=== PATIENT | female | born 1975 | race Caucasian/White ===

== ENCOUNTER → 2016-11-30 | Outpatient (CLI) | payer MEDICARE, MEDICAID ==
--- NOTE | 2016-11-30 10:58 | REP ---
Clinical: Pain. Strain. Technique: Internal rotation, external rotation, and Y view of the left shoulder. Findings: Small inferior spur at the acromion and subtle cortical irregularity at the acromioclavicular joint suggests mild degenerative change. No acute fracture or dislocation. No periarticular calcifications. Subacromial space is normal. Impression: Mild degenerative changes at the acromioclavicular joint. Signed by Tigre Bethea MD 11/30/2016 10:50 A
== END ==
LOC: M WUC 10:41
PROVIDERS: ATTEND Physician Assistant
DX: S46.812A Strain of other muscles, fascia and tendons at shoulder and upper arm level, left arm, initial encounter (principal); X58.XXXA Exposure to other specified factors, initial encounter; Y92.89 Other specified places as the place of occurrence of the external cause

== ENCOUNTER → 2017-01-19 | Outpatient (CLI) | payer MEDICARE, MEDICAID ==
[2017-01-19 13:46] LABS: BASO % 0.3 % (0.0-1.0); EOS # 0.2 K/mm3 (0.0-0.50); EOS % 2.3 % (0.0-3.0); LYMPH # 2.3 K/mm3 (1.5-4.5); LYMPH % 32.5 % (24.0-44.0); MEAN CORPUSCULAR HEMOGLOBIN 26.3 pg (27.0-33.0); MEAN CORPUSCULAR HGB CONC 31.6 g/dl (32.0-36.5); MEAN CORPUSCULAR VOLUME 83.2 fl (80.0-96.0); MONO # 0.3 K/mm3 (0.0-0.8); MONO % 4.3 % (0.0-5.0); NEUTROPHILS # 4.1 K/mm3 (1.8-7.7); NEUTROPHILS % 59.3 % (36.0-66.0); RED CELL DISTRIBUTION WIDTH 14.9 % (11.5-14.5); WHITE BLOOD COUNT 6.9 K/mm3 (4.0-10.0)
[2017-01-19 14:04] LABS: VITAMIN B12 LEVEL 297 PG/ML (247-911)
[2017-01-19 14:06] LABS: ALBUMIN 3.3 GM/DL (3.2-5.2); ALBUMIN/GLOBULIN RATIO 0.89 (1.00-1.93); ALKALINE PHOSPHATASE 96 U/L (45-117); ALT/SGPT 20 U/L (12-78); ANION GAP 7 MEQ/L (8-16); AST/SGOT 11 U/L (15-37); BILIRUBIN,TOTAL 0.4 MG/DL (0.2-1.0); BLOOD UREA NITROGEN 13 MG/DL (7-18); CALCIUM LEVEL 8.5 MG/DL (8.5-10.1); CARBON DIOXIDE LEVEL 27 MEQ/L (21-32); CHLORIDE LEVEL 104 MEQ/L (98-107); CHOLESTEROL LEVEL 190 MG/DL (<200); CREATININE FOR GFR 0.58 MG/DL (0.55-1.02); FREE T4 1.03 NG/DL (0.76-1.46); GLOMERULAR FILTRATION RATE > 60.0 (>58); GLUCOSE, FASTING 79 MG/DL (70-105); POTASSIUM SERUM 4.2 MEQ/L (3.5-5.1); SODIUM LEVEL 138 MEQ/L (136-145); TRIGLYCERIDES LEVEL 95 MG/DL (<150)
== END ==
LOC: M WUC 09:58
PROVIDERS: ATTEND Family Medicine
DX: Z00.00 Encounter for general adult medical examination without abnormal findings (principal); E78.5 Hyperlipidemia, unspecified; R73.01 Impaired fasting glucose

== ENCOUNTER 2017-05-02 16:15 | Emergency (ER) | payer MEDICARE, MEDICAID ==
[~2017-05-02] VITALS: Ht 157.5 cm; Wt 114.1 kg
[2017-05-02] MEDS ORDERED: PHEN-239 PO (16:27)
[2017-05-02] MEDS ORDERED: POLY1POW4 (16:27)
[2017-05-02] MEDS ORDERED: NS 1,000 ML IV SCH (16:55)
[2017-05-02] MEDS ORDERED: NS 1,000 ML IV ONE (17:00)
[2017-05-02] MEDS ORDERED: LORazepam 2 MG/ML VIAL (J2060) IV STA (17:00)
[2017-05-02 17:46] LABS: ANION GAP 9 MEQ/L (8-16); BASO % 0.4 % (0.0-1.0); BLOOD UREA NITROGEN 13 MG/DL (7-18); CALCIUM LEVEL 9.4 MG/DL (8.5-10.1); CARBON DIOXIDE LEVEL 26 MEQ/L (21-32); CHLORIDE LEVEL 102 MEQ/L (98-107); CREATININE FOR GFR 0.72 MG/DL (0.55-1.02); EOS # 0.2 K/mm3 (0.0-0.50); EOS % 1.8 % (0.0-3.0); FREE T4 1.13 NG/DL (0.76-1.46); GLOMERULAR FILTRATION RATE > 60.0 (>58); GLUCOSE, FASTING 93 MG/DL (70-105); LARGE UNSTAINED CELL # 0.2 K/mm3 (0.0-0.4); LARGE UNSTAINED CELL % 1.9 % (0.0-4.0); LYMPH # 3.1 K/mm3 (1.5-4.5); LYMPH % 32.9 % (24.0-44.0); MEAN CORPUSCULAR HEMOGLOBIN 27.3 pg (27.0-33.0); MEAN CORPUSCULAR HGB CONC 32.9 g/dl (32.0-36.5); MEAN CORPUSCULAR VOLUME 83.1 fl (80.0-96.0); MONO # 0.3 K/mm3 (0.0-0.8); MONO % 3.5 % (0.0-5.0); NEUTROPHILS # 5.3 K/mm3 (1.8-7.7); NEUTROPHILS % 59.5 % (36.0-66.0); PLATELET COUNT, AUTOMATED 247 k/mm3 (150-450); SODIUM LEVEL 137 MEQ/L (136-145); WHITE BLOOD COUNT 8.9 K/mm3 (4.0-10.0)
--- NOTE | 2017-05-02 19:07 | ECGEPIP ---
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
[2017-05-02 19:51] VITALS: BP 129/82
== END 2017-05-02 20:05 | disposition home or self-care (01) ==
LOC: M ED 16:15
DX: R00.2 Palpitations (principal)
CPT/HCPCS: 80048; 82550; 82553; 83735; 84439; 84443; 84484; 85025; 93005; 93041; 96374; 99285; J2060

== ENCOUNTER → 2017-06-16 | Outpatient (REF) | payer MEDICARE, MEDICAID ==
[~2017-06-16] MED LIST: NORCOTAB PO; PHEN-239 PO; POLY1POW4
[2017-06-16 13:31] LABS: MICROSCOPIC INDICATED? MAN YES (NO)
[2017-06-16 13:32] LABS: BACTERIA, URINE LARGE AMOUNT; HYALINE CAST, URINE NONE SEEN /lpf (0-1); MICROSCOPIC EXAM PERFORMED; SQUAMOUS EPITHELIAL CELL URINE SMALL AMOUNT /hpf (SMALL AMT)
== END ==
LOC: M LAB REF 12:57
PROVIDERS: ATTEND Physician Assistant
DX: M54.5 Low back pain (principal)

== ENCOUNTER → 2017-06-16 | Outpatient (CLI) | payer MEDICARE, MEDICAID ==
--- NOTE | 2017-06-16 15:08 | REP ---
CT PELVIS WITHOUT CONTRAST: 06/16/2017 CLINICAL HISTORY: Right flank pain, hematuria. COMPARISON: CT with contrast 10/28/2015. TECHNIQUE: Noncontrast protocol with coronal and sagittal reconstructions provided. FINDINGS: CT ABDOMEN: Lung bases are clear. Heart not enlarged. There is no pericardial thickening or effusion. I see no hiatal hernia. The liver, spleen, gallbladder and pancreas are grossly unremarkable. Vertical diameter of the right lobe liver is about 17 cm in the midclavicular line. Not enlarged. No intrahepatic biliary dilatation nor adjacent ascites. The gallbladder shows no calcified stone or mass but is partially contracted. No fatty liver change. No focal splenic lesion. Adrenal glands are normal. Kidneys show no stone, mass, cyst, hydronephrosis or hydroureter. Ureters are showing normal course to the bladder without filling defect or dilatation. The aorta is without aneurysm or calcifications. No periaortic or retroperitoneal pathologic sized lymphadenopathy. Small bowel loops are grossly intact. There is a tiny umbilical hernia of omental fat, unchanged. No bowel herniation. Stool and gas scattered in the colon without signs of colitis or diverticulitis. Appendix is seen and normal. Bone windows show lumbar spine without compression deformity and there is mild disc space narrowing at L4-5. Marginal osteophytes throughout the mid lower thoracic spine included. Visualized ribs are intact. Posterior elements in the lower lumbar spine show minor hypertrophic facet change at L5-S1. CT PELVIS: The SI joints show sclerosis iliac and sacral margins for mild sacroiliitis but no erosive changes. Sacrum and iliac bones, acetabuli and hips and proximal femoral shafts show only minimal degenerative change and no fractures or destructive lesions. Bladder only minimally filled without stone or wall thickening. Uterus is anteverted tilted towards the right and has an IUD in place as before. There is no adnexal mass, pelvic lymphadenopathy or free fluid. No ventral or inguinal hernia in the pelvis. Small bowel loops and colon in the pelvis are unremarkable. No colitis or, diverticulitis. IMPRESSION: 1. There is no renal, ureteral or bladder stone, hydronephrosis, hydroureter, or mass. No renal cyst. No perinephric edema. 2. Liver, spleen, gallbladder, pancreas, adrenal glands and stomach grossly intact. Small bowel loops and colon intact. No colitis, diverticulitis, appendicitis, mass or stricture. Nothing acute. Signed by Pierce Marshall MD 06/17/2017 11:38 A
== END ==
LOC: M RAD 12:58
PROVIDERS: ATTEND Physician Assistant
DX: M54.5 Low back pain (principal); Z79.899 Other long term (current) drug therapy

== ENCOUNTER 2017-06-28 19:28 | Emergency (ER) | payer OTHER, MEDICARE, MEDICAID ==
[~2017-06-28] VITALS: Ht 157.5 cm; Wt 115.9 kg
[~2017-06-28 19:28] MED LIST changes: -NORCOTAB PO
[2017-06-28] MEDS ORDERED: PERCOCET 5MG/325MG TAB PO ONE (23:00)
[2017-06-28] MEDS ORDERED: NORCOTAB PO (23:05)
[2017-06-28 23:32] VITALS: BP 136/49
--- NOTE | 2017-06-29 07:46 | REP ---
Clinical: Trauma. Injury. Comparison: 11/30/2016 . Technique: Internal rotation, external rotation, and Y view left shoulder . Findings: No acute fracture or dislocation the acromioclavicular and glenohumeral joints are intact. A small inferior spur along the acromion is again identified. No periarticular calcifications or degenerative changes are appreciated. Sub acromial space is normal. Surrounding soft tissues are unremarkable. Impression: Minimal age-related changes. No acute fracture or dislocation. Signed by Tigre Bethea MD 06/29/2017 07:37 A
== END 2017-06-28 23:34 | disposition home or self-care (01) ==
LOC: M ED 19:28
DX: S43.402A Unspecified sprain of left shoulder joint, initial encounter (principal); X50.0XXA Overexertion from strenuous movement or load, initial encounter; Y92.89 Other specified places as the place of occurrence of the external cause; Y93.89 Activity, other specified; Y99.0 Civilian activity done for income or pay

== ENCOUNTER 2017-09-22 13:04 | Emergency (ER) | payer MEDICARE, MEDICAID ==
[~2017-09-22] VITALS: Ht 157.5 cm; Wt 109.1 kg
[~2017-09-22 13:04] MED LIST changes: +NORCOTAB PO
[2017-09-22] MEDS ORDERED: MELO15TA4 (13:15)
[2017-09-22] MEDS ORDERED: KETOROLAC 30 MG/ML VIAL (J1885) IV ONE (14:00)
[2017-09-22] MEDS ORDERED: ONDANSETRON 4MG/2ML VIAL (J2405) IV ONE (14:00)
[2017-09-22] MEDS ORDERED: NS 1,000 ML IV ONE (14:00)
[2017-09-22 14:23] LABS: BASO % 0.3 % (0.0-1.0); EOS # 0.2 10^3/uL (0.0-0.50); EOS % 2.3 % (0.0-3.0); IMMATURE GRANULOCYTE % 0.2 % (0-0); LYMPH % 32.3 % (24.0-44.0); MEAN CORPUSCULAR HEMOGLOBIN 26.9 pg (27.0-33.0); MEAN CORPUSCULAR HGB CONC 31.6 g/dl (32.0-36.5); MONO # 0.5 10^3/uL (0.0-0.8); NEUTROPHILS # 5.6 10^3/uL (1.8-7.7); NEUTROPHILS % 59.9 % (36.0-66.0); PLATELET COUNT, AUTOMATED 284 10^3/uL (150-450); RED CELL DISTRIBUTION WIDTH 13.7 % (11.5-14.5); WHITE BLOOD COUNT 9.4 10^3/uL (4.0-10.0)
[2017-09-22 14:42] LABS: ALBUMIN 3.1 GM/DL (3.2-5.2); ALBUMIN/GLOBULIN RATIO 0.66 (1.00-1.93); ALKALINE PHOSPHATASE 94 U/L (45-117); ALT/SGPT 18 U/L (12-78); ANION GAP 3 MEQ/L (8-16); AST/SGOT 9 U/L (7-37); BILIRUBIN,DIRECT < 0.1 MG/DL (0.0-0.2); BILIRUBIN,TOTAL 0.2 MG/DL (0.2-1.0); BLOOD UREA NITROGEN 20 MG/DL (7-18); CALCIUM LEVEL 8.8 MG/DL (8.5-10.1); CARBON DIOXIDE LEVEL 30 MEQ/L (21-32); CHLORIDE LEVEL 105 MEQ/L (98-107); CREATININE FOR GFR 0.61 MG/DL (0.55-1.02); GLOMERULAR FILTRATION RATE > 60.0 (>58); GLUCOSE, FASTING 86 MG/DL (70-105); POTASSIUM SERUM 4.1 MEQ/L (3.5-5.1); SODIUM LEVEL 138 MEQ/L (136-145); TOTAL PROTEIN 7.8 GM/DL (6.4-8.2)
[2017-09-22 15:01] VITALS: BP 135/76
[2017-09-22] MEDS ORDERED: CIPR-249 PO (15:04)
--- NOTE | 2017-09-22 15:10 | REP ---
CT of the abdomen pelvis without IV or bowel contrast: Comparison is a 2016. There are no renal, ureteral or bladder calculi on the right on the left. There is an IUD in the midline of the uterus, unchanged. The visualized lung servin are unremarkable. The unenhanced hepatic parenchyma, gallbladder, pancreas, spleen and adrenals are unremarkable. The unenhanced abdominal aorta, bowel and mesentery are unremarkable. A tiny fat containing umbilical hernia is again identified. Pelvis: The appendix is unremarkable. The uterus, adnexa and bladder are unremarkable. There is no ascites or adenopathy. Lumbar vertebral body heights, interspacing alignment are normal. Impression: Essentially negative CT of the abdomen pelvis without IV or bowel contrast except for an IUD. There is no change from the prior study. There is no hydronephrosis. There are no renal, ureteral or bladder calculi. Signed by Jordin Gilliam MD 09/22/2017 03:02 P
== END 2017-09-22 15:23 | disposition home or self-care (01) ==
LOC: M ED 13:04
DX: N39.0 Urinary tract infection, site not specified (principal); F41.9 Anxiety disorder, unspecified; M25.512 Pain in left shoulder; Z97.5 Presence of (intrauterine) contraceptive device
CPT/HCPCS: 74176; 80048; 80076; 81001; 83690; 85025; 96374; 96375; 99284; J1885; J2405

== ENCOUNTER → 2017-12-02 | Outpatient (REF) | payer MEDICARE, MEDICAID | LOC: M LAB REF 12:54 | DX: J11.1 Influenza due to unidentified influenza virus with other respiratory manifestations (principal) | CPT/HCPCS: 87633 ==

== ENCOUNTER 2018-03-05 09:57 | Emergency (ER) | payer MEDICARE, MEDICAID | END 2018-03-05 11:00 | disposition home or self-care (01) | LOC: M ED 09:57 | DX: H00.011 Hordeolum externum right upper eyelid (principal); Z79.899 Other long term (current) drug therapy | CPT/HCPCS: 99283 ==

== ENCOUNTER 2018-03-23 13:57 | Emergency (ER) | payer MEDICARE, MEDICAID | END 2018-03-23 17:28 | disposition home or self-care (01) | LOC: M ED 17:28 | DX: F41.9 Anxiety disorder, unspecified (principal); F32.9 Major depressive disorder, single episode, unspecified; M77.9 Enthesopathy, unspecified; M25.569 Pain in unspecified knee; Z79.899 Other long term (current) drug therapy | CPT/HCPCS: 99284 ==

== ENCOUNTER → 2018-03-28 | Outpatient (CLI) | payer MEDICARE, MEDICAID | LOC: M RAD 14:51 | DX: M54.2 Cervicalgia (principal) | CPT/HCPCS: 72052 ==

== ENCOUNTER 2018-04-17 10:56 | Emergency (ER) | payer MEDICARE, MEDICAID | END 2018-04-17 13:31 | disposition home or self-care (01) | LOC: M ED 10:56 | DX: M77.9 Enthesopathy, unspecified (principal); F41.9 Anxiety disorder, unspecified; Z79.899 Other long term (current) drug therapy; Z97.5 Presence of (intrauterine) contraceptive device; Z86.2 Personal history of diseases of the blood and blood-forming organs and certain disorders involving the immune mechanism | CPT/HCPCS: 73610 ==

== ENCOUNTER 2018-04-27 11:31 | Emergency (ER) | payer MEDICARE, MEDICAID ==
[2018-04-27] MEDS: NS 1,000 ML IV (14:32)
[2018-04-27] MEDS: METOCLOPRAMIDE INJ 10MG/2ML VIAL (J2765) IV (14:32)
[2018-04-27 14:44] LABS: BASO % 0.2 % (0.0-1.0); EOS # 0.3 10^3/uL (0.0-0.50); EOS % 2.9 % (0.0-3.0); HEMATOCRIT 37.4 % (36.0-47.0); HEMOGLOBIN 11.8 g/dl (12.0-15.5); IMMATURE GRANULOCYTE % 0.3 % (0-3.0); LYMPH % 31.2 % (24.0-44.0); MEAN CORPUSCULAR HEMOGLOBIN 26.3 pg (27.0-33.0); MEAN CORPUSCULAR HGB CONC 31.6 g/dl (32.0-36.5); MEAN CORPUSCULAR VOLUME 83.3 fl (80.0-96.0); MONO # 0.5 10^3/uL (0.0-0.8); NEUTROPHILS # 5.9 10^3/uL (1.8-7.7); NEUTROPHILS % 60.4 % (36.0-66.0); PLATELET COUNT, AUTOMATED 249 10^3/uL (150-450); RED BLOOD COUNT 4.49 10^6/uL (4.00-5.40); RED CELL DISTRIBUTION WIDTH 14.1 % (11.5-14.5); WHITE BLOOD COUNT 9.7 10^3/uL (4.0-10.0)
[2018-04-27 14:48] LABS: KETONE, URINE AUTO RFX NEGATIVE (NEGATIVE); NITRITE, URINE AUTO RFX NEGATIVE (NEGATIVE); RBC, URINE AUTO RFX 5 /HPF (0-3); SQUAM EPITHELIAL CELL UR AURFX 4 /HPF (0-6); WBC, URINE AUTO RFX 2 /HPF (0-3)
[2018-04-27 15:03] LABS: ALBUMIN 3.1 GM/DL (3.2-5.2); ALBUMIN/GLOBULIN RATIO 0.66 (1.00-1.93); ALKALINE PHOSPHATASE 102 U/L (45-117); ALT/SGPT 25 U/L (12-78); AMYLASE 28 U/L (25-115); ANION GAP 7 MEQ/L (8-16); AST/SGOT 13 U/L (7-37); BILIRUBIN,DIRECT < 0.1 MG/DL (0.0-0.2); BILIRUBIN,TOTAL 0.3 MG/DL (0.2-1.0); BLOOD UREA NITROGEN 14 MG/DL (7-18); CALCIUM LEVEL 8.7 MG/DL (8.5-10.1); CARBON DIOXIDE LEVEL 27 MEQ/L (21-32); CHLORIDE LEVEL 105 MEQ/L (98-107); CREATININE FOR GFR 0.62 MG/DL (0.55-1.30); GLOMERULAR FILTRATION RATE > 60.0 (>58); GLUCOSE, FASTING 85 MG/DL (70-100); LIPASE 98 U/L (73-393); SODIUM LEVEL 139 MEQ/L (136-145); TOTAL PROTEIN 7.8 GM/DL (6.4-8.2)
[2018-04-27 15:06] LABS: LEUKOCYTE ESTERASE UR AUTO RFX 2+ (NEGATIVE)
== END 2018-04-27 15:53 | disposition home or self-care (01) ==
LOC: M ED 11:31
DX: K29.70 Gastritis, unspecified, without bleeding (principal); D64.9 Anemia, unspecified; F41.9 Anxiety disorder, unspecified; Z97.5 Presence of (intrauterine) contraceptive device; Z79.899 Other long term (current) drug therapy; Z87.891 Personal history of nicotine dependence
CPT/HCPCS: J2765

== ENCOUNTER → 2018-07-14 | Outpatient (REF) | payer MEDICARE, MEDICAID ==
[2018-07-14 19:14] LABS: INFLUENZA A AMPLIFICATION NEGATIVE (NEGATIVE); INFLUENZA B AMPLIFICATION NEGATIVE (NEGATIVE)
== END ==
LOC: M LAB REF 16:14
DX: M79.7 Fibromyalgia (principal); J02.9 Acute pharyngitis, unspecified
CPT/HCPCS: 87502

== ENCOUNTER 2018-10-31 18:01 | Emergency (ER) | payer MEDICARE, MEDICAID ==
[~2018-10-31] VITALS: Ht 157.5 cm; Wt 120.5 kg
[~2018-10-31 18:01] MED LIST changes: +CIPR-249 PO; +FLON1SPR; +INDO50CA PO; +IPRA0.00 IN; +MELO15TA28; +MIRE1IUD IU; +OMEP20TA PO; -POLY1POW4; +POLY33503; +TIZA4CAP; +ZOFR4TAB14 PO; +ZYRT10CA5 PO
[2018-10-31 19:41] LABS: BASO % 0.3 % (0.0-1.0); EOS # 0.2 10^3/uL (0.0-0.50); EOS % 2.3 % (0.0-3.0); HEMATOCRIT 38.5 % (36.0-47.0); HEMOGLOBIN 12.3 g/dl (12.0-15.5); LYMPH # 3.1 10^3/uL (1.5-4.5); LYMPH % 31.8 % (24.0-44.0); MEAN CORPUSCULAR HEMOGLOBIN 26.4 pg (27.0-33.0); MEAN CORPUSCULAR HGB CONC 31.9 g/dl (32.0-36.5); MEAN CORPUSCULAR VOLUME 82.6 fl (80.0-96.0); MONO # 0.5 10^3/uL (0.0-0.8); NEUTROPHILS % 60.4 % (36.0-66.0); PLATELET COUNT, AUTOMATED 262 10^3/uL (150-450); RED BLOOD COUNT 4.66 10^6/uL (4.00-5.40); WHITE BLOOD COUNT 9.9 10^3/uL (4.0-10.0)
[2018-10-31 19:45] LABS: INR 1.05; PROTHROMBIN TIME 13.8 SECONDS (12.1-14.4)
[2018-10-31] MEDS ORDERED: ONDANSETRON 4 MG ORAL DISINTEGRATING TAB (Q0162 PER 1MG) PO ONE (19:45)
[2018-10-31 19:46] LABS: PARTIAL THROMBOPLASTIN TIME 29.3 SECONDS (25.4-37.6)
[2018-10-31 19:52] LABS: BLOOD UREA NITROGEN 17 MG/DL (7-18); CALCIUM LEVEL 8.8 MG/DL (8.5-10.1); CARBON DIOXIDE LEVEL 27 MEQ/L (21-32); CHLORIDE LEVEL 102 MEQ/L (98-107); CK-MB VALUE MASS < 1.0 NG/ML (<3.6); CPK CREATINE PHOSPHOKINASE 61 U/L (26-192); CREATININE FOR GFR 0.78 MG/DL (0.55-1.30); GLOMERULAR FILTRATION RATE > 60.0 (>58); GLUCOSE, FASTING 87 MG/DL (70-100); MB/CK RELATIVE INDEX 1.64 (< OR =4); POTASSIUM SERUM 3.8 MEQ/L (3.5-5.1); SODIUM LEVEL 137 MEQ/L (136-145); TROPONIN I < 0.02 NG/ML (< 0.10)
[2018-10-31 20:14] LABS: ABG BASE EXCESS -1.1 (-2.0-2.0); ABG HCO3 21.2 MEQ/L (22.0-26.0); ABG O2 SATURATION 98.8 % (95.0-99.0); ABG PARTIAL PRESSURE CO2 28.5 mmHg (35.0-45.0); ABG PARTIAL PRESSURE O2 133.5 mmHg (75.0-100.0); ABG STANDARD HCO3 23.6 MEQ/L (22.0-26.0); ABG TOTAL CO2 22.1 MEQ/L (22.0-29.0); ABG pH (ARTERIAL) 7.489 UNITS (7.350-7.450)
--- NOTE | 2018-10-31 20:26 | ECGEPIP ---
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
[2018-10-31 20:30] VITALS: BP 113/70
--- NOTE | 2018-10-31 21:15 | REP ---
CHEST PA AND LATERAL: 10/31/2018. Clinical history: Cough. Findings: No prior study. Two-view show the lung servin well inflated. The CP angles are sharply defined. No dense consolidation, pleural effusion, atelectasis or mass. Heart, mediastinal and hilar contours are normal. Minor degenerative changes at multiple endplates in the spine. Aorta and airway intact. No free air under the diaphragm. Impression: 1. No definite infiltrate, effusion or other acute finding. Electronically Signed by Pierce Marshall MD 11/01/2018 08:51 A
== END 2018-10-31 20:46 | disposition home or self-care (01) ==
LOC: M ED 18:01
DX: R07.89 Other chest pain (principal); J45.909 Unspecified asthma, uncomplicated; K21.9 Gastro-esophageal reflux disease without esophagitis; M54.9 Dorsalgia, unspecified; Z97.5 Presence of (intrauterine) contraceptive device; Z79.899 Other long term (current) drug therapy
CPT/HCPCS: 36415; 36600; 71046; 80048; 82550; 82553; 82803; 84484; 85025; 85610; 85730; 93005; 99284; Q0162

== ENCOUNTER → 2018-11-03 | Outpatient (REF) | payer MEDICARE, MEDICAID ==
[2018-11-03 12:42] LABS: ALBUMIN 3.2 GM/DL (3.2-5.2); ALT/SGPT 31 U/L (12-78); BILIRUBIN,TOTAL 0.3 MG/DL (0.2-1.0); BLOOD UREA NITROGEN 13 MG/DL (7-18); CALCIUM LEVEL 8.5 MG/DL (8.5-10.1); CARBON DIOXIDE LEVEL 28 MEQ/L (21-32); CHLORIDE LEVEL 106 MEQ/L (98-107); CHOLESTEROL LEVEL 164 MG/DL (<200); CHOLESTEROL RISK RATIO 4.555 (<5); CREATININE FOR GFR 0.73 MG/DL (0.55-1.30); FREE T4 0.97 NG/DL (0.76-1.46); GLOMERULAR FILTRATION RATE > 60.0 (>58); GLUCOSE, FASTING 79 MG/DL (70-100); HDL CHOLESTEROL 36 MG/DL (>40); LDL CHOLESTEROL 104 MG/DL (<100); NON-HDL-C 128 MG/DL; SODIUM LEVEL 139 MEQ/L (136-145); TOTAL PROTEIN 7.2 GM/DL (6.4-8.2); TRIGLYCERIDES LEVEL 119 MG/DL (<150)
[2018-11-03 13:42] LABS: HEMOGLOBIN A1c 5.3 %
== END ==
LOC: M SFHCPLAZ 10:11
PROVIDERS: ATTEND Family Medicine
DX: Z13.1 Encounter for screening for diabetes mellitus (principal); E66.01 Morbid (severe) obesity due to excess calories; E07.9 Disorder of thyroid, unspecified

== ENCOUNTER 2018-11-11 17:13 | Emergency (ER) | payer MEDICARE, MEDICAID ==
[~2018-11-11] VITALS: Ht 157.5 cm; Wt 120.5 kg
[2018-11-11] MEDS ORDERED: PERCOCET 5MG/325MG TAB PO ONE (18:30)
[2018-11-11 18:45] VITALS: BP 124/77
--- NOTE | 2018-11-11 19:14 | REP ---
Clinical: Trauma/fall with pain . Comparison: None . Findings: The ventricles, sulci, and cisterns are normal in position and appearance. Roa-white differentiation is maintained. No acute intracranial hemorrhage, mass/mass effect, pathology or trauma/injury. No evidence for acute infarction. No extra-axial fluid collection. Calvarium is intact. Paranasal sinuses and mastoid air cells are relatively clear. Incidental 1 cm mucocele in the right maxillary sinus. Impression: Normal noncontrast head CT. No evidence for acute intracranial pathology or trauma/injury. Electronically Signed by Tigre Bethea MD 11/11/2018 07:06 P
--- NOTE | 2018-11-11 19:18 | REP ---
Clinical: Trauma/fall with neck pain . Technique: Axial noncontrast images from the skull base to the thoracic inlet with coronal and sagittal re-formations Findings: Normal alignment and lordosis is maintained. Mild degenerative disc osteophyte complex suggested at the C5-6 and C6-7. Cervical vertebral bodies including transverse processes and spinous processes are intact and there is no evidence for acute fracture / compression injury or subluxation. Spinal canal is patent. Posterior elements are intact. Paravertebral soft tissues are normal. Impression: Very minimal degenerative changes at C5-6 and C6-7. No evidence for acute pathology or trauma/injury. Electronically Signed by Tigre Bethea MD 11/11/2018 07:10 P
--- NOTE | 2018-11-11 19:21 | REP ---
Clinical: Trauma/fall with pain. Technique: Axial noncontrast images from T12 through mid sacrum with coronal and sagittal re-formations. Findings: Alignment and lordosis maintained. Vertebral bodies are intact and there is no evidence for acute fracture / compression injury or subluxation. Hypertrophic facet changes at L4-5 and L5-S1 along with very subtle posterior central disc bulges are appreciated causing minimal canal stenosis at L4-5. Neural foramen appear patent bilaterally. Paraspinous soft tissues appear normal. Impression: Mild degenerative disc osteophyte complexes at L4-5 and L5-L1. No acute fracture / compression injury or subluxation. Electronically Signed by Tigre Bethea MD 11/11/2018 07:13 P
[2018-11-11] MEDS ORDERED: NORCO 5/325MG TABLET (BULK FOR ED) PO ONE (20:00)
== END 2018-11-11 20:20 | disposition home or self-care (01) ==
LOC: M ED 17:13 → EDBD 17:13 → M ED 20:20
DX: S13.4XXA Sprain of ligaments of cervical spine, initial encounter (principal); S09.90XA Unspecified injury of head, initial encounter; W01.198A Fall on same level from slipping, tripping and stumbling with subsequent striking against other object, initial encounter; Y92.59 Other trade areas as the place of occurrence of the external cause; M54.9 Dorsalgia, unspecified; K21.9 Gastro-esophageal reflux disease without esophagitis; J45.909 Unspecified asthma, uncomplicated; Z79.899 Other long term (current) drug therapy

== ENCOUNTER → 2018-11-30 | Outpatient (CLI) | payer MEDICARE, MEDICAID ==
[~2018-11-30] MED LIST changes: +E-Z-GAS II EFFERVESCENT PACKET (SODIUM BICARB./CITRIC ACID/SIMETHICONE) As Ordered ONE; +E-Z-HD 98% w/w 340GM SUSP BTL As Ordered ONE; +E-Z-PAQUE 96% w/w SUSP 176GM BTL As Ordered ONE
--- NOTE | 2018-12-01 15:23 | REP ---
Esophagram The procedure was performed under the direct supervision of Dr. Roa. The images were reviewed with Dr. Roa. A single view PA chest x-ray is submitted as a primary school teacher film. The superior mediastinal structures are midline. The heart size is within normal limits. The lungs are clear. Liquid barium and gas producing granules were given in the erect position as well as liquid barium in the prone oblique positions in order to perform a double contrast esophagram examination. The oral and pharyngeal stages of deglutition are unremarkable. Esophageal transport is prompt and efficient and there is no esophagitis, stricture, mucosal ring or hiatal hernia. Gastroesophageal reflux is not demonstrated on this examination. Impression: Essentially unremarkable double contrast esophagram examination. 0.5 minutes of fluoro time was utilized for this procedure. Reviewed by KRISTI Vogel 11/30/2018 05:38 P Electronically Signed by Jordin Roa MD 12/01/2018 03:14 P
== END ==
LOC: M RAD 08:37
PROVIDERS: ATTEND Family Medicine
DX: R07.2 Precordial pain (principal)

== ENCOUNTER → 2018-12-29 | Outpatient (CLI) | payer MEDICARE, MEDICAID ==
[~2018-12-29] MED LIST changes: -E-Z-GAS II EFFERVESCENT PACKET (SODIUM BICARB./CITRIC ACID/SIMETHICONE) As Ordered ONE; -E-Z-HD 98% w/w 340GM SUSP BTL As Ordered ONE; -E-Z-PAQUE 96% w/w SUSP 176GM BTL As Ordered ONE
--- NOTE | 2018-12-30 07:20 | REP ---
RIGHT ANKLE, FOUR VIEWS: HISTORY: Pain. There is no acute fracture or dislocation. The joint space is normal in appearance. A calcified density is present inferior to the medial malleolus. This represents ligamentous or tendon calcification. An osteophyte is present on the inferior calcaneus. IMPRESSION: There is no acute fracture or dislocation. Electronically Signed by Didier House MD 12/30/2018 08:09 A
== END ==
LOC: M WUC 15:41
PROVIDERS: ATTEND Physician Assistant
DX: M25.571 Pain in right ankle and joints of right foot (principal)

== ENCOUNTER → 2019-02-28 | Outpatient (CLI) | payer MEDICARE, MEDICAID ==
[~2019-02-28] MED LIST changes: +HYDR-3715 PO; -INDO50CA PO; +INDO50CA11 PO; -NORCOTAB PO
--- NOTE | 2019-02-28 13:33 | REP ---
Right os calcis: Two views. History: Right heel pain. Findings: There is a large plantar and a small Achilles calcaneal spur visible on the lateral film. There is mild tibiotalar spurring as well. Bones, joints and soft tissues are otherwise unremarkable. Impression: Heel spurs. No acute bony abnormality. Electronically Signed by Milo Cabrera MD 02/28/2019 01:25 P
== END ==
LOC: M RAD 12:44
PROVIDERS: ATTEND Physician Assistant
DX: M77.31 Calcaneal spur, right foot (principal)

== ENCOUNTER 2019-07-11 23:56 | Emergency (ER) | payer MEDICARE, MEDICAID ==
[~2019-07-11 23:56] MED LIST changes: -INDO50CA11 PO; +INDO50CA91 PO
[2019-07-12] MEDS ORDERED: BENZ200C70 PO (00:02)
[2019-07-12] MEDS ORDERED: OSEL75CA2 PO (00:02)
[2019-07-12] MEDS ORDERED: PRED10PA2 PO (00:02)
[2019-07-12] MEDS ORDERED: IPRATROPIUM 0.5MG/ALBUTEROL 2.5MG INH SOL UD 3ML (DUONEB)(J7620) NEB PRN (01:30)
[2019-07-12] MEDS ORDERED: AZITHROMYCIN 250 MG TAB PO ONE (02:00)
[2019-07-12] MEDS ORDERED: PROAAER10 INH (02:12)
[2019-07-12] MEDS ORDERED: AZIT-12 PO (02:12)
[2019-07-12] MEDS ORDERED: ALBUTEROL 90 MCG/ACT 8GM HFA INHALER INH ONE (02:15)
[2019-07-12 02:32] VITALS: BP 171/81
--- NOTE | 2019-07-12 07:40 | REP ---
PA and lateral chest: Comparison is 10/31/2018. There is a left lower lobe infiltrate as an interval change. There is no pleural effusion. Right lung is clear. Cardiac size is normal. The albaro, mediastinum, skeletal structures are unremarkable. Impression: Left lower lobe infiltrate. Electronically Signed by Jordin Gilliam MD 07/12/2019 07:31 A
== END 2019-07-12 05:45 | disposition home or self-care (01) ==
LOC: M ED 23:56
DX: J18.9 Pneumonia, unspecified organism (principal); M10.9 Gout, unspecified; Z79.899 Other long term (current) drug therapy; Z87.891 Personal history of nicotine dependence

== ENCOUNTER 2019-08-15 20:37 | Emergency (ER) | payer MEDICARE, MEDICAID ==
[~2019-08-15] VITALS: Ht 157.5 cm; Wt 122.7 kg
[~2019-08-15 20:37] MED LIST changes: +AZIT-12 PO; +BENZ200C70 PO; +OMEP-358 PO; -OMEP20TA PO; +OSEL75CA2 PO; +PRED10PA2 PO; +PROAAER10 INH
[2019-08-15 20:38] VITALS: BP 146/82
[2019-08-15] MEDS ORDERED: BUPR75TA5 (20:47)
[2019-08-15] MEDS ORDERED: ZOLP10TA2 (20:47)
[2019-08-15] MEDS ORDERED: MELO15TA28 (20:47)
[2019-08-15] MEDS ORDERED: ACET1TAB16 (20:47)
[2019-08-15] MEDS ORDERED: RANI150T14 (20:47)
[2019-08-15] MEDS ORDERED: ALL10TAB29 (20:47)
[2019-08-15] MEDS ORDERED: TRAM50TA2 (20:47)
[2019-08-15] MEDS ORDERED: NALT50TA4 (20:47)
[2019-08-15] MEDS ORDERED: FLUTISP (20:47)
[2019-08-15] MEDS ORDERED: METOCLOPRAMIDE 10 MG TAB PO ONE (22:15)
[2019-08-15] MEDS ORDERED: METHOCARBAMOL 750 MG TAB PO ONE (22:15)
[2019-08-15] MEDS ORDERED: KETOROLAC 60 MG/2 ML VIAL (J1885) IM ONE (22:15)
== END 2019-08-15 23:07 | disposition home or self-care (01) ==
LOC: M ED 20:37
DX: M62.838 Other muscle spasm (principal); R51 Headache; Z79.51 Long term (current) use of inhaled steroids; Z79.899 Other long term (current) drug therapy
CPT/HCPCS: 96372; 99283; J1885

== ENCOUNTER → 2019-11-29 | Outpatient (CLI) | payer MEDICARE, MEDICAID ==
[~2019-11-29] MED LIST changes: +ACET1TAB16; +ALL10TAB29; +BUPR75TA5; +FLUTISP; +NALT50TA4; +RANI150T14; +TRAM50TA2; +ZOLP10TA2
[2019-11-29 13:42] LABS: BASO % 0.4 % (0.0-1.0); EOS # 0.2 10^3/uL (0.0-0.5); EOS % 2.4 % (0.0-3.0); HEMOGLOBIN 12.1 g/dl (12.0-15.5); LYMPH % 35.6 % (24.0-44.0); MEAN CORPUSCULAR HEMOGLOBIN 25.9 pg (27.0-33.0); MEAN CORPUSCULAR HGB CONC 30.3 g/dl (32.0-36.5); MEAN CORPUSCULAR VOLUME 85.7 fl (80.0-96.0); MONO # 0.4 10^3/uL (0.0-0.8); MONO % 5.1 % (0.0-5.0); NEUTROPHILS # 4.8 10^3/uL (1.5-8.5); NEUTROPHILS % 56.3 % (36.0-66.0); PLATELET COUNT, AUTOMATED 265 10^3/uL (150-450); RED BLOOD COUNT 4.67 10^6/uL (4.00-5.40); WHITE BLOOD COUNT 8.5 10^3/uL (4.0-10.0)
[2019-11-29 13:54] LABS: ALBUMIN 3.5 GM/DL (3.2-5.2); ALT/SGPT 27 U/L (12-78); BILIRUBIN,TOTAL 0.3 MG/DL (0.2-1.0); BLOOD UREA NITROGEN 13 MG/DL (7-18); CARBON DIOXIDE LEVEL 27 MEQ/L (21-32); CHLORIDE LEVEL 106 MEQ/L (98-107); CHOLESTEROL LEVEL 192 MG/DL (<200); CHOLESTEROL RISK RATIO 4.363 (<5); CREATININE FOR GFR 0.76 MG/DL (0.55-1.30); GLOMERULAR FILTRATION RATE > 60.0 (>58); GLUCOSE, FASTING 106 MG/DL (70-100); HDL CHOLESTEROL 44 MG/DL (>40); LDL CHOLESTEROL 123 MG/DL (<100); NON-HDL-C 148 MG/DL; POTASSIUM SERUM 4.6 MEQ/L (3.5-5.1); SODIUM LEVEL 138 MEQ/L (136-145); TOTAL PROTEIN 7.7 GM/DL (6.4-8.2); TRIGLYCERIDES LEVEL 125 MG/DL (<150)
[2019-11-29 14:13] LABS: HEMOGLOBIN A1c 5.8 %
[2019-11-29 16:14] LABS: HEPATITIS B SURFACE ANTIGEN NEGATIVE (NEGATIVE)
[2019-11-30 10:53] LABS: HEPATITIS C VIRUS ABY INDEX < 0.0 INDEX (<0.8)
== END ==
LOC: M PLALAB 10:13
PROVIDERS: ATTEND Nurse Practitioner Family
DX: E78.2 Mixed hyperlipidemia (principal); Z13.228 Encounter for screening for other metabolic disorders

== ENCOUNTER → 2020-02-14 | Outpatient (REF) | payer MEDICARE, MEDICAID ==
[2020-02-14 18:09] LABS: APPEARANCE, URINE CLEAR (CLEAR); BACTERIA, URINE AUTO 1+ (NEGATIVE); BILIRUBIN, URINE AUTO NEGATIVE (NEGATIVE); BLOOD, URINE BLOOD 1+ (NEGATIVE); COLOR, URINE YELLOW (YELLOW); GLUCOSE, URINE (UA) AUTO NEGATIVE (NEGATIVE); KETONE, URINE AUTO NEGATIVE (NEGATIVE); LEUKOCYTE ESTERASE, URINE AUTO NEGATIVE (NEGATIVE); NITRITE, URINE AUTO NEGATIVE (NEGATIVE); PROTEIN, URINE AUTO NEGATIVE (NEGATIVE); RBC, URINE AUTO 3 /HPF (0-3); SPECIFIC GRAVITY URINE AUTO 1.016 (1.002-1.035); SQUAMOUS EPITHELIAL CELL UR AU 2 /HPF (0-6); UROBILINOGEN, URINE AUTO 0.2 mg/dL (0.0-2.0); WBC, URINE AUTO 1 /HPF (0-3)
[2020-02-14 18:13] LABS: BASO % 0.5 % (0.0-1.0); EOS # 0.1 10^3/uL (0.0-0.5); EOS % 1.6 % (0.0-3.0); HEMATOCRIT 40.2 % (36.0-47.0); HEMOGLOBIN 12.2 g/dl (12.0-15.5); LYMPH # 2.2 10^3/uL (1.5-5.0); LYMPH % 25.5 % (24.0-44.0); MEAN CORPUSCULAR HEMOGLOBIN 25.8 pg (27.0-33.0); MEAN CORPUSCULAR HGB CONC 30.3 g/dl (32.0-36.5); MONO # 0.3 10^3/uL (0.0-0.8); NEUTROPHILS # 5.8 10^3/uL (1.5-8.5); PLATELET COUNT, AUTOMATED 279 10^3/uL (150-450); RED BLOOD COUNT 4.73 10^6/uL (4.00-5.40); WHITE BLOOD COUNT 8.6 10^3/uL (4.0-10.0)
[2020-02-14 18:23] LABS: ALBUMIN 3.3 GM/DL (3.2-5.2); ALT/SGPT 23 U/L (12-78); BILIRUBIN,TOTAL 0.3 MG/DL (0.2-1.0); BLOOD UREA NITROGEN 15 MG/DL (7-18); CALCIUM LEVEL 8.7 MG/DL (8.5-10.1); CARBON DIOXIDE LEVEL 28 MEQ/L (21-32); CHLORIDE LEVEL 107 MEQ/L (98-107); CHOLESTEROL LEVEL 223 MG/DL (<200); CHOLESTEROL RISK RATIO 5.068 (<5); CREATININE FOR GFR 0.61 MG/DL (0.55-1.30); FREE T4 0.97 NG/DL (0.76-1.46); GLOMERULAR FILTRATION RATE > 60.0 (>58); GLUCOSE, FASTING 90 MG/DL (70-100); HDL CHOLESTEROL 44 MG/DL (>40); LDL CHOLESTEROL 146 MG/DL (<100); NON-HDL-C 179 MG/DL; POTASSIUM SERUM 4.2 MEQ/L (3.5-5.1); SODIUM LEVEL 139 MEQ/L (136-145); TOTAL PROTEIN 7.5 GM/DL (6.4-8.2); TRIGLYCERIDES LEVEL 166 MG/DL (<150)
[2020-02-14 18:25] LABS: TOTAL 25(OH) VITAMIN D 16.8 NG/ML (30.0-100.0)
[2020-02-14 18:29] LABS: HEMOGLOBIN A1c 5.4 %
== END ==
LOC: M LAB REF 16:33
PROVIDERS: ATTEND Nurse Practitioner Family
DX: Z13.9 Encounter for screening, unspecified (principal); F41.1 Generalized anxiety disorder; J30.2 Other seasonal allergic rhinitis; E66.01 Morbid (severe) obesity due to excess calories

== ENCOUNTER → 2020-04-27 | Outpatient (CLI) | payer MEDICARE, MEDICAID ==
[~2020-04-27] MED LIST changes: -ALL10TAB29; +CETI-24
--- NOTE | 2020-05-07 11:51 | SLEEPCENT ---
DATE OF PROCEDURE: 04/27/2020 ORDERED BY: VIVIANE Jean Nocturnal polysomnography was performed for evaluation of sleep physiology in this patient with a history of excessive somnolence, morning headaches, and nonrestorative sleep. 8 hours and 6 minutes of data were reviewed. There were 399.5 minutes of sleep identified. Sleep latency was prolonged at 35 minutes. Rapid eye movement (REM) latency was prolonged at 126 minutes. Sleep architecture showed fragmentation. There were 3 REM cycles noted. Overall sleep efficiency 83.2%. The electrocardiogram showed a sinus rhythm with an average heart rate of 70 beats per minute. Electroencephalogram (EEG) showed normal waveforms for awake and sleep. There were 68 respiratory events identified of 10 seconds in duration or greater for an apnea-hypopnea index of 10.2. The events were obstructive not exclusive to sleep stage nor body posture. Arousals from respiratory events occurred 2.9 times per hour and oxygen desaturations were seen into the 80s. There was some activity noted in the limb electromyogram (EMG) leads from time to time. Limb movement arousal index was only 2.6. IMPRESSION: Obstructive sleep apnea syndrome (G47.33). Apnea-hypopnea index 10.2. RECOMMENDATIONS: The patient should be encouraged to return to the sleep disorder center for pressure therapy. In the interim, alcohol and sedative avoidance should be practiced and caution exercised during the operation of motor vehicles.
== END ==
LOC: M SLEEP 20:00
PROVIDERS: ATTEND Physician Assistant
DX: R06.83 Snoring (principal)

== ENCOUNTER → 2020-05-12 | Outpatient (REF) | payer MEDICARE, MEDICAID ==
[2020-06-06 21:13] LABS: BASO % 0.4 % (0.0-1.0); EOS # 0.2 10^3/uL (0.0-0.5); HEMATOCRIT 40.1 % (36.0-47.0); HEMOGLOBIN 12.3 g/dl (12.0-15.5); LYMPH # 2.4 10^3/uL (1.5-5.0); LYMPH % 25.1 % (24.0-44.0); MEAN CORPUSCULAR HEMOGLOBIN 26.2 pg (27.0-33.0); MEAN CORPUSCULAR HGB CONC 30.7 g/dl (32.0-36.5); MEAN CORPUSCULAR VOLUME 85.5 fl (80.0-96.0); MONO # 0.5 10^3/uL (0.0-0.8); MONO % 4.9 % (0.0-5.0); NEUTROPHILS # 6.3 10^3/uL (1.5-8.5); NEUTROPHILS % 67.4 % (36.0-66.0); PLATELET COUNT, AUTOMATED 274 10^3/uL (150-450); RED BLOOD COUNT 4.69 10^6/uL (4.00-5.40); WHITE BLOOD COUNT 9.4 10^3/uL (4.0-10.0)
[2020-06-13 13:25] LABS: ALBUMIN 3.3 GM/DL (3.2-5.2); ALT/SGPT 20 U/L (12-78); BILIRUBIN,TOTAL 0.3 MG/DL (0.2-1.0); BLOOD UREA NITROGEN 17 MG/DL (7-18); CALCIUM LEVEL 8.9 MG/DL (8.5-10.1); CARBON DIOXIDE LEVEL 26 MEQ/L (21-32); CHLORIDE LEVEL 108 MEQ/L (98-107); CHOLESTEROL LEVEL 188 MG/DL (<200); GLOMERULAR FILTRATION RATE > 60.0 (>58); GLUCOSE, FASTING 92 MG/DL (70-100); HDL CHOLESTEROL 39 MG/DL (>40); LDL CHOLESTEROL 114 MG/DL (<100); NON-HDL-C 149 MG/DL; POTASSIUM SERUM 4.7 MEQ/L (3.5-5.1); SODIUM LEVEL 141 MEQ/L (136-145); TOTAL 25(OH) VITAMIN D 28.3 NG/ML (30.0-100.0); TOTAL PROTEIN 7.3 GM/DL (6.4-8.2); TRIGLYCERIDES LEVEL 174 MG/DL (<150)
== END ==
LOC: M LAB REF 11:33
PROVIDERS: ATTEND Nurse Practitioner Family
DX: E55.9 Vitamin D deficiency, unspecified (principal); E78.5 Hyperlipidemia, unspecified; K21.9 Gastro-esophageal reflux disease without esophagitis; Z13.9 Encounter for screening, unspecified; E66.01 Morbid (severe) obesity due to excess calories

== ENCOUNTER → 2020-10-12 | Outpatient (CLI) | payer MEDICARE, MEDICAID ==
--- NOTE | 2020-10-13 15:17 | SLEEPCENT ---
NOCTURNAL POLYSOMNOGRAPHY DATE: 10/12/2020 ORDERED BY: SHANNON Jean Nocturnal polysomnography was performed for the titration of pressure therapy in this patient with obstructive sleep apnea syndrome with apnea-hypopnea index of 10.2. For testing a Respironics ComfortGel nasal petite mask was used, 4 cm of water pressure were applied to the circuit, and the lights were extinguished. 7 hours and 32 minutes of data were reviewed. There were 392 minutes of sleep identified. Sleep latency was normal at 9 minutes. REM latency was normal at 70 minutes. Sleep architecture good with five REM cycles noted. Overall sleep efficiency was 87.4%. The electrocardiogram showed a sinus rhythm with an average heart rate of 65 beats per minute. Occasional unifocal ventricular ectopic beats were seen. EEG showed normal waveforms for wake and sleep. Respiratory events were fully palliated with CPAP at a pressure of +5 and remaining measures of sleep physiology were normal. IMPRESSION: Obstructive sleep apnea syndrome (G47.33). RECOMMENDATION: Nightly use of pressure therapy [address] Gregory
== END ==
LOC: M SLEEP 20:00
PROVIDERS: ATTEND Physician Assistant
DX: G47.33 Obstructive sleep apnea (adult) (pediatric) (principal)

== ENCOUNTER 2020-12-04 12:57 | Emergency (ER) | payer MEDICARE, MEDICAID ==
[~2020-12-04] VITALS: Ht 157.5 cm; Wt 123.2 kg
--- OUTSIDE RECORDS SUMMARY | 2020-12-04 13:29 | CCD ---
Author Author [facility] Organization [facility] Address Unknown Phone Unavailable Care Team Providers Care Electromedical Service Engineer Name Role Phone Geoff Katz MD Unavailable Unavailable Geoff Katz MD Unavailable Unavailable Geoff Katz MD Unavailable Unavailable Geoff Katz MD Unavailable Unavailable Geoff Katz MD Unavailable Unavailable Geoff Katz MD Unavailable Unavailable Geoff Katz MD Unavailable Unavailable Geoff Katz MD Unavailable Unavailable Geoff Katz MD Unavailable Unavailable Geoff Katz MD Unavailable Unavailable Geoff Katz MD Unavailable Unavailable Geoff Katz MD Unavailable Unavailable Geoff Katz MD Unavailable Unavailable Geoff Katz MD Unavailable Unavailable Geoff Katz MD Unavailable Unavailable Geoff Katz MD Unavailable Unavailable Geoff Katz MD Unavailable Unavailable Geoff Katz MD Unavailable Unavailable Geoff Katz MD Unavailable Unavailable Geoff Katz MD Unavailable Unavailable Geoff Katz MD Unavailable Unavailable Geoff Katz MD Unavailable Unavailable Geoff Katz MD Unavailable Unavailable Geoff Katz MD Unavailable Unavailable Geoff Katz MD Unavailable Unavailable Syeda Matthews DIRECTOR OF OCCUPATIONAL HEALTH DIRECTOR OF OCCUPATIONAL HEALTH Unavailable Unavailable JULIAN, M NBA PA Unavailable Unavailable JULIAN, M NBA PA Unavailable Unavailable JULIAN, M NBA PA Unavailable Unavailable JULIAN, M NBA PA Unavailable Unavailable JULIAN, M NBA PA Unavailable Unavailable JULIAN, M NBA PA Unavailable Unavailable JULIAN, M NBA PA Unavailable Unavailable JULIAN, M NBA PA Unavailable Unavailable JULIAN, M NBA PA Unavailable Unavailable JULIAN, M NBA PA Unavailable Unavailable JULIAN, M NBA PA Unavailable Unavailable JULIAN, M NBA PA Unavailable Unavailable JULIAN, M NBA PA Unavailable Unavailable JULIAN, M NBA PA Unavailable Unavailable JULIAN, M NBA PA Unavailable Unavailable JULIAN, M NBA PA Unavailable Unavailable JULIAN, M NBA PA Unavailable Unavailable JULIAN, M NBA PA Unavailable Unavailable JULIAN, M NBA PA Unavailable Unavailable JULIAN, M NBA PA Unavailable Unavailable JULIAN, M NBA PA Unavailable Unavailable JULIAN, M NBA PA Unavailable Unavailable JULIAN, M NBA PA Unavailable Unavailable JULIAN, M NBA PA Unavailable Unavailable JULIAN, M NBA PA Unavailable Unavailable JULIAN, M NBA PA Unavailable Unavailable JULIAN, M NBA PA Unavailable Unavailable JULIAN, M NBA PA Unavailable Unavailable JULIAN, M NBA PA Unavailable Unavailable JULIAN, M NBA PA Unavailable Unavailable JULIAN, M NBA PA Unavailable Unavailable JULIAN, M NBA PA Unavailable Unavailable JULIAN, M NBA PA Unavailable Unavailable Byron, A Syeda DIRECTOR OF OCCUPATIONAL HEALTH Unavailable Unavailable Byron, A Syeda DIRECTOR OF OCCUPATIONAL HEALTH Unavailable Unavailable Byron, A Syeda DIRECTOR OF OCCUPATIONAL HEALTH Unavailable Unavailable Byron, A Syeda DIRECTOR OF OCCUPATIONAL HEALTH Unavailable Unavailable Byron, A Syeda DIRECTOR OF OCCUPATIONAL HEALTH Unavailable Unavailable Byron, A Syeda DIRECTOR OF OCCUPATIONAL HEALTH Unavailable Unavailable Byron, A Syeda DIRECTOR OF OCCUPATIONAL HEALTH Unavailable Unavailable Byron, A Syeda DIRECTOR OF OCCUPATIONAL HEALTH Unavailable Unavailable Byron, A Syeda DIRECTOR OF OCCUPATIONAL HEALTH Unavailable Unavailable Byron, A Syeda DIRECTOR OF OCCUPATIONAL HEALTH Unavailable Unavailable Byron, A Syeda DIRECTOR OF OCCUPATIONAL HEALTH Unavailable Unavailable Byron, A Syeda DIRECTOR OF OCCUPATIONAL HEALTH Unavailable Unavailable Byron, A Syeda DIRECTOR OF OCCUPATIONAL HEALTH Unavailable Unavailable Byron, A Syeda DIRECTOR OF OCCUPATIONAL HEALTH Unavailable Unavailable Byron, A Syeda DIRECTOR OF OCCUPATIONAL HEALTH Unavailable Unavailable Byron, A Syeda DIRECTOR OF OCCUPATIONAL HEALTH Unavailable Unavailable Byron, A Syeda DIRECTOR OF OCCUPATIONAL HEALTH Unavailable Unavailable Byron, A Syeda DIRECTOR OF OCCUPATIONAL HEALTH Unavailable Unavailable Byron, A Syeda DIRECTOR OF OCCUPATIONAL HEALTH Unavailable Unavailable Byron, A Syeda DIRECTOR OF OCCUPATIONAL HEALTH Unavailable Unavailable Byron, A Syeda DIRECTOR OF OCCUPATIONAL HEALTH Unavailable Unavailable Byron, A Syeda DIRECTOR OF OCCUPATIONAL HEALTH Unavailable Unavailable Byron, A Syeda DIRECTOR OF OCCUPATIONAL HEALTH Unavailable Unavailable Byron, A Syeda DIRECTOR OF OCCUPATIONAL HEALTH Unavailable Unavailable Byron, A Syeda DIRECTOR OF OCCUPATIONAL HEALTH Unavailable Unavailable Byron, A Syeda DIRECTOR OF OCCUPATIONAL HEALTH Unavailable Unavailable Byron, A Syeda DIRECTOR OF OCCUPATIONAL HEALTH Unavailable Unavailable Byron, A Syeda DIRECTOR OF OCCUPATIONAL HEALTH Unavailable Unavailable Re-disclosure Warning The records that you are about to access may contain information from federally-assisted alcohol or drug abuse programs. If such information is present, then the following federally mandated warning applies: This information has been disclosed to you from records protected by federal confidentiality rules (42 CFR part 2). The federal rules prohibit you from making any further disclosure of this information unless further disclosure is expressly permitted by the written consent of the person to whom it pertains or as otherwise permitted by 42 CFR part 2. A general authorization for the release of medical or other information is NOT sufficient for this purpose. The Federal rules restrict any use of the information to criminally investigate or prosecute any alcohol or drug abuse patient.The records that you are about to access may contain highly sensitive health information, the redisclosure of which is protected by Article 27-F of the [facility] Public Health law. If you continue you may have access to information: Regarding HIV / AIDS; Provided by facilities licensed or operated by the [facility] Office of Mental Health; or Provided by the [facility] Office for People With Developmental Disabilities. If such information is present, then the following [facility] mandated warning applies: This information has been disclosed to you from confidential records which are protected by state law. State law prohibits you from making any further disclosure of this information without the specific written consent of the person to whom it pertains, or as otherwise permitted by law. Any unauthorized further disclosure in violation of state law may result in a fine or fpc sentence or both. A general authorization for the release of medical or other information is NOT sufficient authorization for further disc losure. Allergies and Adverse Reactions Type Description Substance Reaction Status Data Source(s ) Miscellaneous allergy SEASONAL SEASONAL [facility] Family History Family Member Name Family Member Gender Family Member Status Date o f Status Description Data Source(s) Unknown Male Problem [facility] ([facility]) Encounters Encounter Providers Location Date Indications Data Source(s ) Outpatient Attender: NBA Swartz/River/Nirmal/Rein dl 09/19/2020 09:00:00 AM EST [facility] ([facility]) Outpatient Attender: Gelacio Swartz/Dina/Re indl 08/19/2020 12:10:00 PM EST [facility] ([facility]) Outpatient Attender: HERLINDA FERREIRA 08/06/2020 10:31:01 A M EDT [facility] Outpatient Attender: Syeda FERREIRA 08/04/2020 03:5 0:01 PM EDT [facility] Outpatient Attender: HERLINDA FERREIRA 07/23/2020 09:37:01 A M EDT [facility] Unknown [address] [address] 07/18/2020 12:00:00 AM EDT eCW1 ([facility]) Outpatient Attender: Syeda FERREIRA 07/02/2020 10:1 1:01 AM EDT [facility] Outpatient Attender: Syeda FERREIRA 06/27/2020 05:2 4:00 PM EDT [facility] Outpatient Attender: Syeda FERREIRA 06/26/2020 03:0 0:09 PM EDT [facility] Outpatient Attender: HERLINDA PATE FP 06/20/2020 12:19:02 P M EDT [facility] Outpatient Attender: Syeda PATE FP 06/20/2020 12:1 9:01 PM EDT [facility] Outpatient Attender: Syeda Byron PATE FP 06/17/2020 02:3 5:01 PM EDT [facility] Outpatient Attender: HERLINDA PATE FP 06/12/2020 07:04:01 A M EDT [facility] Outpatient Attender: Syeda Byron PATE FP 06/12/2020 03:4 1:01 AM EDT [facility] Outpatient Attender: HERLINDA PATE FP 06/11/2020 12:56:03 P M EDT [facility] Outpatient Attender: HERLINDA PATE FP 06/09/2020 12:37:00 P M EDT [facility] Outpatient Attender: Syeda PATE FP 05/26/2020 01:5 6:00 AM EDT [facility] Outpatient Attender: Syeda PATE FP 05/26/2020 01:5 5:01 AM EDT [facility] Outpatient Attender: HERLINDA SIMMSP FP 05/19/2020 10:24:00 A M EDT [facility] Outpatient Attender: HERLINDA PATE FP 05/12/2020 09:15:01 A M EDT [facility] Outpatient Attender: HERLINDA PATE FP 03/25/2020 08:03:02 P M EDT [facility] Outpatient Attender: HERLINDA PATE FP 03/14/2020 11:10:00 A M EDT [facility] Health [facility] [address] [facility] [address] 03/14/2020 12:00:00 AM EDT eC ([facility]) Outpatient Attender: HERLINDA PATE FP 02/25/2020 09:01:05 P M EDT [facility] Outpatient Attender: HERLINDA PATE FP 02/25/2020 01:15:01 P M EDT [facility] Outpatient Attender: HERLINDA PATE FP 02/20/2020 09:01:11 P M EDT [facility] Outpatient Attender: HERLINDA Matthews DIRECTOR OF OCCUPATIONAL HEALTH FP 02/20/2020 01:56:01 P M EDT [facility] Outpatient Attender: HERLINDA SIMMSP FP 02/20/2020 01:56:01 P M EDT [facility] Outpatient Attender: Syeda SIMMSP FP 02/20/2020 01:5 6:01 PM EDT [facility] Outpatient Attender: HERLINDA SIMMSP FP 02/20/2020 01:00:02 P M EDT [facility] Outpatient Attender: HERLINDA Matthews DIRECTOR OF OCCUPATIONAL HEALTH FP 02/18/2020 09:01:13 P M EDT [facility] Outpatient Attender: HERLINDA SIMMSP FP 02/18/2020 02:16:01 P M EDT [facility] Outpatient Attender: Syeda SIMMSP FP 02/14/2020 11:0 9:01 PM EDT [facility] Outpatient Attender: HERLINDA SIMMSP FP 02/14/2020 11:09:01 P M EDT [facility] Outpatient Attender: Syeda Matthews DIRECTOR OF OCCUPATIONAL HEALTH FP 02/14/2020 11:0 8:00 PM EDT [facility] Outpatient Attender: HERLINDA Matthews DIRECTOR OF OCCUPATIONAL HEALTH FP 02/14/2020 11:08:00 P M EDT [facility] Outpatient Attender: HERLINDA SIMMSP FP 02/14/2020 09:01:09 P M EDT [facility] Outpatient Attender: Syeda SIMMSP FP 02/14/2020 03:3 0:03 PM EDT [facility] Outpatient Attender: HERLINDA SIMMSP FP 02/14/2020 10:38:01 A M EDT [facility] Outpatient Attender: HERLINDA SIMMSP FP 02/11/2020 09:01:05 P M EDT [facility] Outpatient Attender: HERLINDA SIMMSP FP 02/11/2020 03:12:00 P M EDT [facility] Outpatient Attender: Syeda SIMMSP FP 01/26/2020 10:4 6:02 PM EDT [facility] Outpatient Attender: HERLINDA SIMMSP FP 01/26/2020 10:40:01 P M EDT [facility] Outpatient Attender: HERLINDA SIMMSP FP 01/22/2020 04:02:01 P M EDT [facility] Outpatient Attender: HERLINDA Matthews DIRECTOR OF OCCUPATIONAL HEALTH FP 01/22/2020 12:00:27 A M EDT [facility] Outpatient Attender: HERLINDA Matthews DIRECTOR OF OCCUPATIONAL HEALTH FP 01/21/2020 09:01:05 P M EDT [facility] Outpatient Attender: HERLINDA Matthews DIRECTOR OF OCCUPATIONAL HEALTH FP 01/21/2020 04:48:02 P M EDT [facility] Outpatient Attender: HERLINDA Matthews DIRECTOR OF OCCUPATIONAL HEALTH FP 01/21/2020 03:57:00 P M EDT [facility] Outpatient Attender: HERLINDA Matthews DIRECTOR OF OCCUPATIONAL HEALTH FP 01/21/2020 03:55:00 P M EDT [facility] Outpatient FP 01/21/2020 10:31:01 AM EDT [facility] Outpatient FP 01/15/2020 11:36:01 AM EDT [facility] Outpatient FP 01/15/2020 11:35:00 AM EDT [facility] [address] [place] [address], [place] [address] 01/07/2020 12:00:00 AM EDT eCW1 ([facility]) Outpatient FP 12/22/2019 09:01:03 PM EST [facility] Outpatient FP 12/22/2019 08:10:01 AM EST [facility] Outpatient FP 12/22/2019 08:09:01 AM EST [facility] Outpatient FP 12/22/2019 08:03:00 AM EST [facility] Health [facility] [address] [place] [address] 12/21/2019 12:00:00 AM EST eCW1 ([facility]) [facility] [address] [facility] [address] 12/18/2019 12:00:00 AM EST eCW1 ([facility]) Outpatient FP 12/14/2019 10:23:00 AM EST [facility] Outpatient FP 12/12/2019 10:36:00 AM EST [facility] [place] [address] [facility] [address] 12/04/2019 12:00:00 AM EST eCW1 ([facility]) Outpatient FP 11/30/2019 09:19:11 AM EST [facility] [address] [facility] [address] 11/30/2019 12:00:00 AM EST eCW1 ([facility]) [facility] [address] [facility] [address] 11/30/2019 12:00:00 AM EST eCW1 ([facility]) [facility] [address] [place] [address], [place] [address] 11/29/2019 12:00:00 AM EST eCW1 ([facility]) [facility] [address] [place] [address], [place] [address] 11/19/2019 12:00:00 AM EST eCW1 ([facility]) [facility] [address] [place] [address], [place] [address] 11/12/2019 12:00:00 AM EST eCW1 ([facility]) [facility] [address] [place] [address], [place] [address] 10/30/2019 12:00:00 AM EST eCW1 ([facility]) Medications Medication Brand Name Start Date Product Form Dose Route Admi nistrative Instructions Pharmacy Instructions Status Indications Reaction Description Data Source(s) [facility] 10/16/2020 12:00:00 AM EST active [facility] ([facility] ) 24 HR Bupropion Hydrochloride 150 MG Ext ended Release Oral Tablet [Wellbutrin] Wellbutrin XL 150 MG Wellbutrin XL 150 MG 11/12/2019 12:00:00 AM EST 1.0 {tablet_in_the_morning} active Wellbutr in XL 150 MG eCW1 ([facility]) 24 HR Bupropion Hydrochloride 150 MG Ext ended Release Oral Tablet [Wellbutrin] Wellbutrin XL 150 MG Wellbutrin XL 150 MG 11/12/2019 12:00:00 AM EST active 1 tablet in the morning eCW1 ([facility]) Insurance Providers Payer name Policy type / Coverage type Policy ID Covered republican ID Covered republican's relationship to smith Policy Smith Plan Information EMEDNY [id number] SP [id number] MEDICARE [id number] SP [id number] MEDICARE C [id number] S [id number] MEDICAID M [id number] S [id number] Medicaid S [id number] S [id number] Medicare P [id number] S [id number] H57 MEDICAID [id number] SP [id number] Medicaid S [id number] S [id number] Self Pay P UNAVAILABLE S UNAVAILA BLE MEDICARE [id number] SP [id number] ANSI-Medicare Part B [id number] [facility] [id number] Medicaid [place] [id number] Self [id number] [place] Primary [id number] Self [id number] [facility]-Medicaid [id number] ANSI-Medicare Part B [id number] ANSI-Medicare Part B [id number] [facility] [id number] Medicaid [place] [id number] Self [id number] [place] Primary [id number] Self [id number] Medicaid [facility] S D [id number] SELF [id number] Medicare C [id number] SELF [id number] DME Jurisdiction A [facility] C [id number] SELF [id number] Medicare C [id number] SELF [id number] ANSI-Medicaid [id number] ANSI-Medicare Part B [id number] Medicare [facility] Medicare Primary [id number] Self [id number] ANSI-Medicare Part B [id number] ANSI-Medicaid [id number] ANSI-Medicaid [id number] ANSI-Medicare Part B [id number] ANSI-Medicare Part B [id number] ANSI-Medicaid [id number] ANSI-Medicare Part B [id number] [facility]-Medicaid [id number] [facility]-Medicare Part B [id number] [facility]-Medicaid [id number] ANSI-Medicare Part B [id number] [facility]-Medicaid [id number] Medicare Natl Gov't Servi Medicare Primary [id number] Self [id number] MEDICAID [id number] SP [id number] MEDICARE [id number] SP [id number] MEDICARE [id number] SP [id number] Medicare [facility] Part B [id number] Self [id number] [place] Med[place] Part B [id number] Self [id number] Medicaid [facility] [id number] Self [id number] Medicare [facility] Medicare Primary [id number] Self [id number] Travelers Ins () Workers Compensation [id number] Self [id number] Medicare [facility] Part B [id number] Self [id number] [place] Med[place]ap Part B [id number] Self [id number] Medicaid [place] Medig[place] Part B [id number] Self [id number] ANSI-Medicare Part B [id number] ANSI-Medicaid [id number] ANSI-Medicaid [id number] ANSI-Medicare Part B [id number] ANSI-Medicaid [id number] ANSI-Medicare Part B [id number] ANSI-Medicaid [id number] ANSI-Medicare Part B [id number] ANSI-Medicare Part B [id number] ANSI-Medicaid [id number] ANSI-Medicaid [id number] ANSI-Medicare Part B [id number] ANSI-Medicaid [id number] ANS-Medicare Part B [id number] ANSI-Medicaid [id number] ANSI-Medicare Part B [id number] MEDICARE [id number] SP [id number] MEDICAID [id number] SP [id number] Medicaid [facility] [id number] Self [id number] Medicare [facility] Part B [id number] Self [id number] Medicare [facility] Medicare Primary [id number] Self [id number] MEDICARE [id number] S [id number] MEDICAID [place] [id number] MEDICARE PART A [facility] [id number] 18 [id number] [place] [id number] Self [id number] Medicare Part A [place] Medicare Primary [id number] Self [id number] [place] Medig[place] Part B [id number] Self [id number] [place] Medigap Part B [id number] Self [id number] TRAVELERS NO FAULT O [id number] S [id number] Medicaid [place] Medicaid [id number] Self [id number] Medicare Part A [place] Medicare Primary [id number] Self [id number] MEDICAID -O/P [id number] MEDICARE PART A -O/P [id number] 18 [id number] [place] [id number] Self [id number] Medicare Part A [place] Medicare Primary [id number] Self [id number] [place] [id number] Self [id number] Medicare Part A [place] Primary [id number] Self [id number] [place] [id number] Self [id number] [place] Part B [id number] Self [id number] TRAVELERS WORKER COMP [id number] SP [id number] [place] Part [place] [id number] Self [id number] [place] Med[place] Part B [id number] Self [id number] ONE CALL CARE MANAGEMENT O [id number] S [id number] [place] Med[place] Part B [id number] Self [id number] [place] Med[place] Part B [id number] Self [id number] [employer] [place]) Workers Compensation [id number] Self [id number] Medicaid [place] Medig[place] Part [place] [id number] Self [id number] [place] Med[place] Part B [id number] Self [id number] [employer] [place]) Workers Compensation [id number] Self [id number] SP [id number] Medicare [place] Gov't Servi Medicare Primary [id number] Self [id number] Medicare [place] Gov't Servi Medicare Primary [id number] Self [id number] MEDICARE [id number] SP [id number] [place] [id number] Self [id number] Medicare Part A [place] Primary [id number] Self [id number] MEDICAID -PHYSICIAN [id number] [place] [id number] Self [id number] Medicare Part A [place] Primary [id number] Self [id number] Medicare [place] Gov't Serv[place] Medicare Primary [id number] Self [id number] [place] [id number] Self [id number] Medicare Part A [place] Primary [id number] Self [id number] [place] [id number] Self [id number] Medicare Part A [place] Medicare Primary [id number] Self [id number] [place] [id number] Self [id number] Medicare Part A [place] Primary [id number] Self [id number] [place] [id number] Self [id number] Medicare [facility] Medicare Primary [id number] Self [id number] [place] [id number] Self [id number] Medicare Part A [place] Primary [id number] Self [id number] MEDICAID -CLINIC [id number] [place] [id number] S elf [id number] Medicare Part A [place] Medicare Primary [id number] Self [id number] MEDICAID [facility] UNAVAILABLE 18 UNAVAI LABLE [place] Medig[place] Part B [id number] Self [id number] Medicare [facility] Medicare Primary [id number] Self [id number] Medicare Part A [place] Medicare Primary [id number] Self [id number] [place] [id number] Self [id number] Medicare [place] Primary [id number] Self [id number] Medicare [place] Gov't Servi Medicare Primary Self MEDICAID [id number] SP [id number] MEDICARE PART A -CLINIC [id number] 18 [id number] MEDICARE -O/P [id number] 18 [id number] MEDICAID -O/P EMERGENCY ROOM [id number] 18 [id number] Problems, Conditions, and Diagnoses Code Display Name Description Problem Type Effective Dates Data Source(s) 50084407 Obstructive sleep apnea syndrome Obstructive sle ep apnea syndrome Problem 09/19/2020 12:00:00 AM [facility] MARGARET ([facility] AURA [place]) [id number] Allergic rhinitis, unspecified Allergic rhinitis, unsp ecified 06/11/2020 12:54:32 PM EDT [facility] 268.9 vitamin D deficiency vitamin D deficiency 02/19 01:55:43 PM EDT [facility] [id number] Hyperlipidemia, unspecified Hyperlipidemia, unspecifie d 02/20/2020 01:55:43 PM EDT [facility] V65.8 Person consulting for explanation of exa mination or test findings Person consulting for explanation of examination or test findings 02/20/2020 01:55:43 PM EDT [facility] [id number] Gastro-esophageal reflux disease without esophagitis Gastro-esophageal reflux disease without esophagitis 02/20/2020 01:55:43 PM E DT [facility] R03.0 Elevated blood-pressure reading, without diagnosis of hypertension Elevated blood-pressure reading, without diagnosis of hypertension 01/26/2020 10:39:07 PM EDT [facility] V76.51 Encounter for screening for malignant ne oplasm of colon Encounter for screening for malignant neoplasm of colon 01/21/2020 04:47:0 5 PM EDT [facility] V70.0 Health Screening Health Screening 01/21/2020 04 :47:05 PM EDT [facility] 300.02 Generalized anxiety disorder Generalized anxiety disor salazar 01/21/2020 04:47:05 PM EDT [facility] J30.2 Other seasonal allergic rhinitis Other seasonal allerg ic rhinitis 01/21/2020 04:47:05 PM EDT [facility] 278.01 Morbid obesity Morbid obesity 01/21/2020 04:47: 05 PM EDT [facility] E78.2 [id number] Mixed hyperlipidemia Problem 11/12/2019 12:0 0:00 AM EST eCW1 ([facility]) F33.8 Seasonal affective disorder Seasonal affective disorde r Problem 11/12/2019 12:00:00 AM EST eCW1 ([facility]) E78.2 [id number] Mixed hyperlipidemia Problem 11/12/2019 12:0 0:00 AM EST eCW1 ([facility]) F33.8 Seasonal affective disorder Seasonal affective disorde r Problem 11/12/2019 12:00:00 AM EST eCW1 ([facility]) E66.01 [id number] Morbid obesity Problem 10/30/2019 12:00:00 A M EST eCW1 ([facility]) E66.01 [id number] Morbid obesity Problem 10/30/2019 12:00:00 A M EST eCW1 ([facility]) Surgeries/Procedures Procedure Description Date Indications Data Source(s) Physical Therapy Eval - Low Complexity 11/17/2020 12:0 0:00 AM EST [facility] ([facility] ) THERAPEUTIC PX 1/> AREAS EACH 15 MIN EXERCISES 020 12:00:00 AM EST [facility] ([facility]) Physical Therapy Eval - Low Complexity 09/22/2020 12:0 0:00 AM EST [facility] ([facility]) MED NUTRITION INDIV SUBSEQ 12/18/2019 12:00:00 AM EST eCW1 ([facility]) Office Visit, Est Pt., Level 4 PC 11/12/2019 12:00:00 AM EST eCW1 ([facility]) Office Visit, Est Pt., Level 3 PC 10/30/2019 12:00:00 AM EST eCW1 ([facility]) Results ID Date Data Source [id number] 09/04/2020 12:00:00 AM EST [facility] Gelacio Katz MD Patient Name: BEAU [id number] [facility] Date of : 1975[address] Date of Exam: 09/04/2020JESUS Hensley [id number]#: Fax: [phone] EXAM: MRI KNEE LEFT WITHOUT CONTRASTCLINICAL INFORMATION: Pain.3T multiplanar MRI imaging of the left knee was obtained using varioussequences. Secondary to the patient's body habitus, the dedicated kneecoil could not be utilized to obtain the exam. This causes imagedegradation.There are no prior left knee MRI's for comparison.The anterior and posterior horns of the lateral meniscus are within normallimits. The anterior and posterior horns of the medial meniscus are withinnormal limits. Mild Grade I signal change is seen in the posterior horn.The anterior and posterior cruciate ligaments are intact. Th e quadricepsand patellar tendons are intact. The medial and lateral collateralligaments are intact. The medial and lateral patellar retinacula areintact. There is advanced thinning and irregularity of all articularcartilages, particularly the cartilaginous surfaces of the patellofemoralgroove. There is evidence of asymmetric patellofemoral joint narrowingwith slight lateral patellar subluxation. There is tricompartmentalmarginal osteophytosis. There is a minimal joint effusion. There is noBaker's cyst. There is a tiny incidental cyst seen in the midline proximaltibial metaphysis at the level of the tibial eminences.IMPRESSION:1. 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 No evidence of acute internal derangement. There are some degenerativemeniscal changes as described above.3. Other findings as described above.Accredited by the [employer] in MR.HERBERT Pérez/Jose Alfredo you for referring ELIZABETH SANTOS to our office. Electronically Signed - ELY BLACK DO 09/05/20 16:48 Name Value Range Interpretation Code Description Data Cindy rce(s) Supporting Document(s) ID Date Data Source [id number] 06/11/2020 11:46:25 AM EDT [facility] Measurements & CalculationsHeight: 62 inches (5 ft. 2 in.) 157.48 cm Weight: 282 pounds 6 oz. 128.35 kg Body Mass Index (BMI): 51.83BMI Interpretation: Morbidly ObeseBody Surface Area (BSA): 2.22Weight Management Education Done (Nutrition/Physical Activity)Vital SignsTemperature: 98.1F oral Pulse Rate: 80 beats/minuteRespiratory Rate: 16 respirations/minuteBlood Pressure: 132/82 left arm sitting automaticO2 Saturation: 99% Vital Signs performed by: Swati Araiza MA, June 11, 2020 12:03 PMInitial Intake Information From: patientRoom #: 14Infectious Disease / Travel ScreeningRecent travel for you or any close contacts? NoHave you had any close contact with anyone diagnosed with or under investigation for COVID-19 (coronavirus)? NoFever? NoRespiratory symptoms: cough, cold, congestion, shortness of breath, difficulty breathing? NoLoss of smell? NoLoss of taste? NoSmoking, Tobacco, Vaping or Smoke Exposure StatusSmoke Status: former smokerTobacco Use: NoDo you vape? NoPassive Smoke Exposure: NoMenstrual HistoryAny possibility of ? NoComments: IUD unkown LMPHealthcare HistorySince your last office visit...Have you been admitted to the hospital? NoHave you been to an emergency room (ER) or urgent care clinic? NoHave you seen another healthcare provider? NoHave you seen a dentist? NoIntake performed by: Swati Araiza MA, June 11, 2020 11:51 AMRate Your HealthIn general, would you say your health is? GoodPain AssessmentAre you currently having any pain whi ch... You would like your provider to address? No Affects your activity level? NoDepression Screening - PHQ-2Over the last two weeks, have you... Had little interest or pleasure in doing things? Not at all Been feeling down, depressed, or hopeless? Several days PHQ-2 Score: 1Anxiety Screening - KEVIN-2Over the last two weeks, have you been... Feeling nervous, anxious, or on edge? More than half the days Unable to stop or control worrying? Several days KEVIN- 2 Score: 3Food InsecurityWithin the past year...Did you worry whether your food would run out before you got money to buy more? Never trueWas there a time when the food you bought didn't last and you didn't have money to get more? Never truePatient Learning & Communication Needs Preferred learning style: by experiencePossible barriers: nonePatient's Language used in visit: YesLanguage: englishAssessment of health literacy: AdequatePHQ-9 1. Over the last 2 weeks, patient reports the following frequency of symptoms: a. Little interest or pleasure in doing things -Not at all b. Feeling down, depressed, or hopeless -Several days c. Trouble falling asleep, staying asleep, or sleeping too much -Not at all d. Feeling tired or having little energy -Several days e. Poor appetite or overeating -Not at all f. Feeling bad about yourself, feeling that you are a failure, or feeling that you have let yourself or your family down -Not at all g. Trouble concentrating on things such as reading the newspaper or watching television -Not at all h. Moving or speaking so slowly that other people could have noticed. Or being so fidgety or restless that you have been moving around a lot more than usual -Not at all i. Thinking that you would be better off or that you want to hurt yourself in some way -Not at all2. If you checked off any problems, how difficult have these problems made it for you to do your work, take care of things at home, or get along with other people? - Not Difficult at AllToday's PHQ-9 Results Score: 2 Severity: Minimal Diagnosis Recommendation: No recommendation Functional Impairment: Not Difficult at AllToday's Follow-Up Action Depression follow-up done. Follow-Up Action: Continue To Take Medications as PrescribedGeneralized Anxiety Disorder 7-Item Screening (KEVIN-7)Answer Guide:0 = Not at all1 = Several days2 = Over half the days3 = Nearly every dayOver the last 2 weeks, how often have you been bothered by the following problems?Feeling nervous, anxious, or on edge: 2Not being able to stop or control worryinWorrying too much about different things: 2Trouble relaxinBeing so restless that it's hard to sit still: 0Becoming easily annoyed or irritable: 1Feeling afraid as if something awful might happen: 0Answer Guide:0 = Not difficult at all1 = Somewhat difficult2 = Very difficult3 = Extremely difficultHow difficult have these made it for you to do your work, take care of things at home, or get along with other people? 0GAD-7 Screening Results KEVIN-2 Score: 3GAD-7 Score: 7Functional Impairment: Not difficult at allRecommendation: Mild anxietyScreening, Brief Intervention, & Referral to Treatment (SBIRT)Pre-Screening Questions How many times have you have 4 or more drinks in a day? 0How many times have you used an illegal drug or used a prescription medication for a non-medical reason? 0Performed by: Swati Araiza MA, June 11, 2020 11:56 AMPatient History Medical History:Surgical History:Family History:Cancer - Colorectal (Father)Hypothyroidism (Mother)Social/Personal History:lives with her cat Chief Complaintlab results- hemmoroids-RM 14History of Present Illness (HPI)45 yo female here for follow up visit and review of lab results. Pt states increase allergic rhinitis. Pt states zertec have not been working and she is unable to tolerate claritin. Pt states also allergic to bee sting. Pt requesting epipen. Pt states increased anxiety. 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 HPI performed by: Syeda PATE, June 11, 2020 12:28 PMProblem ReviewProblem List was reviewed and/or updated during this visit.Medication Reconciliation & ReviewMedication List was reviewed and/or updated during this visit, including review of any loab-zwc-krcayrx medications, herbal therapies, and/or supplements.Allergy ReviewAllergy List was reviewed and/or updated during this visit.Adult Preventive CareProvider Calculated and Reviewed all Clinical Protocols for patient today. Labs/Meds/Other Counseling-Nutrition and Physical Activity:BMI Interpretation: Morbidly Obese (06/11/2020) Counseling: Done (06/11/2020) Physical Activity: Done (06/11/2020)Review of Systems General: Denies loss of appetite, chills, dizziness, fatigue, fever, continued fever, headache, feeling ill, sweats, night sweats, sleep disturbances, weight loss. Eyes: Denies blurring of vision, double vision, irritation, discharge, vision loss, eye pain, eye swelling, droopy eyelid, sensitivity to light, redness, itching. Ears/Nose/Throat: Complains of runny nose. Denies earache, ear discharge, ringing in ears, decreased hearing, nosebleeds, sore throat, hoarseness, difficulty swallowing, dry mouth, tooth pain, bleeding gums, swollen glands. Cardiovascular: Denies chest pain, palpitations, feeling faint, trouble breathing w/exertion, SOB upon lying down, SOB at night, peripheral edema, elevated blood pressure, decreased heart rate. Respiratory: Denies c ough, difficulty breathing, shortness of breath, excessive sputum, coughing up blood, wheezing, chest pain. Breast: Denies discoloration, tenderness, breast changes, breast lump, nipple discharge. Gastrointestinal: Denies nausea, vomiting. Genitourinary: Denies urinary incontinence, pain with urination, burning with urination, urinary frequency, urinary hesitancy, urinary urgency, urinary urgency at night, incomplete emptying, blood in urine. Musculoskeletal: Denies back pain, joint pain, leg pain, other pain-see comments, joint swelling, body aches, muscle aches, muscle cramps, muscle weakness, stiffness, recent injury. Skin: Denies rash, hives, redness, itching, dryness, nail changes, suspicious lesions, athlete's foot, rash on palms, rash on bottom of feet. Neurologic: Denies muscle impairment, weakness, numbness/tingling, seizures, slurred speech, feeling faint, tremors, vertigo, paralysis on one side, paralysis on both sides. Psychiatric: Complains of anxiety. Denies depression, memory loss, mental disturbance, suicidal ideation, homicidal ideation, hallucinations, paranoia, feeling stressed, hearing voices. Endocrine: Denies cold intolerance, heat intolerance, excessive thirst, excessive hunger, excessive urination, weight loss, weight gain. Heme/Lymphatic: Denies abnormal bruising, bleeding, enlarged lymph nodes. Physical ExamGeneral Appearance: well nourished, well hydrated, no acute distressEyes, External: conjunctivae and lids normal, EOMIRespiratory, Auscultation: clear to auscultation bilaterally; no rales, rhonchi, or wheezesRespiratory, Effort: no intercostal retractions or use of accessory musclesCardiovascular, Auscultation: S1, S2 audible; no murmur, rub, or gallop; RRRPeripheral Circulation: no clubbing, cyanosis, edema, or varicositiesAbdomen: obese, soft, non-tender, no masses, bowel sounds normalGait & Station: normalSkin, Inspection: no rashes, lesions, or ulcerationsOrientation: oriented to time, place, and personMood & Affect: no depression, anxiety, or agitationJudgment & Insight: seems intactRate Your HealthIn general, would you say your health is? GoodAssessment & Plan Problems:Added: Allergic rhinitis, unspecified (AGK64-I00.9) Assessment: Instructions: We have changed your zertec to Singulair. Please take as prescribed. Please report any major side effects. epi sent for you to use as needed.Assessed:Person consulting for explanation of examination or test findings (ICD-V65.8) (QYU45-Y41.2) Assessment: Instructions: We have reviewed your lab results with you today.Morbid obesity (ICD-278.01) (PKE01-N58.01) Assessment: Instructions: Referral made for you today. We will contact you to set this up. Please continue healthy diet and physical activities.Generalized anxiety disorder (ICD-300.02) (IPR60-U35.1) Assessment: Instructions: Referral made for you today. We will contact you to set this up.Hyperlipidemia, unspecified (SDQ43-Z21.5) Assessment: Instructions: Please continue lifestyle changes to include healthy diet and physical activities. Please try to avoid processed foods.Patient Instructions/Care Plan: Allergic rhinitis- unspecified: We have changed your zertec to Singulair. Please take as prescribed. Please report any major side effects. epi sent for you to use as needed.Person consulting for explanation of examination or test findings: We have reviewed your lab results with you today.Morbid obesity: Referral made for you today. We will contact you to set this up. Please continue healthy diet and physical activities.Generalized anxiety disorder: Referral made for you today. We will contact you to set this up.Hyperlipidemia- unspecified: Please continue lifestyle changes to include healthy diet and physical activities. Please try to avoid processed foods. Plan developed in collaboration with patient and/or familyMedications:HYDROCORTISONE (PERIANAL) 2.5 % EXTERNAL CREAMEPIPEN 2-MAICO 0.3 MG/0.3ML INJECTION SOLUTION AUTO-INJECTORVITAMIN D3 14206 UNIT ORAL TABLETPEPCID 20 MG ORAL TABLETFLONASESINGULAIR 10 MG ORAL TABLETBUPROPION XL 150MGMedication Changes:Refilled:SINGULAIR 10 MG ORAL TABLET-take one tablet by mouth daily in the evenings. Qty: 30[Tablet] Refills: 2 Method: ElectronicNew Prescription:EPIPEN 2-MAICO 0.3 MG/0.3ML INJECTION SOLUTION [id number] as needed as directed. Qty: 2[Prefilled Pen Syrnge] Refills: 2 Method: ElectronicHYDROCORTISONE (PERIANAL) 2.5 % EXTERNAL CREAM- apply twice daily as needed, dale anal Qty: 2[Tube] Refills: 2 Method: ElectronicChanged:From: ORAL * ZYTEC Refills: 30[Tablet] To: SINGULAIR 10 MG ORAL TABLET-take one tablet by mouth daily in the evenings. Qty: 30[Tablet] Refills: 2Allergies:* SEASONAL (Moderate)Orders:Nutrition [CPT-63829] Mental Health Consult [CPT-26735] COMP METABOLIC PANEL [CPT-06916] CBC W/DIFF [CPT- 45878] HgBA1c [CPT-81524] LIPID PANEL [CPT-09535] Vitamin D 250H Unspecified [CPT-93143] Adult - Ofc Vst, EST, Level IV [CPT-36923] Follow-Up Return to clinic: 3 months for follow up Clinical Visit Summary CompletedMedications:HYDROCORTISONE (PERIANAL) 2.5 % EXTERNAL CREAM (HYDROCORTISONE) apply twice daily as needed, dale anal #2[Tube] x 2 Route:EXTERNAL Entered and Authorized by: Syeda PATE Method used: Electronically to [facility]* (retail) [address] [place] [address] Note to Pharmacy: Route: EXTERNAL; RxID: [id number] 2-MAICO 0.3 MG/0.3ML INJECTION SOLUTION AUTO-INJECTOR (EPINEPHRINE) inject as needed as directed. #2[Prefilled Pen Syrnge] x 2 Route:INJECTION Entered and Authorized by: Syeda PATE Method used: Electronically to [facility]* (retail) [place] [address] Note to Pharmacy: Route: INJECTION; RxID: [id number] 10 MG ORAL TABLET (MONTELUKAST SODIUM) take one tablet by mouth daily in the evenings. #30[Tablet] x 2 Route:ORAL Entered and Authorized by: Syeda PATE Method used: Electronically to [facility]* (retail) [place] [address] Note to Pharmacy: Route: ORAL; Indications: ALLERGIC RHINITIS, UNSPECIFIED RxID: [id number] signed by Syeda PATE on 06/12/2020 at 3:40 AM Name Value Range Interpretation Code Description Data Cindy rce(s) Supporting Document(s) ID Date Data Source [id number] 05/12/2020 01:58:27 PM EDT [facility] Labs In-House Blood TestsDate/Time Colle cted: May 12, 2020 10:00 AMTest Result Reference Range Normal ValueComments: blood draw done in office,angelique hi from left , tolerated well.Tasha Domínguez, May 12, 2020 1:59 PMAssessment & Plan Orders:[id number] Vst-Est Level I [CPT-97903] 32340 - Venipuncture [CPT-21120] Name Value Range Interpretation Code Description Data Cindy rce(s) Supporting Document(s) ID Date Data Source [id number] 05/12/2020 10:00:00 AM EDT [facility] Name Value Range Interpretation Code Description Data Cindy rce(s) Supporting Document(s) HCT 40.1 % 36.0-47.0 N [facility] HGB 12.3 g/dL 12.0-15.5 N [facility] MCH 30.7 G/DL pg 32.0-36.5 [facility] MCHC 26.2 PG % 27.0-33.0 L [facility] PLATELETS 274 10 10*3/mm3 150-450 N [facility] RBC 4.69 10 10*6/mm3 4.00-5.40 N [facility] RDW 14.2 % 11.5-14.5 N [facility] WBC TOTAL 9.4 4.0-10.0 N [facility] ID Date Data Source [id number] 05/12/2020 10:00:00 AM EDT [facility] Name Value Range Interpretation Code Description Data Cindy rce(s) Supporting Document(s) VIT D25 TOT 28.3 ng/mL 30.0-100.0 L [facility] BG FASTING 92 mg/dL 70-100 N [facility] ID Date Data Source [id number] 02/20/2020 12:59:47 PM EDT [facility] Measurements & CalculationsHeight: 62 inches (5 ft. 2 in.) 157.48 cm Weight: 277.6 pounds 126.18 kg Body Mass Index (BMI): 50.96BMI Interpretation: Morbidly ObeseBody Surface Area (BSA): 2.20Weight Management Education Done (Nutrition/Physical Activity)Vital SignsTemperature: 98.4FPulse Rate: 92 beats/minuteRespiratory Rate: 14 respirations/minuteBlood Pressure: 136/87 O2 Saturation: 97% Vital Signs performed by: Dulce Maria Navarro LPN, February 20, 2020 1:00 PMVital Signs performed by: Dulce Maria Navarro LPN, February 20, 2020 1:00 PMInitial Intake Information From: patientRoom #: 12Infectious Disease / Travel ScreeningRecent travel for you or any close contacts? NoHave you had any close contact with anyone diagnosed with or under investigation for COVID-19 (coronavirus)? NoFever? NoRespiratory symptoms: cough, cold, congestion, shortness of breath, difficulty breathing? NoLoss of smell? NoLoss of taste? NoSmoking, Tobacco, Vap ing or Smoke Exposure StatusSmoke Status: never smokerTobacco Use: NoDo you vape? NoMenstrual HistoryAny possibility of ? NoComments: IUD Healthcare HistorySince your last office visit...Have you been admitted to the hospital? NoHave you been to an emergency room (ER) or urgent care clinic? NoHave you seen another healthcare provider? NoHave you seen a dentist? NoIntake performed by: Dulce Maria Navarro LPN, February 20, 2020 1:07 PMRate Your HealthIn general, would you say your health is? GoodPain AssessmentAre you currently having any pain which... You would like your provider to address? No Affects your activity level? NoDepression Screening - PHQ-2Over the last two weeks, have you... Had little interest or pleasure in doing things? Not at all Been feeling down, depressed, or hopeless? Not at all PHQ-2 Score: 0Anxiety Screening - KEVIN-2Over the last two weeks, have you been... Feeling nervous, anxious, or on edge? Not at all Unable to stop or control worrying? Not at all KEVIN-2 Score: 0Food InsecurityWithin the past year...Did you worry whether your food would run out before you got money to buy more? NoWas there a time when the food you bought didn't last and you didn't have money to get more? NoScreening, Brief Intervention, & Referral to Treatment (SBIRT)Pre-Screening Questions How many times have you have 4 or more drinks in a day? 0How many times have you used an illegal drug or used a prescription medication for a non- medical reason? 0Performed by: Dulce Maria Navarro LPN, February 20, 2020 1:10 PMPatient History Family History:Cancer - Colorectal (Father)Social/Personal History: Chief Complaintfollow-up visit Lab results room 12History of Present Illness (HPI)44 YO female here for follow up on Lab results, needs med for acid reflux , Pt states was on Prilosec in the past. Pt states healthy diet and physical activities. Pt states taking medications as prescribed. HPI performed by: Syeda PATE, February 20, 2020 1:41 PMProblem ReviewProblem List was reviewed and/or updated during this visit.Medication Reconciliation & ReviewMedication List was reviewed and/or updated during this visit, including review of any rcny-npe-tgxbeun medications, herbal therapies, and/or supplements.Allergy ReviewAllergy List was reviewed and/or updated during this visit.Adult Preventive CareProvider Calculated and Reviewed all Clinical Protocols for patient today. Labs/Meds/Other Counseling-Nutrition and Physical Activity:BMI Interpretation: Morbidly Obese (02/20/2020) Counseling: Done (02/20/2020) Physical Activity: Done (02/20/2020)Cancer Screening Pap Smear/HPV TestingReviewed: Previous Comments: has referral women to women (01/21/2020)Today's Comments: Has referral to women to women Review of Systems General: Denies loss of appetite, chills, dizziness, fatigue, fever, continued fever, headache, feeling ill, sweats, night sweats, sleep disturbances, weight loss. Eyes: Denies blurring of vision, double vision, irritation, discharge, vision loss, eye pain, eye swelling, droopy eyelid, sensitivity to light, redness, itching. Ears/Nose/Throat: Denies earache, ear discharge, ringing in ears, decreased hearing, nasal congestion, nosebleeds, runny nose, sore throat, hoarseness, difficulty swallowing, dry mouth, tooth pain, bleeding gums, swollen glands. Cardiovascular: Denies chest pain, palpitations, feeling faint, trouble breathing w/exertion, SOB upon lying down, SOB at night, peripheral edema, elevated blood pressure, decreased heart rate. Respiratory: Denies cough, difficulty breathing, shortness of breath, excessive sputum, coughing up blood, wheezing, chest pain. Breast: Denies discoloration, tenderness, breast changes, breast lump, nipple discharge. Gastrointestinal: Complains of heartburn. Denies nausea, vomiting, bleeding, burning, itching, irritation, cramps, diarrhea, constipation. Genitourinary: Denies urinary incontinence, pain with urination, burning with urination, urinary frequency, urinary hesitancy, urinary urgency, urinary urgency at night, incomplete emptying, blood in urine. Musculoskeletal: Denies back pain, joint pain, leg pain, other pain-see comments, joint swelling, body aches, muscle aches, muscle cramps, muscle weakness, stiffness, recent injury. Skin: Denies rash, hives, redness, itching, dryness, nail changes, suspicious lesions, athlete's foot, rash on palms, rash on bottom of feet. Neurologic: Denies muscle impairment, weakness, numbness/tingling, seizures, slurred speech, feeling faint, tremors, vertigo, paralysis on one side, paralysis on both sides. Psychiatric: Denies depression, anxiety, memory loss, mental disturbance, suicidal ideation, homicidal ideation, hallucinations, paranoia, feeling stressed, hearing voices. Endocrine: Denies cold intolerance, heat intolerance, excessive thirst, excessive hunger, excessive urination, weight loss, weight gain. Physical ExamGeneral Appearance: well nourished, well hydrated, no acute distressEyes, External: conjunctivae and lids normal, EOMIRespiratory, Auscultation: clear to auscultation bilaterally; no rales, rhonchi, or wheezesRespiratory, Effort: no intercostal retractions or use of accessory musclesCardiovascular, Auscultation: S1, S2 audible; no murmur, rub, or gallop; RRRPeripheral Circulation: no clubbing, cyanosis, edema, or varicositiesAbdomen: soft, non-tender, no masses, bowel sounds normalGait & Station: normalSkin, Inspection: no rashes, lesions, or ulcerationsOrientation: oriented to time, place, and personMood & Affect: no depression, anxiety, or agitationJudgment & Insight: intactRate Your HealthIn general, would you say your health is? GoodAssessment & Plan Problems:Added: Person consulting for explanation of examination or test findings (ICD-V65.8) (VZP15-Q85.2) Assessment: Instructions: We have reviewed your lab results with you today.Gastro-esophageal reflux disease without esophagitis (EHJ65-A20.9) Assessment: Instructions: We have sent a prescription to your pharmacy today. Please take medication as prescribed. Please report any major side effects. Please try to avoid spicy and acidic foods. Please try to maintain adequate intake of water daily.Hyperlipidemia, unspecified (LRP25-U80.5) Assessment: Instructions: Please continue lifestyle changes to include healthy diet and physical activities. Please try to avoid processed foods.vitamin D deficiency (ICD-268.9) (VYU32-T25.9) Assessment: Instructions: Vitamin D tablets sent to pharmacy for you today.Person consulting for explanation of examination or test findings (ICD-V65.8) (RBO38-M82.2) Assessment: labs unremarkable except for elevated cholesterol and Vitamin D Deficiency. Lifestyle changes discussed. Will recheck in three monthsAssessed:Health Screening (ICD-V70.0) (QKV49-N19.9) Assessment: labs unremarkable except for elevated cholesterol and Vitamin D Deficiency. Lifestyle changes discussed. Will recheck in three months Instructions: labs reviewed with you today. Will recheck in three months.Patient Instructions/Care Plan: Person consulting for explanation of examination or test findings: We have reviewed your lab results with you today.Gastro-esophageal reflux disease without esophagitis: We have sent a prescription to your pharmacy today. Please take medication as prescribed. Please report any major side effects. Please try to avoid spicy and acidic foods. Please try to maintain adequate intake of water daily.Hyperlipidemia- unspecified: Please continue lifestyle changes to include healthy diet and physical activities. Please try to avoid processed foods.vitamin D deficiency: Vitamin D tablets sent to pharmacy for you today.Health Screening: labs reviewed with you today. Will recheck in three months. Plan developed in collaboration with patient and/or familyMedications:VITAMIN D3 35785 UNIT ORAL TABLETPEPCID 20 MG ORAL TABLETFLONASEZYTECBUPROPION XL 150MGMedication Changes:New Prescription:PEPCID 20 MG ORAL TABLET-take one tablet by mouth twice daily Qty: 60[Tablet] Refills: 2 Method: ElectronicVITAMIN D3 31354 UNIT ORAL TABLET-1 po q wk for 12 wks, then change to 1000 unit tablet daily thereafter Qty: 12[Tablet] Refills: 0 Method: ElectronicAllergies:* SEASONAL (Moderate)Orders:COMP METABOLIC PANEL [CPT-18912] CBC W/DIFF [CPT-83417] LIPID PANEL [CPT-78744] Vitamin D 250H Unspecified [CPT-28807] Adult - Ofc Vst, EST, Level IV [CPT-42856] Follow-Up Return to clinic: 3 months for follow up Clinical Visit Summary CompletedMedications:VITAMIN D3 76240 UNIT ORAL TABLET (CHOLECALCIFEROL) 1 po q wk for 12 wks, then change to 1000 unit tablet daily thereafter #12[Tablet] x 0 Route:ORAL Entered and Authorized by: Syeda PATE Method used: Electronically to [id number]* (retail) [address] [facility] [address] [place] [address] Note to Pharmacy: Route: ORAL; Indications: VITAMIN D DEFICIENCY RxID: [id number] 20 MG ORAL TABLET (FAMOTIDINE) take one tablet by mouth twice daily #60[Tablet] x 2 Route:ORAL Entered and Authorized by: Syeda PATE Method used: Electronically to [id number]* (retail) [id number] [facility] [address] [place] [address] Fax: Note to Pharmacy: Route: ORAL; Indications: GASTRO-ESOPHAGEAL REFLUX DISEASE WITHOUT ESOPHAGITIS RxID: [id number] signed by Syeda PATE on 02/24/2020 at 10:23 PM Name Value Range Interpretation Code Description Data Cindy rce(s) Supporting Document(s) ID Date Data Source [id number] 02/14/2020 11:03:32 AM EDT [facility] Labs In-House Blood TestsDate/Time Colle cted: February 14, 2020 11:03 AMTest Result Reference Range Normal ValueComments: blood draw done in office, taken from left ac, tolerated well.Tasha Catrachita, February 14, 2020 11:04 AMAssessment & Plan Orders:[id number] Vst-Est Level I [CPT-03648] 61089 - Venipuncture [CPT-73319] Name Value Range Interpretation Code Description Data Cindy rce(s) Supporting Document(s) ID Date Data Source [id number] 02/14/2020 10:50:00 AM EDT [facility] Name Value Range Interpretation Code Description Data Cindy rce(s) Supporting Document(s) VIT D25 TOT 16.8 ng/mL 30.0-100.0 L [facility] Fa sh[facility] BG FASTING 90 mg/dL 70-100 N [facility] T4, FREE 0.97 ng/dL 0.76-1.46 N [facility] TSH 1.410 microintl units/mL 0.358-3.740 N [facility] ID Date Data Source [id number] 02/14/2020 10:50:00 AM EDT [facility] Name Value Range Interpretation Code Description Data Cindy rce(s) Supporting Document(s) APPEARANCE U CLEAR CLEAR N [facility] Fam marcos [facility] SPEC GR URIN 1.016 1.002-1.035 N [facility] F amily [facility] UA COLOR YELLOW YELLOW N [facility] Family [facility] ID Date Data Source [id number] 02/14/2020 10:50:00 AM EDT [facility] Name Value Range Interpretation Code Description Data Cindy rce(s) Supporting Document(s) HCT 40.2 % 36.0-47.0 N [facility] Family [facility] HGB 12.2 g/dL 12.0-15.5 N [facility] MCH 30.3 G/DL pg 32.0-36.5 L [facility] Health MCHC 25.8 PG % 27.0-33.0 L [facility] PLATELETS 279 10 10*3/mm3 150-450 N [facility] RBC 4.73 10 10*6/mm3 4.00-5.40 N [facility] RDW 14.1 % 11.5-14.5 N [facility] WBC TOTAL 8.6 4.0-10.0 N [facility] ID Date Data Source [id number] 02/14/2020 10:50:00 AM EDT [facility] Name Value Range Interpretation Code Description Data Cindy rce(s) Supporting Document(s) HGBA1C 5.4 % N [facility] ID Date Data Source [id number] 01/21/2020 03:51:16 PM EDT [facility] Measurements & CalculationsHeight: 62 inches (5 ft. 2 in.) 157.48 cm Weight: 278 pounds 2 oz. 126.42 kg Body Mass Index (BMI): 51.05BMI Interpretation: Morbidly ObeseBody Surface Area (BSA): 2.20Weight Management Education Done (Nutrition/Physical Activity)Vital SignsTemperature: 98.1FPulse Rate: 92 beats/minuteRespiratory Rate: 14 respirations/minuteBlood Pressure: 134/95 O2 Saturation: 94% Vital Signs performed by: Dulce Maria Navarro LPN, January 21, 2020 3:51 PMVital Signs performed by: Dulce Maria Navarro LPN, January 21, 2020 3:51 PMInitial Intake Information from: patientRoom #: 14Smoking, Tobacco, Vaping or Smoke Exposure StatusSmoke Status: never smokerTobacco Use: NoDo you vape? NoPassive Smoke Exposure: NoMenstrual HistoryAny possibility of ? NoComments: IUDHealthcare HistorySince your last office visit...Have you been admitted to the hospital? NoHave you been to an emergency room (ER) or urgent care clinic? NoHave you seen another healthcare provider? NoHave you seen a dentist? NoRate Your HealthIn general, would you say your health is? GoodPain AssessmentAre you currently having any pain which... You would like your provider to address? No Affects your activity level? NoDepression Screening - PHQ-2Over the last two weeks, have you... Had little interest or pleasure in doing things? Not at all Been feeling down, depressed, or hopeless? Not at all PHQ-2 Score: 0Anxiety Screening - KEVIN-2Over the last two weeks, have you been... Feeling nervous, anxious, or on edge? Not at all Unable to stop or control worrying? Not at all KEVIN-2 Score: 0Food InsecurityWithin the past year...Did you worry whether your food would run out before you got money to buy more? NoWas there a time when the food you bought didn't last and you didn't have money to get more? NoInfectious Disease / Travel ScreeningRecent travel for you or any close contacts? NoHave you had any close contact with anyone diagnosed with or under investigation for COVID-19 (coronavirus)? NoHave you had any of the following symptoms recently? Fever? NoRespiratory symptoms: cough, cold, congestion, shortness of breath, difficulty breathing? NoPRAPARE Sociodemographic Characteristics Race: White Ethnicity: Not or Preferred Language: EnglishFamily and Home Address: [address] [place] [address] What is your housing situation today? I have housing Are you worried about losing your housing? NoMoney and Resources In the past year, have you or any family members you live with been unable to get any of the following when it was really needed? Denies Insecurity: food, utilities, clothing, childcare center director, phone, legal services, otherWithin the past year did you worry whether your food would run out before you got money to buy more? NoWithin the past year was there a time when the food you bought didn't last and you didn't have money to get more? NoSocial and Emotional Health How often do you see or talk to people that you care about and feel close to? More than 5 times a week How stressed are you? Not at allAdditional Optional Domains Do you feel physically and emotionally safe where you live? Yes In the past year, have you been afraid of a partner, ex-partner? NoScreening, Brief Intervention, & Referral to Treatment (SBIRT)Pre-Screening Questions How many times have you have 4 or more drinks in a day? 0How many times have you used an illegal drug or used a prescription medication for a non-medical reason? 0Performed by: Dulce Maria Navarro LPN, January 21, 2020 4:02 PMPatient History Medical History:Surgical History:Family History:Social/Personal History:lives with her cat Chief ComplaintHere to Establish care room 14History of Present Illness (HPI)44 yo female here to establish care. Pt states was being seen at [facility] but was no longer happy with the care after her original provider left. Pt is requesting a referral to have her colonososcopy done. Pt states that her father from colon Cancer, Pt states DX of Anxiety sees Dr Gigi Melara in [place].Pt states seasonal allergies. Pt states diagnosis of learning disability. Pt's Zaina Ruelas is presnt at visit today. HPI performed by: Syeda PATE, January 21, 2020 4:17 PMProblem ReviewProblem List was reviewed and/or updated during this visit.Medication Reconciliation & ReviewMedication List was reviewed and/or updated during this visit, including review of any twyb-vgz-ixbhevu medications, herbal therapies, and/or supplements.Allergy ReviewAllergy List was reviewed and/or updated during this visit.Adult Preventive CareLabs/Meds/Other Counseling-Nutrition and Physical Activity:BMI Interpretation: Morbidly Obese (01/21/2020) Counseling: Done (01/21/2020) Physical Activity: Done (01/21/2020)Cancer Screening Pap Smear/HPV TestingReviewed: Today's Comments: has referral women to women Review of Systems General: Denies loss of appetite, chills, dizziness, fatigue, fever, continued fever, headache, feeling ill, sweats, night sweats, sleep disturbances, weight loss. Eyes: Denies blurring of vision, double vision, irritation, discharge, vision loss, eye pain, eye swelling, droopy eyelid, sensitivity to light, redness, itching. Ears/Nose/Throat: Denies earache, ear discharge, ringing in ears, decreased hearing, nasal congestion, nosebleeds, runny nose, sore throat, hoarseness, difficulty swallowing, dry mouth, tooth pain, bleeding gums, swollen glands. Cardiovascular: Denies chest pain, palpitations, feeling faint, trouble breathing w/exertion, SOB upon lying down, SOB at night, peripheral edema, elevated blood pressure, decreased heart rate. Respiratory: Denies cough, difficulty breathing, shortness of breath, excessive sputum, coughing up blood, wheezing, chest pain. Gastrointestinal: Denies nausea, vomiting, cramps, diarrhea, constipation. Genitourinary: Denies urinary incontinence, pain with urination, burning with urination, urinary frequency, urinary hesitancy, urinary urgency, urinary urgency at night, incomplete emptying, blood in urine. Musculoskeletal: Denies back pain, joint pain, leg pain, joint swelling, body aches, muscle aches, muscle cramps, muscle weakness, stiffness, recent injury. Skin: Denies rash, hives, redness, itching, dryness, nail changes, suspicious lesions, athlete's foot, rash on palms, rash on bottom of feet. Neurologic: Denies muscle impairment, weakness, numbness/tingling, seizures, slurred speech, feeling faint, tremors, vertigo, paralysis on one side, paralysis on both sides. Psychiatric: Complains of anxiety. Denies depression, memory loss, mental disturbance, suicidal ideation, homicidal ideation, hallucinations, paranoia, feeling stressed, hearing voices. Endocrine: Denies cold intolerance, heat intolerance, excessive thirst, excessive hunger, excessive urination, weight loss, weight gain. Physical ExamGeneral Appearance: well nourished, well hydrated, no acute distressEyes, External: conjunctivae and lids normal, EOMIRespiratory, Auscultation: clear to auscultation bilaterally; no rales, rhonchi, or wheezesRespiratory, Effort: no intercostal retractions or use of accessory musclesCardiovascular, Auscultation: S1, S2 audible; no murmur, rub, or gallop; RRRPeripheral Circulation: no clubbing, cyanosis, edema, or varicositiesAbdomen: soft, non-tender, no masses, bowel sounds normalGait & Station: normalSkin, Inspection: no rashes, lesions, or ulcerationsOrientation: oriented to time, place, and personMood & Affect: no depression, anxiety, or agitationJudgment & Insight: intactRate Your HealthIn general, would you say your health is? GoodAssessment & Plan Problems:Added: Morbid obesity (ICD- 278.01) (BSP01-K42.01) Assessment: Instructions: Please continue lifestyle changes to include healthy diet and pysical activities. Please try to limit sugars, carbohydrates and fats in your diet.Health Screening (ICD-V70.0) (ICD10- Z13.9) Assessment: Instructions: We have ordered fasting labs for you today. Please return prior to your next visit to have labs drawn. Please fast for 8-10 hours prior.Generalized anxiety disorder (ICD-300.02) (RML64-X44.1) Assessment: Instructions: Please continue medications as prescribed. Please continue to monitor report and avoid triggers causing increase anxiety . Please continue to follow with your specialist.Other seasonal allergic rhinitis (ICD10- J30.2) Assessment: Instructions: Please continue medications as prescribed. Please try to avoid triggers.Encounter for screening for malignant neoplasm of colon (ICD-V76.51) (FFW18-K07.11) Assessment: Instructions: Wwe have made a referral for you today. We will contact you to set this upElevated blood- pressure reading, without diagnosis of hypertension (ICD-796.2) (RTP12-T46.0) Assessment: Instructions: Your Blood pressure is elevated today. Please start lifestyle chnages to include healthy diet and physical activities.Please try to avoid aded sodium in your diet.Please try to limit caffeine intake. Please try to avoid processed foods.Please try to maintain adequate intake of water daily.Patient Instructions/Care Plan: Morbid obesity: Please continue lifestyle changes to include healthy diet and pysical activities. Please try to limit sugars, carbohydrates and fats in your diet.Health Screening: We have ordered fasting labs for you today. Please return prior to your next visit to have labs drawn. Please fast for 8-10 hours prior.Generalized anxiety disorder: Please continue medications as prescribed. Please continue to monitor report and avoid triggers causing increase anxiety . Please continue to follow with your specialist.Other seasonal allergic rhinitis: Please continue medications as prescribed. Please try to avoid triggers.Encounter for screening for malignant neoplasm of colon: Wwe have made a referral for you today. We will contact you to set this upElevated blood-pressure reading- without diagnosis of hypertension: Your Blood pressure is elevated today. Please start lifestyle chnages to include healthy diet and physical activities.Please try to avoid aded sodium in your diet.Please try to limit caffeine intake. Please try to avoid processed foods.Please try to maintain adequate intake of water daily. Plan developed in collaboration with patient and/or familyMedications:FLONASEZYTECBUPROPION XL 150MGMedication Changes:Added: * BUPROPION XL 150MG-one tab daily in morning* ZYTEC-once daily* FLONASE-2 sprays dailyAllergies:* SEASONAL (Moderate)Orders:COMP METABOLIC PANEL [CPT-28674] CBC W/DIFF [CPT-09720] HgBA1c [CPT-53416] LIPID PANEL [CPT-16602] TSH [CPT-41630] T- 4 free [CPT-65943] Vitamin D 250H Unspecified [CPT-88525] URINALYSIS [CPT-29768] Gastroenterology Consult [CPT-93345] Adult - Ofc Vst, NEW, Level III [CPT-00107] Follow-Up Return to clinic: 3-4 weeks for follow up Clinical Visit Summary CompletedVaccines Administered/Entered:Vaccination Group: InfluenzaSeries: 1 NOT GIVENVaccination: Flucelvax Quadrivalent PF (4y+) AdultReason Not Given: Patient decisionEntered Date: 01/21/2020 12:00 AMComments: refusedEntered by: Dulce Maria Navarro LPN Name Value Range Interpretation Code Description Data Cindy rce(s) Supporting Document(s) Procedure Social History Code Duration Value Status Description Data Source(s ) Smoking 09/19/2020 12:00:00 AM EST Non Smoker completed Non Smoke r [facility] ([facility]) Smoking 11/12/2019 12:00:00 AM EST Never Smoker completed Never S moker eCW1 ([facility]) Vital Signs ID Date Data Source UNK Name Value Range Interpretation Code Description Data Source(s) Body surface area Derived from formula 2.25 m2 2.25 m2 [facility] ([facility]) Body weight 124.740 kg 124.740 kg [facility] ([facility]) Mims body weight 120 [lb_av] 120 [lb_av] [facility] T ([facility]) Body mass index (BMI) [Ratio] 46.5 kg/m2 46.5 k g/m2 [facility] ([facility]) Body weight 275.00 [lb_av] 275.00 [lb_av] [facility] T ([facility]) Body height 64.5 [in_i] 64.5 [in_i] [facility] ([facility]) 5'4.50" Body temperature 96.9 [degF] 96.9 [degF] [facility] ([facility]) Body surface area Derived from formula 2.21 m2 2.21 m2 [facility] ([facility]) Body weight 127.150 kg 127.150 kg [facility] ([facility]) Mims body weight 110 [lb_av] 110 [lb_av] [facility] T ([facility]) Body mass index (BMI) [Ratio] 51.3 kg/m2 51.3 k g/m2 [facility] ([facility]) Body weight 280.31 [lb_av] 280.31 [lb_av] [facility] T ([facility]) Body height 62 [in_i] 62 [in_i] [facility] ([facility]) 5'2" Body temperature 98.1 [degF] 98.1 [degF] [facility] ([facility]) Oxygen saturation in Arterial blood by Pulse oximetry 98 % 98 % [facility] ([facility]) Heart rate 72 /min 72 /min [facility] ([facility]) Diastolic blood pressure 86 mm[Hg] 86 mm[Hg] [facility] ([facility]) Systolic blood pressure 142 mm[Hg] 142 mm[Hg] [facility] Body weight 124.740 kg 124.740 kg [facility] ([facility]) Mims body weight 110 [lb_av] 110 [lb_av] [facility] T ([facility]) Body mass index (BMI) [Ratio] 50.3 kg/m2 50.3 k g/m2 [facility] ([facility]) Body weight 275.00 [lb_av] 275.00 [lb_av] [facility] T ([facility]) Body height 62 [in_i] 62 [in_i] [facility] 5'2" Body temperature 97.8 [degF] 97.8 [degF] [facility] ([facility]) Body weight 125.364 kg 125.364 kg [facility] ([facility]) Mims body weight 110 [lb_av] 110 [lb_av] [facility] T ([facility]) Body mass index (BMI) [Ratio] 50.5 kg/m2 50.5 k g/m2 [facility] ([facility]) Body weight 276.38 [lb_av] 276.38 [lb_av] [facility] T ([facility]) Body height 62 [in_i] 62 [in_i] [facility] ([facility]) 5'2" Body temperature 97.9 [degF] 97.9 [degF] [facility] ([facility]) Oxygen saturation in Arterial blood by Pulse oximetry 97 % 97 % [facility] ([facility]) Heart rate 78 /min 78 /min [facility] ([facility]) Diastolic blood pressure 86 mm[Hg] 86 mm[Hg] MEDLOVE ([facility], ) Systolic blood pressure 128 mm[Hg] 128 mm[Hg] Marcio MONTALVO ([facility], ) Body mass index (BMI) [Ratio] 49.49 kg/m2 49.49 kg/m2 eCW1 ([facility]) Body height 62 [in_us] 62 [in_us] eCW1 ([facility]) Body weight Measured 270.6 [lb_av] 270.6 [lb_av ] eCW1 ([facility]) Body mass index (BMI) [Ratio] 49.49 kg/m2 49.49 kg/m2 eCW1 ([facility]) Body height 62 [in_us] 62 [in_us] eCW1 ([facility]) Body weight Measured 270.6 [lb_av] 270.6 [lb_av ] eCW1 ([facility]) Body mass index (BMI) [Ratio] 50.48 kg/m2 50.48 kg/m2 eCW1 ([facility]) Body height 62 [in_us] 62 [in_us] eCW1 ([facility]) Body weight Measured 276 [lb_av] 276 [lb_av] eC W1 ([facility]) Diastolic blood pressure 78 mm[Hg] 78 mm[Hg] eCW1 ([facility]) Systolic blood pressure 126 mm[Hg] 126 mm[Hg] e CW1 ([facility]) Body temperature 98.0 [degF] 98.0 [degF] eCW1 ( [facility]) Respiratory rate 18 /min 18 /min eCW1 ([facility]) Heart rate 100 /min 100 /min eCW1 ([facility]) Body mass index (BMI) [Ratio] 50.48 kg/m2 50.48 kg/m2 W1 ([facility]) Body height 62 [in_us] 62 [in_us] eCW1 ([facility]) Body weight Measured 276 [lb_av] 276 [lb_av] eC W1 ([facility]) Diastolic blood pressure 76 mm[Hg] 76 mm[Hg] eCW1 ([facility]) Systolic blood pressure 128 mm[Hg] 128 mm[Hg] e CW1 ([facility]) Body temperature 98.2 [degF] 98.2 [degF] eCW1 ( [facility]) Respiratory rate 18 /min 18 /min eCW1 ([facility]) Heart rate 98 /min 98 /min eCW1 ([facility]) Body mass index (BMI) [Ratio] 49.74 kg/m2 49.74 kg/m2 eCW1 ([facility]) Body height 62 [in_us] 62 [in_us] eCW1 ([facility]) Body weight Measured 272.0 [lb_av] 272.0 [lb_av ] eCW1 ([facility]) Patient Treatment Plan of Care Planned Activity Planned Date Details Description Data Source (s) 24 HR Bupropion Hydrochloride 150 MG Extended Release Oral Tablet [Wellbutrin] 11/12/2019 12:00:00 AM EST eCW1 ([facility]) 24 HR Bupropion Hydrochloride 150 MG Extended Release Oral Tablet [Wellbutrin] 11/12/2019 12:00:00 AM EST eCW1 ([facility])
--- OUTSIDE RECORDS SUMMARY | 2020-12-04 13:29 | CCD | Continuity of Care Document ---
Author Author Yoana DIXON [facility] Organization Unknown Address [address] [place] [address] Phone [phone] Care Team Providers Care Signal Integrity Engineer Name Role Phone Syeda Matthews HERLINDA AUTM [phone] Mann Nuñez PA-C AUTM [phone] Problems Description No Information Available Social History Type Date Description Comments Sex Unknown ETOH Use Rarely consumes alcohol Tobacco Use Start: Unknown Denies Smoking Allergies, Adverse Reactions, Alerts Description No Known Drug Allergies Medications Active Medications SIG Qnty Indications Ordering Provide r Date Mobic 15mg Tablets 1 by mouth daily with food or milk 30tabs M51.37 Brendan Howard MD 11/22/2018 Tizanidine HCL 4mg Capsules 1 by mouth three times a day Unknown Gabapentin 300mg Capsules 1 tab po qhs for one week, then one tab po bid for one week then one tab po tid Unknown Tramadol HCL 50mg Tablets 1 every 4-6 hours as needed pain Unknown Immunizations Description No Information Available Vital Signs Date Vital Result Comment 11/22/2018 12:30pm Body Temperature 98.7 F Height 63.25 inches 5'3.25" Weight 275.00 lb BMI (Body Mass Index) 48.3 kg/m2 06/16/2018 8:55am Height 62 inches 5'2" Weight 260.00 lb BMI (Body Mass Index) 47.5 kg/m2 Results Description No Information Available Procedures Date Code Description Status 09/29/2020 86272 Therapeutic Procedure, Each 15 M inutes Completed 09/22/2020 07262 Physical Therapy Eval - Low Comp lexity Completed Medical Devices Description No Information Available Encounters Description No Information Available Assessments Date Code Description Provider 09/29/2020 M25.562 Pain in left knee Anna Marie hester PTA 09/22/2020 M25.561 Pain in right knee Medardo calzada, PT, DPT 09/22/2020 M25.562 Pain in left knee Medardo Ocampo , PT, DPT Plan of Treatment Future Appointment(s):* 10/06/2020 1:00 pm - Anna Marie Dixon PTA at Physical Therapy Referral Functional Status Description No Information Available Mental Status Description No Information Available Referrals Refer to Dr Reason for Referral Status Appt Date Anna Marie Dixon PTA no authorization required fo r physical therapy - based on medical necessity. nlg Created [address] [phone]
--- OUTSIDE RECORDS SUMMARY | 2020-12-04 13:29 | CCD | Continuity of Care Document ---
Author Author Yoana MARSH DPT Organization Unknown Address [address] [place] [address] Phone [phone] Care Team Providers Care Filter Press Tender Name Role Phone Syeda Matthews HERLINDA AUTM Mann Nuñez PA-C AUTM [phone] Problems Description No Information Available Social History [...] Information Available Procedures Date Code Description Status 09/22/2020 10656 Physical Therapy Eval - Low Comp lexity Completed Medical Devices Description No Information Available Encounters Description No Information Available Assessments Date Code Description Provider 09/22/2020 M25.561 Pain in right knee Medardo calzada, PT, DPT 09/22/2020 M25.562 Pain in left knee Medardo Marsh , PT, DPT Plan of Treatment Future Appointment(s):* 09/29/2020 1:00 pm - Anna Marie Farley PTA at Physical Therapy Referral Functional Status Description No Information Available Mental Status Description No Information Available Referrals Description No Information Available
--- OUTSIDE RECORDS SUMMARY | 2020-12-04 13:29 | CCD | Continuity of Care Document ---
Author Author Yoana WILL MD Organization Unknown Address [address] [place] [address] Phone [phone] Care Team Providers Care Applications Support Engineer Name Role Phone Syeda Matthews AUTM AUTM Unavailable Mann Nuñez PA-C AUTM [phone] Problems Active Problems Provider Date Obstructive sleep apnea syndrome SHANNON Jean Onset: 09/19/2020 Social History Type Date Description Comments Sex Unknown ETOH Use 2 A Day Tobacco Use Start: Unknown Non Smoker Smoking Status Reviewed: 09/19/20 Non Smoker Allergies, Adverse Reactions, Alerts Description No Known Drug Allergies Medications Active Medications SIG Qnty Indications Ordering Provide r Date CPAP Device 5cm tony Ames D.O. 10/16/2020 Naltrexone HCL 50mg Tablets 1 by mouth every day prn Unknown Bupropion HCL 75mg Tablets Da marcos Unknown Fiber Adult Gummies 2gm Chewtabs Daily Unknown Multivitamin Adult Chewtabs Daily Unknown Hair Skin & Nails Gummies 1250-7.5-7.5mcg-mg-Unt Chewtabs Daily Unknown Pantoprazole Sodium 20mg Tablets DR Unknown Zyrtec Allergy 10mg Capsules Unknown Flonase Allergy Relief 50mcg/Act Suspension 2 sprays each nostril daily Unknown Ventolin HFA 108(90Base) mcg/Act A erosol 2 puffs qid/prn Unknown Mobic 15mg Tablets Unknown Immunizations Description No Information Available Vital Signs Date Vital Result Comment 10/27/2020 10:37am Body Temperature 96.9 F Height 64.5 inches 5'4.50" Weight 275.00 lb BMI (Body Mass Index) 46.5 kg/m2 [place] Body Weight 120 lb Weight 124.740 kg BSA (Body Surface Area) 2.25 m2 09/19/2020 10:03am BP Systolic 142 mmHg BP Diastolic 86 mmHg Heart Rate 72 /min O2 % BldC Oximetry 98 % Body Temperature 98.1 F Height 62 inches 5'2" Weight 280.31 lb BMI (Body Mass Index) 51.3 kg/m2 [place] Body Weight 110 lb Weight 127.150 kg BSA (Body Surface Area) 2.21 m2 Results Description No Information Available Procedures Description No Information Available Medical Devices Description No Information Available Encounters Type Date Location Provider Dx Diagnosis Office Visit 09/19/2020 10:00a [facility] Pulmonary/Thoracic SHANNON Jean G47.33 Obstructive sleep apnea (adult) (pediatr ic) Office Visit 08/19/2020 1:10p [facility] Orthopedics Gelacio Will MD M17.12 Unilateral primary osteoarthritis, left knee M25.562 Pain in left knee Assessments Date Code Description Provider 10/27/2020 M17.0 Bilateral primary osteoarthritis of knee Gelacio Will MD 09/19/2020 G47.33 Obstructive sleep apnea (adult) (pediatric) SHANNON Jean 08/19/2020 M17.12 Unilateral primary osteoarthriti s, left knee Gelacio Will MD 08/19/2020 M25.562 Pain in left knee Gelacio Will MD Plan of Treatment Future Appointment(s):* 11/25/2020 2:00 pm - SHANNON Jean at [facility] Pulmonary/Thoracic 10/27/2020 - Gelacio Will MD* M17.0 Bilateral primary osteoarthritis of knee Functional Status Functional Condition Comment Date Status Independent with all ADL's Activ e Mental Status Mental Condition Comment Date Status None Active Referrals Description No Information Available
--- OUTSIDE RECORDS SUMMARY | 2020-12-04 13:29 | CCD | Continuity of Care Document ---
Author Author Yoana MARSH DPT Organization Unknown Address [address] [place] [address] Phone [phone] Care Team Providers Care Crime Specialist Name Role Phone Syeda Matthews HERLINDA AUTM [phone] Mann Nuñez PA-C AUTM [phone] Problems Description No Information Available Social History [...] Information Available Procedures Date Code Description Status 11/17/2020 47343 Physical Therapy Eval - Low Comp lexity Completed 09/29/2020 57116 Therapeutic Procedure, Each 15 M inutes Completed 09/22/2020 13590 Physical Therapy Eval - Low Comp lexity Completed Medical Devices Description No Information Available Encounters Description No Information Available Assessments Date Code Description Provider 11/17/2020 M25.562 Pain in left knee Medardo Aj Terrence , PT, DPT 09/29/2020 M25.562 Pain in left knee Anna Marie Orto lano, STICK INSERTER 09/22/2020 M25.561 Pain in right knee Medardo Aj Tamar calzada, PT, DPT 09/22/2020 M25.562 Pain in left knee Medardo Aj Terrence , PT, DPT Plan of Treatment Future Appointment(s):* 11/27/2020 11:00 am - Anna Marie WeinerlanROSEMARIE aguillon at Physical Therapy Referral * 11/25/2020 11:00 am - Anna Marie WeinerlanROSEMARIE aguillon at Physical Therapy Referral Functional Status Description No Information Available Mental Status Description No Information Available Referrals Refer to Dr Reason for Referral Status Appt Date Sriram Ravi PA PT BASED ON MED. [facility] TO PT DEPT. NT Creat ed [address] [place] [address] [phone] Ortolano, Sunilamarie, STICK INSERTER no authorization required fo r physical therapy - based on medical necessity. nlg Created [facility] [address] [phone]
--- OUTSIDE RECORDS SUMMARY | 2020-12-04 13:29 | CCD | Continuity of Care Document ---
Author Author Yoana MARSH DPT Organization Unknown Address [address] [place] [address] Phone [phone] Care Team Providers Care Fruit Checker Name Role Phone Syeda Matthews HERLINDA AUTM [phone] Mann Nuñez PA-C AUTM [phone] Problems Description No Information Available Social History [...] Available Procedures Date Code Description Status 09/29/2020 33389 Therapeutic Procedure, Each 15 M inutes Completed 09/22/2020 16337 Physical Therapy Eval - Low Comp lexity Completed Medical Devices Description No Information Available Encounters Description No Information Available Assessments Date Code Description Provider 11/17/2020 M25.562 Pain in left knee Medardo BuckleyPrincess Marsh , PT, DPT 09/29/2020 M25.562 Pain in left knee Anna Marie Orto lano, PERSONAL DEVELOPMENT COACH 09/22/2020 M25.561 Pain in right knee Medardo M. Tamar n, PT, DPT 09/22/2020 M25.562 Pain in left knee Medardo Aj Terrence , PT, DPT Plan of Treatment Future Appointment(s):* 11/27/2020 11:00 am - Anna Marie Farley PTA at Physical Therapy Referral * 11/25/2020 11:00 am - Anna Marie Farley PTA at Physical Therapy Referral Functional Status Description No Information Available Mental Status Description No Information Available Referrals Refer to Dr Reason for Referral Status Appt Date Sriram Ravi PA PT BASED ON MED. [facility] TO PT DEPT. NT Creat ed [address] [place] [address] [phone] Orino, Piarie, PERSONAL DEVELOPMENT COACH no authorization required fo r physical therapy - based on medical necessity. nlg Created [address] [place] [phone]
--- OUTSIDE RECORDS SUMMARY | 2020-12-04 13:29 | CCD | Continuity of Care Document ---
Author Author Yoana DIXON [facility] Organization Unknown Address [address] [place] [address] Phone [phone] Care Team Providers Care Making Department Preparer Name Role Phone Syeda Matthews HERLINDA AUTM [phone] Mann Nuñez PA-C AUTM [phone] Problems Description No Information Available Social History [...] Available Procedures Date Code Description Status 11/17/2020 43317 Physical Therapy Eval - Low Comp lexity Completed 09/29/2020 91348 Therapeutic Procedure, Each 15 M inutes Completed 09/22/2020 77565 Physical Therapy Eval - Low Comp lexity Completed Medical Devices Description No Information Available Encounters Description No Information Available Assessments Date Code Description Provider 11/17/2020 M25.562 Pain in left knee Medardo Ocampo , PT, DPT 09/29/2020 M25.562 Pain in left knee Anna Marie hester, AUTOMOBILE RELOCATION ENGINEER 09/22/2020 M25.561 Pain in right knee Medardo Madai Tamar calzada, PT, DPT 09/22/2020 M25.562 Pain in left knee Medardo Aj Terrence , PT, DPT Plan of Treatment Future Appointment(s):* 12/04/2020 11:30 am - Medardo Ocampo, PT, DPT at Physical Therapy Referral * 12/02/2020 11:30 am - Anna Marie Dixon PTA at Physical Therapy Referral * 11/27/2020 11:00 am - Anna Marie Dixon PTA at Physical Therapy Referral Functional Status Description No Information Available Mental Status Description No Information Available Referrals Refer to Dr Reason for Referral Status Appt Date Sriram Ravi PA PT BASED ON MED. [facility] TO PT DEPT. NT Creat ed [facility] [address] [place] [address] [phone] Anna Marie Dixon, ROSEMARIE no authorization required fo r physical therapy - based on medical necessity. nlg Created [address] [phone] [phone]
[2020-12-04] MEDS ORDERED: GI COCKTAIL 50ML BTL(HYOSCYAMINE/MAALOX/LIDOCAINE VISCOUS)(1:3:1) PO ONE (13:45)
--- NOTE | 2020-12-04 13:56 | REP ---
INDICATION: central chest. Painful swallowing. COMPARISON: Comparison chest x-ray July 12, 2019. TECHNIQUE: Two views.. FINDINGS: The lungs are well inflated and free of infiltrate. The pleural angles are sharp. The heart size is normal. Pulmonary vasculature is not increased. No significant bony abnormality is seen. IMPRESSION: Negative chest x-ray. <Electronically signed by Roly Caberra > 12/04/20 6613
[2020-12-04 14:21] VITALS: BP 161/90
--- NOTE | 2020-12-05 08:16 | ECGEPIP ---
[facility] - ED Test Date: 2020-12-04 Pat Name: ELIZABETH SANTOS Department: Room: - Gender: Female Netting Inspector: : 1975 Requested By: MASSIEL SOTO PA-C. Order Number: [id number] Reading MD: Elena Del Toro Measurements Intervals [place] Rate: 77 P: 40 PA: 166 QRS: 46 QRSD: 84 T: 24 QT: 374 QTc: 423 Interpretive Statements Normal sinus rhythm NSTTW abnormalities similar 10/31/18 Electronically Signed on 12-05-2020 8:16:30 EST by Elena Del Toro
== END 2020-12-04 14:22 | disposition home or self-care (01) ==
LOC: EDBD 12:57 → M ED 12:57
DX: R13.10 Dysphagia, unspecified (principal); Z79.899 Other long term (current) drug therapy; Z97.5 Presence of (intrauterine) contraceptive device

== ENCOUNTER → 2021-01-14 | Outpatient (REF) | payer MEDICARE, MEDICAID ==
[2021-01-14 14:06] LABS: BASO # 0.1 10^3/uL (0.0-0.2); BASO % 0.5 % (0.0-1.0); EOS # 0.2 10^3/uL (0.0-0.5); EOS % 1.9 % (0.0-3.0); HEMATOCRIT 41.2 % (36.0-47.0); HEMOGLOBIN 12.6 g/dl (12.0-15.5); LYMPH # 2.9 10^3/uL (1.5-5.0); LYMPH % 27.4 % (24.0-44.0); MEAN CORPUSCULAR HEMOGLOBIN 25.7 pg (27.0-33.0); MEAN CORPUSCULAR HGB CONC 30.6 g/dl (32.0-36.5); MEAN CORPUSCULAR VOLUME 84.1 fl (80.0-96.0); MONO # 0.7 10^3/uL (0.0-0.8); MONO % 6.7 % (2.0-8.0); NEUTROPHILS # 6.6 10^3/uL (1.5-8.5); NEUTROPHILS % 63.2 % (36.0-66.0); PLATELET COUNT, AUTOMATED 298 10^3/uL (150-450); WHITE BLOOD COUNT 10.5 10^3/uL (4.0-10.0)
[2021-01-14 14:12] LABS: ALBUMIN 3.4 GM/DL (3.2-5.2); ALT/SGPT 23 U/L (12-78); BILIRUBIN,TOTAL 0.2 MG/DL (0.2-1.0); BLOOD UREA NITROGEN 16 MG/DL (7-18); CALCIUM LEVEL 9.8 MG/DL (8.5-10.1); CARBON DIOXIDE LEVEL 28 MEQ/L (21-32); CHLORIDE LEVEL 104 MEQ/L (98-107); CHOLESTEROL LEVEL 222 MG/DL (<200); CHOLESTEROL RISK RATIO 4.625 (<5); FREE T4 0.94 NG/DL (0.76-1.46); GLOMERULAR FILTRATION RATE > 60.0 (>58); GLUCOSE, FASTING 86 MG/DL (70-100); HDL CHOLESTEROL 48 MG/DL (>40); LDL CHOLESTEROL 147 MG/DL (<100); NON-HDL-C 174 MG/DL; POTASSIUM SERUM 4.5 MEQ/L (3.5-5.1); SODIUM LEVEL 138 MEQ/L (136-145); TOTAL PROTEIN 7.7 GM/DL (6.4-8.2); TRIGLYCERIDES LEVEL 136 MG/DL (<150)
[2021-01-14 14:23] LABS: HEMOGLOBIN A1c 5.4 %
[2021-01-14 15:41] LABS: TOTAL 25(OH) VITAMIN D 15.7 NG/ML (30.0-100.0)
== END ==
LOC: M LAB REF 12:32
PROVIDERS: ATTEND Nurse Practitioner Family
DX: E66.01 Morbid (severe) obesity due to excess calories (principal); E78.5 Hyperlipidemia, unspecified; E55.9 Vitamin D deficiency, unspecified

== ENCOUNTER → 2021-03-13 | Outpatient (CLI) | payer MEDICARE, MEDICAID ==
--- NOTE | 2021-03-13 17:58 | REPVR ---
PROCEDURE INFORMATION: Exam: CT Maxillofacial Without Contrast, Sinus Exam date and time: 03/13/2021 5:25 PM Age: 45 years old Clinical indication: Sinusitis; Chronic; Additional info: Max sinusitis, chronic rhinosinusitis TECHNIQUE: Imaging protocol: CT Maxillofacial without contrast. Focus on the sinuses. Radiation optimization: All CT scans at this facility use at least one of these dose optimization techniques: automated exposure control; mA and/or kV adjustment per patient size (includes targeted exams where dose is matched to clinical indication); or iterative reconstruction. COMPARISON: CT Head without contrast 11/11/2018 6:45 PM FINDINGS: Frontal sinuses: Normal. No air-fluid levels. Ethmoid air cells: Normal. No air-fluid levels. Sphenoid sinuses: Normal. No air-fluid levels. Maxillary sinuses: There is a 10 mm mucous retention cyst along the floor of the right maxillary sinus. An additional adjacent 5 mm mucous retention cyst is noted. There are no air-fluid levels. The left maxillary sinus is clear. The ostiomeatal units are patent. Nasal cavity/Septum: There is mild leftward bowing of the nasal septum. Orbital cavity: Orbits are normal. Globes are unremarkable. Bones/joints: Unremarkable. Soft tissues: Unremarkable. Dental: Extensive dental disease is present. IMPRESSION: 1. No acute abnormality. 2. Chronic findings as discussed above. Electronically signed by: Cuco Dietz On 03/13/2021 17:57:57 PM
== END ==
LOC: M RAD 17:02
PROVIDERS: ATTEND Otolaryngology
DX: J32.0 Chronic maxillary sinusitis (principal)

== ENCOUNTER → 2021-04-03 | Outpatient (CLI) | payer MEDICARE, MEDICAID ==
--- NOTE | 2021-04-03 15:07 | REP ---
INDICATION: PAIN. COMPARISON: None. TECHNIQUE: Standing bilateral AP view of the knees with this supine AP and standing lateral of the left knee FINDINGS: There is tricompartmental marginal osteophytosis with bicompartmental medial compartmental narrowing. There is some evidence of asymmetric patellofemoral joint space narrowing. IMPRESSION: Chronic changes as described above. <Electronically signed by Dallas Moreno > 04/03/21 0377
== END ==
LOC: M SOG 14:01
PROVIDERS: ATTEND Orthopaedic Surgery Adult Reconstructive Orthopaedic Surgery
DX: M25.762 Osteophyte, left knee (principal); M25.862 Other specified joint disorders, left knee

== ENCOUNTER → 2021-04-21 | Outpatient (CLI) | payer MEDICARE, MEDICAID ==
--- NOTE | 2021-04-21 15:22 | REP ---
INDICATION: LT KNEE INTERNAL DERANGEMENT / MENISCUS DERANG. COMPARISON: 09/04/2020. TECHNIQUE: Multiple sequences obtained in the axial, coronal and sagittal planes. FINDINGS: Menisci: There is a new tear of the posterior horn of the medial meniscus. The lateral meniscus is intact. Cruciate ligaments: Intact. Collateral ligaments: Intact. Extensor mechanism/patellar retinacula: Intact. Cartilage: There is moderately severe chondromalacia of the patella unchanged. There is moderately severe chondromalacia of the medial femoral condyle and tibial plateau unchanged, with moderate chondromalacia of the lateral femoral condyle and tibial plateau unchanged. Bone marrow: Normal signal, no edema or occult fracture. Mild to moderate diffuse spurring is unchanged. Joint fluid: There is moderate joint effusion unchanged. Popliteal region: No cyst. IMPRESSION: New tear posterior horn medial meniscus. There are other chronic changes which have remained stable. Moderate joint effusion unchanged. <Electronically signed by Jordin Roa > 04/21/21 0881
== END ==
LOC: M PLAIMG 14:22
PROVIDERS: ATTEND Orthopaedic Surgery Adult Reconstructive Orthopaedic Surgery
DX: S83.242A Other tear of medial meniscus, current injury, left knee, initial encounter (principal); M25.462 Effusion, left knee; M23.322 Other meniscus derangements, posterior horn of medial meniscus, left knee; X58.XXXA Exposure to other specified factors, initial encounter; Y92.9 Unspecified place or not applicable; Y99.9 Unspecified external cause status

== ENCOUNTER 2021-07-17 18:47 | Emergency (ER) | payer MEDICARE, MEDICAID ==
[~2021-07-17] VITALS: Ht 157.5 cm; Wt 123.0 kg
[2021-07-17] MEDS ORDERED: NORCO, ANEXSIA 5/325MG TABLET (HYDROcodone/ACETAMINOPHEN) PO ONE (19:55)
[2021-07-17 20:04] LABS: BASO % 0.4 % (0.0-1.0); EOS # 0.2 10^3/uL (0.0-0.5); EOS % 2.4 % (0.0-3.0); HEMATOCRIT 39.3 % (36.0-47.0); LYMPH # 2.8 10^3/uL (1.5-5.0); LYMPH % 27.9 % (24.0-44.0); MEAN CORPUSCULAR HEMOGLOBIN 25.5 pg (27.0-33.0); MEAN CORPUSCULAR HGB CONC 30.5 g/dl (32.0-36.5); MEAN CORPUSCULAR VOLUME 83.6 fl (80.0-96.0); MONO # 0.5 10^3/uL (0.0-0.8); NEUTROPHILS # 6.4 10^3/uL (1.5-8.5); NEUTROPHILS % 63.8 % (36.0-66.0); PLATELET COUNT, AUTOMATED 279 10^3/uL (150-450); WHITE BLOOD COUNT 10.1 10^3/uL (4.0-10.0)
--- NOTE | 2021-07-17 20:04 | REP ---
INDICATION: CHEST PAIN. COMPARISON: Comparison chest x-ray December 04, 2020. TECHNIQUE: Portable upright AP chest radiograph. FINDINGS: The lungs are well inflated and free of infiltrate. Pleural angles are sharp. Heart size is normal. Pulmonary vasculature is not increased. EKG monitoring electrodes overlie the chest. IMPRESSION: No active disease. <Electronically signed by Roly Cabrera > 07/17/211999
--- NOTE | 2021-07-17 20:08 | ECGEPIP ---
[facility] - ED Test Date: 2021-07-17 Pat Name: ELIZABETH SANTOS Department: Room: - Gender: Female Pai Gow Dealer: CHANDLER : 1975 Requested By: BRANDON Swan Order Number: [id number] Reading MD: Elena Del Toro Measurements Intervals [place] Rate: 72 P: 26 UT: 160 QRS: 36 QRSD: 88 T: 22 QT: 394 QTc: 431 Interpretive Statements Normal sinus rhythm NSTTW abnormalities similar 12/04/20 Electronically Signed on 07-17-2021 20:08:38 EDT by Elena Del Toro
[2021-07-17 20:41] LABS: ALT/SGPT 24 U/L (12-78); BILIRUBIN,DIRECT < 0.1 MG/DL (0.0-0.2); BILIRUBIN,TOTAL 0.2 MG/DL (0.2-1.0); BLOOD UREA NITROGEN 14 MG/DL (7-18); CALCIUM LEVEL 8.8 MG/DL (8.5-10.1); CARBON DIOXIDE LEVEL 26 MEQ/L (21-32); CHLORIDE LEVEL 107 MEQ/L (98-107); CK-MB VALUE MASS < 1.0 NG/ML (<3.6); CPK CREATINE PHOSPHOKINASE 86 U/L (26-192); CREATININE FOR GFR 0.92 MG/DL (0.55-1.30); GLOMERULAR FILTRATION RATE > 60.0 (>58); GLUCOSE, FASTING 88 MG/DL (70-100); LIPASE 83 U/L (73-393); MB/CK RELATIVE INDEX 1.16 (< OR =4); SODIUM LEVEL 141 MEQ/L (136-145); TOTAL PROTEIN 7.1 GM/DL (6.4-8.2); TROPONIN I < 0.02 NG/ML (< 0.10)
[2021-07-17 21:32] VITALS: BP 125/65
== END 2021-07-17 21:49 | disposition home or self-care (01) ==
LOC: M ED 18:47
DX: R07.89 Other chest pain (principal); D64.9 Anemia, unspecified; G89.29 Other chronic pain; Z79.899 Other long term (current) drug therapy; Z97.5 Presence of (intrauterine) contraceptive device

== ENCOUNTER → 2021-09-01 | Outpatient (REF) | payer MEDICARE, MEDICAID ==
[2021-09-01 13:31] LABS: RSV AMPLIFICATION NEGATIVE (NEGATIVE)
== END ==
LOC: M LAB REF 12:19
PROVIDERS: ATTEND Physician Assistant Medical
DX: Z11.52 Encounter for screening for COVID-19 (principal); B97.4 Respiratory syncytial virus as the cause of diseases classified elsewhere; J11.1 Influenza due to unidentified influenza virus with other respiratory manifestations

== ENCOUNTER 2021-09-05 11:36 | Emergency (ER) | payer MEDICARE, MEDICAID ==
[~2021-09-05] VITALS: Ht 157.5 cm; Wt 126.7 kg
--- OUTSIDE RECORDS SUMMARY | 2021-09-05 11:45 | CCD | Continuity of Care Document ---
Author Author Yoana GONZALES MD Organization Unknown Address [id number] [place] [address] , [place] [address] Phone [phone] Care Team Providers Care Grievance Coordinator Name Role Phone Syeda Matthews AUTM AUTM Unavailable AUTM Unavailable Seven Arambula M.D. AUTM Problems Active Problems Provider Date Obstructive sleep apnea syndrome SHANNON Jean Onset: 09/19/2020 Social History Type Date Description Comments Sex Unknown ETOH Use 2 A Day Tobacco Use Start: Unknown Non Smoker Recreational Drug Use Denies Drug Use Smoking Status Reviewed: 06/30/21 Non Smoker Allergies, Adverse Reactions, Alerts Active Allergies Criticality Reaction | Severity Comments Date NKDA Unable to assess criticality 03/01/2019 Environmental Unable to assess criticality 01/07/2021 Seasonal Unable to assess criticality 01/07/2021 Medications Active Medications SIG Qnty Indications Ordering Provide r Date Saline Nasal [place] 0.65% Solution 2 sprays to each nostril 2-3 times a day and as needed 264ml J31.0 To beena Swartz MD 03/27/2021 CPAP Device 5cm tony Ames D.O. 10/16/2020 Naltrexone HCL 50mg Tablets 1 by mouth every day prn Unknown Bupropion HCL 75mg Tablets Da marcos Unknown Fiber Adult Gummies 2gm Chewtabs Daily Unknown Multivitamin Adult Chewtabs Daily Unknown Hair Skin & Nails Gummies 1250-7.5-7.5mcg-mg-Unt Chewtabs Daily Unknown Pantoprazole Sodium 20mg Tablets D R tab by mouth every day 30tabs Unknown Zyrtec Allergy 10mg Capsules Unknown Flonase Allergy Relief 50mcg/Act Suspension 2 sprays each nostril daily Unknown Ventolin HFA 108(90Base) mcg/Act A erosol 2 puffs qid/prn Unknown Mobic 15mg Tablets Unknown Immunizations Description No Information Available Vital Signs Date Vital Result Comment 06/30/2021 12:47pm Body Temperature 96.9 F 04/29/2021 1:07pm Body Temperature 98.0 F Results Description No Information Available Procedures Date Code Description Status 06/30/2021 25775 Office/Outpatient Established Lo w MDM 20-29 Min Completed 04/29/2021 16784 Office/Outpatient Established Lo w MDM 20-29 Min Completed 04/15/2021 07116 Office/Outpatient Established Mo d MDM 30-39 Min Completed 04/15/2021 20501 Inject/Drain Arthrocentesis Madonna r Joint/Bursa/Ganglion Cyst Completed 04/03/2021 88902 Office/Outpatient New Moderate M DM 45-59 Minutes Completed 03/31/2021 85183 Office/Outpatient Established Lo w MDM 20-29 Min Completed 03/27/2021 02986 Office/Outpatient Established Lo w MDM 20-29 Min Completed 02/17/2021 77515 Office/Outpatient Established Mo d MDM 30-39 Min Completed 02/17/2021 85480 Inject/Drain Arthrocentesis Madonna r Joint/Bursa/Ganglion Cyst Completed 01/07/2021 94549 Office/Outpatient New Moderate M DM 45-59 Minutes Completed Medical Devices Description No Information Available Encounters Type Date Location Provider Dx Diagnosis Office Visit 06/30/2021 1:00p [facility] Jameson Gonzales MD S83.231D Complex tear of medial mensc, current injury, r knee, subs M94.20 Chondromalacia, unspecified site Office Visit 04/29/2021 1:30p [facility] Jameson Gonzales MD S83.231D Complex tear of medial mensc, current injury, r knee, subs Office Visit 04/15/2021 3:30p [facility] Jameson Gonzales MD M23.92 Unspecified internal derangement of left knee Office Visit 04/03/2021 2:00p [facility] Jameson Gonzales MD M23.92 Unspecified internal derangement of left knee Office Visit 03/31/2021 1:00p [facility] Gelacio Katz MD M23.322 Oth meniscus derang, post horn of medial meniscus, l knee M17.0 Bilateral primary osteoarthr itis of knee Office Visit 03/27/2021 11:00a [facility] Roland Swartz MD J31.0 Chronic rhinitis J32.0 Chronic maxillary sinusitis J34.2 Deviated nasal septum Office Visit 02/17/2021 11:30a [facility] Gelacio Katz MD M17.12 Unilateral primary osteoarthritis, left knee M23.322 Oth meniscus derang, post ho rn of medial meniscus, l knee Office Visit 01/07/2021 9:30a [facility] Roland Swartz MD J35.01 Chronic tonsillitis J31.0 Chronic rhinitis J32.0 Chronic maxillary sinusitis R43.8 Other disturbances of smell and taste Assessments Date Code Description Provider 06/30/2021 S83.231D Tear of medial meniscus of knee Jameson Gonzales MD 06/30/2021 M94.20 Chondromalacia Jameson Gonzales MD 04/29/2021 S83.231D Tear of medial meniscus of knee Jameson Gonzales MD 04/15/2021 M23.92 Internal derangement of left kne e Jameson Gonzales MD 04/03/2021 M23.92 Internal derangement of left kne e Jameson Gonzales MD 03/31/2021 M23.322 Other meniscus deran gements, posterior horn of medial meniscus, left knee Gelacio Katz MD 03/31/2021 M17.0 Bilateral primary osteoarthritis of knee Gelacio Katz MD 03/27/2021 J31.0 Chronic rhinitis Roland Swartz MD 03/27/2021 J32.0 Chronic maxillary sinusitis Roland Swartz MD 03/27/2021 J34.2 Deviated nasal septum Roland conteh MD 02/17/2021 M17.12 Unilateral primary osteoarthriti s, left knee Gelacio Katz MD 02/17/2021 M23.322 Other meniscus deran gements, posterior horn of medial meniscus, left knee Gelacio Katz MD 01/07/2021 J35.01 Chronic tonsillitis Roland Swartz MD 01/07/2021 J31.0 Chronic rhinitis Roland Swartz MD 01/07/2021 J32.0 Chronic maxillary sinusitis Roland Swartz MD 01/07/2021 R43.8 Other disturbances of smell and taste Roland Swartz MD Plan of Treatment Future Appointment(s):* 09/30/2021 10:00 am - Jameson Gonzales MD at [facility] 06/30/2021 - Jameson Gonzales MD* S83.231D Tear of medial meniscus of knee* Comments:* The patient is continuing with conservative treatment. This appears to be helping her symptoms progress. She does not have the same frequency of popping or snapping at this point. She did have a fall however she seems to be recovering from this without any long-term sequela. I will see her for follow-up in 3 months she will continue with her conservative physical therapy and other treatments. * Follow up:* 3-month * M94.20 Chondromalacia* Comments:* The patient is aware that she does have some chondromalacia and this will cause some aching type pains from time to time. Functional Status Functional Condition Comment Date Status Independent with all ADL's Activ e Mental Status Mental Condition Comment Date Status None Active Referrals Refer to Reason for Referral Status Appt Date Jameson Gonzales M.D. left knee OA Closed 04/03/2021 [facility] [address] , [place] [address] [phone]"
--- OUTSIDE RECORDS SUMMARY | 2021-09-05 11:45 | CCD | Continuity of Care Document ---
Author Author Yoana [facility]WELL [facility] Organization Unknown Address [address] [place] [address] Phone [phone] Care Team Providers Care Doctor Of Naprapathy Name Role Phone Syeda Matthews HERLINDA AUTM Mann Nuñez PA-C AUTM [phone] Problems Description No Information Available Social History [...] Information Available Procedures Date Code Description Status 06/24/2021 40848 Therapeutic Procedure, Each 15 M inutes Completed 06/10/2021 99486 Therapeutic Procedure, Each 15 M inutes Completed 06/10/2021 73310 Hot Or Cold Packs Completed 06/05/2021 98545 Therapeutic Procedure, Each 15 M inutes Completed 05/27/2021 98838 Therapeutic Procedure, Each 15 M inutes Completed 05/27/2021 90037 Hot Or Cold Packs Completed 05/20/2021 67558 Therapeutic Procedure, Each 15 M inutes Completed 05/13/2021 16552 Therapeutic Procedure, Each 15 M inutes Completed 04/29/2021 16956 Therapeutic Procedure, Each 15 M inutes Completed 04/22/2021 84130 Therapeutic Procedure, Each 15 M inutes Completed 04/15/2021 65444 Therapeutic Procedure, Each 15 M inutes Completed 04/15/2021 54486 Hot Or Cold Packs Completed 04/01/2021 11574 Therapeutic Procedure, Each 15 M inutes Completed 04/01/2021 86085 Hot Or Cold Packs Completed 03/23/2021 94228 Physical Therapy Eval - Low Comp lexity Completed Medical Devices Description No Information Available Encounters Description No Information Available Assessments Date Code Description Provider 06/24/2021 M17.12 Unilateral primary osteoarthriti s, left knee Robyn Sumaya Braswell, [employer] BLEACHER 06/24/2021 M23.322 Other meniscus deran gements, posterior horn of medial meniscus, left knee Robyn Sumaya Braswell, [employer] BLEACHER 06/10/2021 M17.12 Unilateral primary osteoarthriti s, left knee Medardo Madai Ocampo, PT, DPT 06/10/2021 M23.322 Other meniscus deran gements, posterior horn of medial meniscus, left knee Medardomegan Ocampo, PT, DPT 06/05/2021 M17.12 Unilateral primary osteoarthriti s, left knee Robyn Sumaya Braswell, [employer] BLEACHER 06/05/2021 M23.322 Other meniscus deran gements, posterior horn of medial meniscus, left knee Robyn Sumaya Braswell, [employer] BLEACHER 05/27/2021 M17.12 Unilateral primary osteoarthriti s, left knee Medardo M. Dinmegan, PT, DPT 05/27/2021 M23.322 Other meniscus deran gements, posterior horn of medial meniscus, left knee Medardo MarcioPrincess Dinmegan, PT, DPT 05/20/2021 M17.12 Unilateral primary osteoarthriti s, left knee Robynclara Braswell, [employer] BLEACHER 05/20/2021 M23.322 Other meniscus deran gements, posterior horn of medial meniscus, left knee Robyn Braswell, [employer] BLEACHER 05/13/2021 M17.12 Unilateral primary osteoarthriti s, left knee Robyn Braswell, [employer] BLEACHER 05/13/2021 M23.322 Other meniscus deran gements, posterior horn of medial meniscus, left knee Robyn Braswell, [employer] BLEACHER 04/29/2021 M17.12 Unilateral primary osteoarthriti s, left knee Robyn Braswell, [employer] BLEACHER 04/29/2021 M23.322 Other meniscus deran gements, posterior horn of medial meniscus, left knee Robyn Braswell, [employer] BLEACHER 04/22/2021 M17.12 Unilateral primary osteoarthriti s, left knee Robyn Braswell, [employer] BLEACHER 04/22/2021 M23.322 Other meniscus deran gements, posterior horn of medial meniscus, left knee Robyn Braswell, [employer] BLEACHER 04/15/2021 M17.12 Unilateral primary osteoarthriti s, left knee Medardo Ocampo, PT, DPT 04/15/2021 M23.322 Other meniscus deran gements, posterior horn of medial meniscus, left knee Medardo Ocampo, PT, DPT 04/01/2021 M17.12 Unilateral primary osteoarthriti s, left knee Robyn Braswell, BEESWA[employer] BLEACHER 04/01/2021 M23.322 Other meniscus deran gements, posterior horn of medial meniscus, left knee Robyn Braswell, [employer]WA[employer] BLEACHER 03/23/2021 M17.12 Unilateral primary osteoarthriti s, left knee Medardo Ocampo, PT, DPT 03/23/2021 M23.322 Other meniscus deran gements, posterior horn of medial meniscus, left knee Medardo Ocampo, PT, DPT Plan of Treatment Future Appointment(s):* 07/22/2021 3:30 pm - Medardo Ocampo, PT, DPT at Physical Therapy Referral Functional Status Description No Information Available Mental Status Description No Information Available Referrals Refer to Reason for Referral Status Appt Date Jordon Watkins MD Physical therapy right knee per medicare no auth req based on medical necessity patient [place] going [place] [facility] [place] passed to pt dept sw. Created [address] [facility], [address] [place] [address] [phone]
--- OUTSIDE RECORDS SUMMARY | 2021-09-05 11:45 | CCD | Continuity of Care Document ---
Author Author Yoana GONZALES MD Organization Unknown Address [address] [place] [address] , [place] [address] Phone [phone] Care Team Providers Care Leaf Blender Name Role Phone Syeda Matthews AUTM [phone] AUTM Unavailable AUTM Unavailable Seven Arambula M.D. AUTM [phone] Problems Active Problems Provider Date Obstructive sleep [...] Indications Ordering Provide r Date Saline Nasal [place] 0.65% Solution 2 sprays to each nostril [...] Available Procedures Date Code Description Status 06/30/2021 07057 Office/Outpatient Established SF MDM 10-19 Min Completed 04/29/2021 75567 Office/Outpatient Established Lo w MDM 20-29 Min Completed 04/15/2021 99952 Office/Outpatient Established Mo d MDM 30-39 Min Completed 04/15/2021 01740 Inject/Drain Arthrocentesis Madonna r Joint/Bursa/Ganglion Cyst Completed 04/03/2021 22173 Office/Outpatient New Moderate M DM 45-59 Minutes Completed 03/31/2021 15993 Office/Outpatient Established Lo w MDM 20-29 Min Completed 03/27/2021 27076 Office/Outpatient Established Lo w MDM 20-29 Min Completed 02/17/2021 94207 Office/Outpatient Established Mo d MDM 30-39 Min Completed 02/17/2021 05550 Inject/Drain Arthrocentesis Madonna r Joint/Bursa/Ganglion Cyst Completed 01/07/2021 10466 Office/Outpatient New Moderate M DM 45-59 Minutes Completed 01/01/2021 24445 Office/Outpatient Established Lo w MDM 20-29 Min Completed Medical Devices Description No Information Available Encounters Type Date Location Provider Dx Diagnosis Office Visit 06/30/2021 1:00p [facility] Jameson Gonzales MD S83.231D Complex tear of medial mensc, current injury, r knee, subs M94.20 Chondromalacia, unspecified site Office Visit 04/29/2021 1:30p [facility] Jameson Gonzales MD S83.231D Complex tear of medial mensc, current injury, r knee, subs Office Visit 04/15/2021 3:30p [facility] Jameson Gonzales MD M23.92 Unspecified internal derangement of left knee Office Visit 04/03/2021 2:00p [facility] Jaemson Gonzales MD M23.92 Unspecified internal derangement of left knee Office Visit 03/31/2021 1:00p [facility] Gelacio Katz MD M23.322 Oth meniscus derang, post horn of medial meniscus, l knee M17.0 Bilateral primary osteoarthr itis of knee Office Visit 03/27/2021 11:00a [facility] Roland Swartz MD J31.0 Chronic rhinitis J32.0 Chronic maxillary sinusitis J34.2 Deviated nasal septum Office Visit 02/17/2021 11:30a [facility] Gelacio Katz MD M17.12 Unilateral primary osteoarthritis, left knee M23.322 Oth meniscus derang, post ho rn of medial meniscus, l knee Office Visit 01/07/2021 9:30a [facility] Roland Swartz MD J35.01 Chronic tonsillitis J31.0 Chronic rhinitis J32.0 Chronic maxillary sinusitis R43.8 Other disturbances of smell and taste Office Visit 01/01/2021 12:30p [facility] SHANNON Jean G47.33 Obstructive sleep apnea (adult) (pediatr ic) Assessments Date Code Description Provider 06/30/2021 S83.231D [...] of smell and taste Roland Swartz MD 01/01/2021 G47.33 Obstructive sleep apnea (adult) (pediatric) SHANNON Jean Plan of Treatment Future Appointment(s):* 09/30/2021 10:00 am - Jameson Gonzales MD at [facility] 06/30/2021 - Jameson Gonzales MD* S83.231D Tear [...] Gonzales M.D. left knee OA Closed 04/03/2021 [facility] [address] , [place] [address] [phone]"
--- OUTSIDE RECORDS SUMMARY | 2021-09-05 11:45 | CCD | Continuity of Care Document ---
Author Author Yoana [facility] Organization Unknown Address [address] [place] [address] Phone [phone] Care Team Providers Care Leather Shaver Name Role Phone Syeda Matthews HERLINDA AUTM Mann Nuñez PA-C AUTM [phone] Problems Description No Information Available Social History [...] Information Available Procedures Date Code Description Status 07/15/2021 42399 Therapeutic Procedure, Each 15 M inutes Completed 06/24/2021 64781 Therapeutic Procedure, Each 15 M inutes Completed 06/10/2021 57282 Therapeutic Procedure, Each 15 M inutes Completed 06/10/2021 34002 Hot Or Cold Packs Completed 06/05/2021 49701 Therapeutic Procedure, Each 15 M inutes Completed 05/27/2021 64258 Therapeutic Procedure, Each 15 M inutes Completed 05/27/2021 04930 Hot Or Cold Packs Completed 05/20/2021 84612 Therapeutic Procedure, Each 15 M inutes Completed 05/13/2021 56676 Therapeutic Procedure, Each 15 M inutes Completed 04/29/2021 17325 Therapeutic Procedure, Each 15 M inutes Completed 04/22/2021 42036 Therapeutic Procedure, Each 15 M inutes Completed 04/15/2021 21479 Therapeutic Procedure, Each 15 M inutes Completed 04/15/2021 05295 Hot Or Cold Packs Completed 04/01/2021 55033 Therapeutic Procedure, Each 15 M inutes Completed 04/01/2021 29968 Hot Or Cold Packs Completed 03/23/2021 95943 Physical Therapy Eval - Low Comp lexity Completed Medical Devices Description No Information Available Encounters Description No Information Available Assessments Date Code Description Provider 07/15/2021 M17.12 Unilateral primary osteoarthriti s, left knee Robyn Sumaya Braswell, SNOW REMOVAL/PLOWING 07/15/2021 M23.322 Other meniscus deran gements, posterior horn of medial meniscus, left knee Robyn uGann Braswell, SNOW REMOVAL/PLOWING 06/24/2021 M17.12 Unilateral primary osteoarthriti s, left knee Robyn Guann Braswell, SNOW REMOVAL/PLOWING 06/24/2021 M23.322 Other meniscus deran gements, posterior horn of medial meniscus, left knee Robyn Guann Braswell, SNOW REMOVAL/PLOWING 06/10/2021 M17.12 Unilateral primary osteoarthriti s, left knee Medardo Ocampo, PT, DPT 06/10/2021 M23.322 Other meniscus deran gements, posterior horn of medial meniscus, left knee Medardo Ocampo, PT, DPT 06/05/2021 M17.12 Unilateral primary osteoarthriti s, left knee Robyn Sumaya Braswell, SNOW REMOVAL/PLOWING 06/05/2021 M23.322 Other meniscus deran gements, posterior horn of medial meniscus, left knee Robyn Guann Braswell, SNOW REMOVAL/PLOWING 05/27/2021 M17.12 Unilateral primary osteoarthriti s, left knee Medardo Aj Terrence, PT, DPT 05/27/2021 M23.322 Other meniscus deran gements, posterior horn of medial meniscus, left knee Medardo Aj Terrence, PT, DPT 05/20/2021 M17.12 Unilateral primary osteoarthriti s, left knee Robyn Sumaya Braswell, SNOW REMOVAL/PLOWING 05/20/2021 M23.322 Other meniscus deran gements, posterior horn of medial meniscus, left knee Robyn Sumaya Braswell, SNOW REMOVAL/PLOWING 05/13/2021 M17.12 Unilateral primary osteoarthriti s, left knee Robyn Sumaya Braswell, SNOW REMOVAL/PLOWING 05/13/2021 M23.322 Other meniscus deran gements, posterior horn of medial meniscus, left knee Robyn Sumaya Braswell, SNOW REMOVAL/PLOWING 04/29/2021 M17.12 Unilateral primary osteoarthriti s, left knee Robyn Sumaya Braswell, SNOW REMOVAL/PLOWING 04/29/2021 M23.322 Other meniscus deran gements, posterior horn of medial meniscus, left knee Robyn Sumaya Braswell, SNOW REMOVAL/PLOWING 04/22/2021 M17.12 Unilateral primary osteoarthriti s, left knee Robyn Sumaya Braswell, SNOW REMOVAL/PLOWING 04/22/2021 M23.322 Other meniscus deran gements, posterior horn of medial meniscus, left knee Robyn Sumaya Braswell, SNOW REMOVAL/PLOWING 04/15/2021 M17.12 Unilateral primary osteoarthriti s, left knee Medardo Aj Terrence, PT, DPT 04/15/2021 M23.322 Other meniscus deran gements, posterior horn of medial meniscus, left knee Medardo Aj Terrence, PT, DPT 04/01/2021 M17.12 Unilateral primary osteoarthriti s, left knee Robyn Sumaya Braswell, SNOW REMOVAL/PLOWING 04/01/2021 M23.322 Other meniscus deran gements, posterior horn of medial meniscus, left knee Robyn Sumaya Braswell, SNOW REMOVAL/PLOWING 03/23/2021 M17.12 Unilateral primary osteoarthriti s, left knee Medardo Buckley. Dinmegan, PT, DPT 03/23/2021 M23.322 Other meniscus deran gements, posterior horn of medial meniscus, left knee Medardo Aj Dinmegan, PT, DPT Plan of Treatment Future Appointment(s):* 07/22/2021 3:30 pm - Medardo Ocampo, PT, DPT at Physical Therapy Referral Functional Status Description No Information Available Mental Status Description No Information Available Referrals Refer to Reason for Referral Status Appt Date Jordon Watkins MD Physical therapy right knee per medicare no auth req based on medical necessity [place] [facility] [place]pt sw. Created [address] [facility], [address] [address] [phone]
--- OUTSIDE RECORDS SUMMARY | 2021-09-05 11:45 | CCD ---
"Continuity of Care Document (CCD) Created on: 08/24/2021 Yoana Fish External Reference #: [id number] : [id number] Sex: Female Author Author Yoana GONZALES MD Organization Unknown Address [address] [place] [address] , [place] [address] Phone [phone] Care Team Providers Care Outside Salesperson Name Role Phone Syeda Matthews AUTM [phone] AUTM Unavailable AUTM Unavailable Seven Arambula M.D. AUTM Problems Active Problems Provider Date Obstructive sleep apnea syndrome Pio Lin, P.APrincess Onset: 09/19/2020 Social History Type Date Description Comments Sex Unknown ETOH Use 2 A Day Tobacco Use Start: Unknown Non Smoker Recreational Drug Use Denies Drug Use Smoking Status Reviewed: 08/21/21 Non Smoker Allergies and adverse reactions Active Allergies Criticality Reaction | Severity Comments Date NKDA Unable to assess criticality 03/01/2019 Environmental Unable to assess criticality 01/07/2021 Seasonal Unable to assess criticality 01/07/2021 Medications Active Medications SIG Qnty Indications Ordering Provide r Date Saline Nasal [place] 0.65% Solution 2 sprays to each nostril [...] Information Available Procedures Date Code Description Status 08/21/2021 44847 Office/Outpatient Established Lo w MDM 20-29 Min Completed 06/30/2021 08769 Office/Outpatient Established Lo w MDM 20-29 Min Completed 04/29/2021 22637 Office/Outpatient Established Lo w MDM 20-29 Min Completed 04/15/2021 33179 Office/Outpatient Established Mo d MDM 30-39 Min Completed 04/15/2021 37478 Inject/Drain Arthrocentesis Madonna r Joint/Bursa/Ganglion Cyst Completed 04/03/2021 33818 Office/Outpatient New Moderate M DM 45-59 Minutes Completed 03/31/2021 47253 Office/Outpatient Established Lo w MDM 20-29 Min Completed 03/27/2021 73392 Office/Outpatient Established Lo w MDM 20-29 Min Completed Medical Devices Description No Information Available Encounters Type Date Location Provider Dx Diagnosis Office Visit 08/21/2021 11:30a [facility] Jameson Gonzales MD S83.231D Complex tear of medial mensc, current injury, r knee, subs M94.20 Chondromalacia, unspecified site Office Visit 06/30/2021 1:00p [facility] Jameson Gonzales MD S83.231D Complex tear of medial mensc, current injury, r knee, subs M94.20 Chondromalacia, unspecified site Office Visit 04/29/2021 1:30p [facility] Jameson Gonzales MD S83.231D Complex tear of medial mensc, current injury, r knee, subs Office Visit [facility] M23.92 Unspecified internal derangement of left knee Office Visit 04/03/2021 2:00p [facility] Jameson Gonzales MD M23.92 Unspecified internal derangement of left knee Office Visit 03/31/2021 1:00p [facility] Gelacio Katz MD M23.322 Oth meniscus derang, post horn of medial meniscus, l knee M17.0 Bilateral primary osteoarthr itis of knee Office Visit 03/27/2021 11:00a [facility] Roland Swartz MD J31.0 Chronic rhinitis J32.0 Chronic maxillary sinusitis J34.2 Deviated nasal septum Assessments Date Code Description Provider 08/21/2021 S83.231D Tear of medial meniscus of knee Jameson Gonzales MD 08/21/2021 M94.20 Chondromalacia Jameson Gonzales MD 06/30/2021 S83.231D Tear of medial meniscus of [...] J34.2 Deviated nasal septum Roland conteh MD Plan of Treatment Future Appointment(s):* 12/21/2021 3:30 pm - Jameson Gonzales MD at [facility] 08/21/2021 - Jameson Gonzales MD* S83.231D Tear of medial meniscus of knee* Comments:* The patient is continuing to do well with conservative treatment. She is very happy with the results of physical therapy and would like to continue with strengthening exercises. I would like them to help her with establishing a home program as well. She states that she has not had any popping or snapping of late. * Follow up:* Follow-up in 4 months * M94.20 Chondromalacia Functional Status Functional Condition Comment Date Status Independent with all ADL's Activ e Mental Status Mental Condition Comment Date Status None Active Referrals Refer to Reason for Referral Status Appt Date Jameson Gonzales M.D. left knee OA Closed 04/03/2021 [facility] [address] , [facility] [place] [address] [phone]"
--- OUTSIDE RECORDS SUMMARY | 2021-09-05 11:45 | CCD | Continuity of Care Document ---
Author Author Yoana MARSH DPT Organization Unknown Address [address] [place] [address] Phone [phone] Care Team Providers Care Blanket Cutting Machine Operator Name Role Phone Syeda Matthews HERLINDA AUTM [phone] Mann Nuñez PA-C AUTM [phone] Problems Description No Information Available Social History [...] Available Procedures Date Code Description Status 06/24/2021 43179 Therapeutic Procedure, Each 15 M inutes Completed 06/10/2021 53314 Therapeutic Procedure, Each 15 M inutes Completed 06/10/2021 84930 Hot Or Cold Packs Completed 06/05/2021 35083 Therapeutic Procedure, Each 15 M inutes Completed 05/27/2021 82290 Therapeutic Procedure, Each 15 M inutes Completed 05/27/2021 44358 Hot Or Cold Packs Completed 05/20/2021 93398 Therapeutic Procedure, Each 15 M inutes Completed 05/13/2021 94762 Therapeutic Procedure, Each 15 M inutes Completed 04/29/2021 70031 Therapeutic Procedure, Each 15 M inutes Completed 04/22/2021 40945 Therapeutic Procedure, Each 15 M inutes Completed 04/15/2021 63437 Therapeutic Procedure, Each 15 M inutes Completed 04/15/2021 21860 Hot Or Cold Packs Completed 04/01/2021 25126 Therapeutic Procedure, Each 15 M inutes Completed 04/01/2021 78384 Hot Or Cold Packs Completed 03/23/2021 34370 Physical Therapy Eval - Low Comp lexity Completed Medical Devices Description No Information Available Encounters Description No Information Available Assessments Date Code Description Provider 06/24/2021 M17.12 Unilateral primary osteoarthriti s, left knee Robyn Sumaya Braswell, TRUCK MECHANIC APPRENTICE 06/24/2021 M23.322 Other meniscus deran gements, posterior horn of medial meniscus, left knee Robyn Sumaya Braswell, TRUCK MECHANIC APPRENTICE 06/10/2021 M17.12 Unilateral primary osteoarthriti s, left knee Medardo BuckleyPrincess Dinmegan, PT, DPT 06/10/2021 M23.322 Other meniscus deran gements, posterior horn of medial meniscus, left knee Medardo M. Dinmegan, PT, DPT 06/05/2021 M17.12 Unilateral primary osteoarthriti s, left knee Robyn Sumaya Braswell, TRUCK MECHANIC APPRENTICE 06/05/2021 M23.322 Other meniscus deran gements, posterior horn of medial meniscus, left knee Robyn Sumaya Braswell, TRUCK MECHANIC APPRENTICE 05/27/2021 M17.12 Unilateral primary osteoarthriti s, left knee Medardo M. Dinan, PT, DPT 05/27/2021 M23.322 Other meniscus deran gements, posterior horn of medial meniscus, left knee Medardo MPrincess Dinan, PT, DPT 05/20/2021 M17.12 Unilateral primary osteoarthriti s, left knee Robyn Sumaya Braswell, TRUCK MECHANIC APPRENTICE 05/20/2021 M23.322 Other meniscus deran gements, posterior horn of medial meniscus, left knee Robyn Braswell, TRUCK MECHANIC APPRENTICE 05/13/2021 M17.12 Unilateral primary osteoarthriti s, left knee Robyn Braswell, TRUCK MECHANIC APPRENTICE 05/13/2021 M23.322 Other meniscus deran gements, posterior horn of medial meniscus, left knee Robyn Braswell, TRUCK MECHANIC APPRENTICE 04/29/2021 M17.12 Unilateral primary osteoarthriti s, left knee Robyn Braswell, TRUCK MECHANIC APPRENTICE 04/29/2021 M23.322 Other meniscus deran gements, posterior horn of medial meniscus, left knee Robyn Braswell, TRUCK MECHANIC APPRENTICE 04/22/2021 M17.12 Unilateral primary osteoarthriti s, left knee Robyn Braswell, TRUCK MECHANIC APPRENTICE 04/22/2021 M23.322 Other meniscus deran gements, posterior horn of medial meniscus, left knee Robyn Braswell, TRUCK MECHANIC APPRENTICE 04/15/2021 M17.12 Unilateral primary osteoarthriti s, left knee Medardo Marsh, PT, DPT 04/15/2021 M23.322 Other meniscus deran gements, posterior horn of medial meniscus, left knee Medardomegan Marsh, PT, DPT 04/01/2021 M17.12 Unilateral primary osteoarthriti s, left knee Robyn Braswell, TRUCK MECHANIC APPRENTICE 04/01/2021 M23.322 Other meniscus deran gements, posterior horn of medial meniscus, left knee Robyn Braswell, TRUCK MECHANIC APPRENTICE 03/23/2021 M17.12 Unilateral primary osteoarthriti s, left knee Medardo Marsh, PT, DPT 03/23/2021 M23.322 Other meniscus deran gements, posterior horn of medial meniscus, left knee Medardo Marsh, PT, DPT Plan of Treatment Future Appointment(s):* 07/01/2021 10:30 am - Robyn Braswell, TRUCK MECHANIC APPRENTICE at Physical Therapy Referral Functional Status Description No Information Available Mental Status Description No Information Available Referrals Description No Information Available
--- OUTSIDE RECORDS SUMMARY | 2021-09-05 11:45 | CCD | Continuity of Care Document ---
Author Author Yoana GONZALES MD Organization Unknown Address [address] [place] [address] , [place] [address] Phone [phone] Care Team Providers Care Mass Spec Name Role Phone Syeda Matthews AUTM [phone] AUTM Unavailable AUTM Unavailable Seven Arambula M.D. AUTM [phone] Active Problems Provider Date Obstructive [...] Indications Ordering Provide r Date Saline Nasal [place] 0.65% Solution 2 sprays to each nostril [...] Available Procedures Date Code Description Status 06/30/2021 73069 Office/Outpatient Established SF MDM 10-19 Min Completed 04/29/2021 19005 Office/Outpatient Established Lo w MDM 20-29 Min Completed 04/15/2021 81040 Office/Outpatient Established Mo d MDM 30-39 Min Completed 04/15/2021 34178 Inject/Drain Arthrocentesis Madonna r Joint/Bursa/Ganglion Cyst Completed 04/03/2021 34856 Office/Outpatient New Moderate M DM 45-59 Minutes Completed 03/31/2021 86714 Office/Outpatient Established Lo w MDM 20-29 Min Completed 03/27/2021 75039 Office/Outpatient Established Lo w MDM 20-29 Min Completed 02/17/2021 79569 Office/Outpatient Established Mo d MDM 30-39 Min Completed 02/17/2021 59530 Inject/Drain Arthrocentesis Madonna r Joint/Bursa/Ganglion Cyst Completed 01/07/2021 07135 Office/Outpatient New Moderate M DM 45-59 Minutes Completed 01/01/2021 58885 Office/Outpatient Established Lo w MDM 20-29 Min Completed Medical Devices Description No Information Available Encounters Type Date Location Provider Dx Diagnosis Office Visit 06/30/2021 1:00p [facility] Jameson Gonzales MD S83.231D Complex tear of medial mensc, current injury, r knee, subs M94.20 Chondromalacia, unspecified site Office Visit 04/29/2021 1:30p [facility] Jameson Gonzales MD S83.231D Complex tear of medial mensc, current injury, r knee, subs Office Visit 04/15/2021 3:30p [facility] Jameson Gonzales MD M23.92 Unspecified internal derangement of left knee Office Visit 04/03/2021 2:00p [facility] Jameson Gonzales MD M23.92 Unspecified internal derangement of left knee Office Visit 03/31/2021 1:00p [facility] Gelacio Katz MD M23.322 Oth meniscus derang, post horn of medial meniscus, l knee M17.0 Bilateral primary osteoarthr itis of knee Office Visit 03/27/2021 11:00a [facility] Roland Swartz MD J31.0 Chronic rhinitis J32.0 Chronic maxillary sinusitis J34.2 Deviated nasal septum Office Visit 02/17/2021 11:30a [facility] Gelacio Katz MD M17.12 Unilateral primary osteoarthritis, left knee M23.322 Oth meniscus derang, post ho rn of medial meniscus, l knee Office Visit 01/07/2021 9:30a [facility] Roland Swartz MD J35.01 Chronic tonsillitis J31.0 Chronic rhinitis J32.0 Chronic maxillary sinusitis R43.8 Other disturbances of smell and taste Office Visit 01/01/2021 12:30p [facility] SHANNON Jean G47.33 Obstructive sleep apnea [...] 10:00 am - Jameson Gonzales MD at [facility] 06/30/2021 - Jameson Gonzales MD* S83.231D Tear [...] Gonzales M.D. left knee OA Closed 04/03/2021 [facility] [address] , [facility] [place] [address] [phone]"
--- OUTSIDE RECORDS SUMMARY | 2021-09-05 11:45 | CCD | Continuity of Care Document ---
Author Author Yoana GONZALES MD Organization Unknown Address [address] [place] [address] , [place] [address] Phone [phone] Care Team Providers Care Core Man Name Role Phone Syeda Matthews AUTM [phone] AUTM Unavailable AUTM Unavailable Seven Arambula [...] Indications Ordering Provide r Date Saline Nasal [place] 0.65% Solution 2 sprays to each nostril [...] Available Procedures Date Code Description Status 06/30/2021 36391 Office/Outpatient Established SF MDM 10-19 Min Completed 04/29/2021 17945 Office/Outpatient Established Lo w MDM 20-29 Min Completed 04/15/2021 77613 Office/Outpatient Established Mo d MDM 30-39 Min Completed 04/15/2021 44284 Inject/Drain Arthrocentesis Madonna r Joint/Bursa/Ganglion Cyst Completed 04/03/2021 38076 Office/Outpatient New Moderate M DM 45-59 Minutes Completed 03/31/2021 83046 Office/Outpatient Established Lo w MDM 20-29 Min Completed 03/27/2021 02581 Office/Outpatient Established Lo w MDM 20-29 Min Completed 02/17/2021 38906 Office/Outpatient Established Mo d MDM 30-39 Min Completed 02/17/2021 94402 Inject/Drain Arthrocentesis Madonna r Joint/Bursa/Ganglion Cyst Completed 01/07/2021 66023 Office/Outpatient New Moderate M DM 45-59 Minutes Completed 01/01/2021 98884 Office/Outpatient Established Lo w MDM 20-29 Min Completed Medical Devices Description No Information Available Encounters Type Date Location Provider Dx Diagnosis Office Visit 06/30/2021 1:00p [facility] Jameson Gonzales MD S83.231D Complex tear of medial mensc, current injury, r knee, subs M94.20 Chondromalacia, unspecified site Office Visit 04/29/2021 1:30p [facility] Jameson Gonzales MD S83.231D Complex tear of medial mensc, current injury, r knee, subs Office Visit 04/15/2021 3:30p [facility] Jameson Gonzales MD M23.92 Unspecified internal derangement of left knee Office Visit 04/03/2021 2:00p [facility] Jameson Gonzales MD M23.92 Unspecified internal derangement of left knee Office Visit 03/31/2021 1:00p [facility] Gelacio Katz MD M23.322 Oth meniscus derang, post horn of medial meniscus, l knee M17.0 Bilateral primary osteoarthr itis of knee Office Visit 03/27/2021 11:00a [facility] Roland Swartz MD J31.0 Chronic rhinitis J32.0 Chronic maxillary sinusitis J34.2 Deviated nasal septum Office Visit 02/17/2021 11:30a [facility] Gelacio Katz MD M17.12 Unilateral primary osteoarthritis, left knee M23.322 Oth meniscus derang, post ho rn of medial meniscus, l knee Office Visit 01/07/2021 9:30a [facility] Roland Swartz MD J35.01 Chronic tonsillitis J31.0 Chronic rhinitis J32.0 Chronic maxillary sinusitis R43.8 Other disturbances of smell and taste Office Visit 01/01/2021 12:30p [facility] Jean G47.33 Obstructive sleep apnea [...] 10:00 am - Jameson Gonzales MD at [facility] 06/30/2021 - Jameson Gonzales MD* S83.231D [...] Gonzales M.D. left knee OA Closed 04/03/2021 [facility] [address] , [facility] [place] [address] [phone]"
--- OUTSIDE RECORDS SUMMARY | 2021-09-05 11:45 | CCD | Continuity of Care Document ---
Author Author Yoana GONZALES MD Organization Unknown Address [address] [place] [address] , [place] [address] Phone [phone] Care Team Providers Care Customer Support Analyst Name Role Phone Syeda Matthews AUTM [phone] AUTM Unavailable AUTM Unavailable Seven Arambula [...] Indications Ordering Provide r Date Saline Nasal [place] 0.65% Solution 2 sprays to each nostril [...] Available Procedures Date Code Description Status 06/30/2021 98242 Office/Outpatient Established Lo w MDM 20-29 Min Completed 04/29/2021 09399 Office/Outpatient Established Lo w MDM 20-29 Min Completed 04/15/2021 88809 Office/Outpatient Established Mo d MDM 30-39 Min Completed 04/15/2021 71365 Inject/Drain Arthrocentesis Madonna r Joint/Bursa/Ganglion Cyst Completed 04/03/2021 99734 Office/Outpatient New Moderate M DM 45-59 Minutes Completed 03/31/2021 80492 Office/Outpatient Established Lo w MDM 20-29 Min Completed 03/27/2021 68144 Office/Outpatient Established Lo w MDM 20-29 Min Completed Medical Devices Description No Information Available Encounters Type Date Location Provider Dx Diagnosis Office Visit 06/30/2021 1:00p [facility] Jameson Gonzales MD S83.231D Complex tear of medial mensc, current injury, r knee, subs M94.20 Chondromalacia, unspecified site Office Visit 04/29/2021 1:30p [facility] Jameson Gonzales MD S83.231D Complex tear of medial mensc, current injury, r knee, subs Office Visit 04/15/2021 3:30p [facility] Jameson Gonzales MD M23.92 Unspecified internal derangement of left knee Office Visit 04/03/2021 2:00p [facility] Jameson Gonzales MD M23.92 Unspecified internal derangement of left knee Office Visit 03/31/2021 1:00p [facility] Gelacio Katz MD M23.322 Oth meniscus derang, post horn of medial meniscus, l knee M17.0 Bilateral primary osteoarthr itis of knee Office Visit 03/27/2021 11:00a [facility] Roland Swartz MD J31.0 Chronic rhinitis J32.0 Chronic maxillary sinusitis J34.2 Deviated nasal septum Assessments Date Code Description Provider 06/30/2021 S83.231D [...] 3:30 pm - Jameson Gonzales MD at [facility] 06/30/2021 - Jameson Gonzales MD* S83.231D Tear [...] Gonzales M.D. left knee OA Closed 04/03/2021 [facility] [address] , [facility] [place] [address] [phone]"
--- OUTSIDE RECORDS SUMMARY | 2021-09-05 11:45 | CCD ---
"Continuity of Care Document (CCD) Created on: 06/30/2021 Yoana Fish External Reference #: [id number] : [id number] Sex: Female Author Author Yoana GONZALES MD Organization Unknown Address [address] [place] [address] , [place] [address] Phone [phone] Care Team Providers Care Tire Maker Name Role Phone Syeda Matthews AUTM AUTM [...] Indications Ordering Provide r Date Saline Nasal [place] 0.65% Solution 2 sprays to each nostril [...] Available Procedures Date Code Description Status 06/30/2021 65429 Office/Outpatient Established SF MDM 10-19 Min Completed 04/29/2021 20035 Office/Outpatient Established Lo w MDM 20-29 Min Completed 04/15/2021 52998 Office/Outpatient Established Mo d MDM 30-39 Min Completed 04/15/2021 81571 Inject/Drain Arthrocentesis Madonna r Joint/Bursa/Ganglion Cyst Completed 04/03/2021 09144 Office/Outpatient New Moderate M DM 45-59 Minutes Completed 03/31/2021 55770 Office/Outpatient Established Lo w MDM 20-29 Min Completed 03/27/2021 12937 Office/Outpatient Established Lo w MDM 20-29 Min Completed 02/17/2021 15652 Office/Outpatient Established Mo d MDM 30-39 Min Completed 02/17/2021 03316 Inject/Drain Arthrocentesis Madonna r Joint/Bursa/Ganglion Cyst Completed 01/07/2021 89100 Office/Outpatient New Moderate M DM 45-59 Minutes Completed 01/01/2021 72293 Office/Outpatient Established Lo w MDM 20-29 Min Completed Medical Devices Description No Information Available Encounters Type Date Location Provider Dx Diagnosis Office Visit 06/30/2021 1:00p [facility] Jameson Gonzales MD S83.231D Complex tear of medial mensc, current injury, r knee, subs M94.20 Chondromalacia, unspecified site Office Visit 04/29/2021 1:30p [facility] Jameson Gonzales MD S83.231D Complex tear of medial mensc, current injury, r knee, subs Office Visit 04/15/2021 3:30p [facility] Jameson Gonzales MD M23.92 Unspecified internal derangement of left knee Office Visit 04/03/2021 2:00p [facility] Jameson Gonzales MD M23.92 Unspecified internal derangement of left knee Office Visit 03/31/2021 1:00p [facility] Gelacio Katz MD M23.322 Oth meniscus derang, post horn of medial meniscus, l knee M17.0 Bilateral primary osteoarthr itis of knee Office Visit 03/27/2021 11:00a [facility] Roland Swartz MD J31.0 Chronic rhinitis J32.0 Chronic maxillary sinusitis J34.2 Deviated nasal septum Office Visit 02/17/2021 11:30a [facility] Gelacio Katz MD M17.12 Unilateral primary osteoarthritis, left knee M23.322 Oth meniscus derang, post ho rn of medial meniscus, l knee Office Visit 01/07/2021 9:30a [facility] Roland Swartz MD J35.01 Chronic tonsillitis J31.0 Chronic rhinitis J32.0 Chronic maxillary sinusitis R43.8 Other disturbances of smell and taste Office Visit 01/01/2021 12:30p [facility]ON Jean G47.33 Obstructive sleep apnea [...] 10:00 am - Jameson Gonzales MD at [facility] 06/30/2021 - Jameson Gonzales MD* S83.231D [...] Gonzales M.D. left knee OA Closed 04/03/2021 [facility] [address] [address] , [facility] [place] [address] [phone]"
--- OUTSIDE RECORDS SUMMARY | 2021-09-05 11:46 | CCD ---
Author Author [facility] Organization [facility] Address Unknown Phone Unavailable Care Team Providers Care Clinical Interviewer Name Role Phone Byron, Syeda JAVA J2EE LEAD JAVA J2EE LEAD Unavailable Unavailable Mollison, Geoff Brizuela MD Unavailable Unavailable Mollison, Geoff Brizuela MD Unavailable Unavailable Mollison, Geoff Brizuela MD Unavailable Unavailable Mollison, Geoff Brizuela MD Unavailable Unavailable Mollison, Geoff Brizuela MD Unavailable Unavailable Mollison, Geoff Brizuela MD Unavailable Unavailable Mollison, Geoff Brizuela MD Unavailable Unavailable Mollison, Geoff Brizuela MD Unavailable Unavailable Mollison, Geoff Brizuela MD Unavailable Unavailable Mollison, Geoff Brizuela MD Unavailable Unavailable Mollison, Geoff Brizuela MD Unavailable Unavailable Mollison, Geoff Brizuela MD Unavailable Unavailable Mollison, Geoff Brizuela MD Unavailable Unavailable Mollison, Geoff Brizuela MD Unavailable Unavailable Mollison, Geoff Brizuela MD Unavailable Unavailable Mollison, Geoff Brizuela MD Unavailable Unavailable Mollison, Geoff Brizuela MD Unavailable Unavailable Mollison, Geoff Brizuela MD Unavailable Unavailable Mollison, Geoff Brizuela MD Unavailable Unavailable Mollison, Geoff Brizuela MD Unavailable Unavailable Mollison, Geoff Brizuela MD Unavailable Unavailable Mollison, Geoff Brizuela MD Unavailable Unavailable Mollison, Geoff Brizuela MD Unavailable Unavailable Mollison, Geoff Brizuela MD Unavailable Unavailable Mollison, Geoff Brizuela MD Unavailable Unavailable Mollison, Geoff Brizuela MD Unavailable Unavailable Mollison, Geoff Brizuela MD Unavailable Unavailable Mollison, Geoff Brizuela MD Unavailable Unavailable Mollison, Geoff Brizuela MD Unavailable Unavailable Mollison, Geoff Brizuela MD Unavailable Unavailable Byron, A Syeda JAVA J2EE LEAD Unavailable Unavailable [place], A Syeda JAVA J2EE LEAD Unavailable Unavailable [place], A Syeda JAVA J2EE LEAD Unavailable Unavailable [place], A Syeda JAVA J2EE LEAD Unavailable Unavailable [place], A Syeda JAVA J2EE LEAD Unavailable Unavailable [place], A Syeda JAVA J2EE LEAD Unavailable Unavailable [place], A Syeda JAVA J2EE LEAD Unavailable Unavailable [place], A Syeda JAVA J2EE LEAD Unavailable Unavailable [place], A Syeda JAVA J2EE LEAD Unavailable Unavailable [place], A Syeda JAVA J2EE LEAD Unavailable Unavailable [place], A Syeda JAVA J2EE LEAD Unavailable Unavailable [place], A Syeda JAVA J2EE LEAD Unavailable Unavailable [place], A Syeda JAVA J2EE LEAD Unavailable Unavailable [place], A Syeda JAVA J2EE LEAD Unavailable Unavailable [place], A Syeda JAVA J2EE LEAD Unavailable Unavailable [place], A Syeda JAVA J2EE LEAD Unavailable Unavailable [place], A Syeda JAVA J2EE LEAD Unavailable Unavailable [place], A Syeda JAVA J2EE LEAD Unavailable Unavailable [place], A Syeda JAVA J2EE LEAD Unavailable Unavailable [place], A Syeda JAVA J2EE LEAD Unavailable Unavailable [place], A Syeda JAVA J2EE LEAD Unavailable Unavailable [place], A Syeda JAVA J2EE LEAD Unavailable Unavailable [place], A Syeda JAVA J2EE LEAD Unavailable Unavailable [place], A Syeda JAVA J2EE LEAD Unavailable Unavailable [place], A Syeda JAVA J2EE LEAD Unavailable Unavailable [place], A Syeda JAVA J2EE LEAD Unavailable Unavailable [place], A Syeda JAVA J2EE LEAD Unavailable Unavailable [place], A Syeda JAVA J2EE LEAD Unavailable Unavailable Byron, A Syeda JAVA J2EE LEAD Unavailable Unavailable Byron, A Syeda JAVA J2EE LEAD Unavailable Unavailable Byron, A Syeda JAVA J2EE LEAD Unavailable Unavailable Lionel Rama Unavailable Serjio, Jameson BARRETO Unavailable Unavailable Bassett, Jameson BARRETO Unavailable Unavailable Bassett, Jameson BARRETO Unavailable Unavailable Bassett, Jameson BARRETO Unavailable Unavailable Bassett, Jameson BARRETO Unavailable Unavailable Serjio, Jameson BARRETO Unavailable Unavailable Bassett, Jameson BARRETO Unavailable Unavailable Bassett, Jameson BARRETO Unavailable Unavailable Bassett, Jameson BARRETO Unavailable Unavailable Bassett, Jameson BARRETO Unavailable Unavailable Igor Snyderkareni Unavailable Byron, A Syeda JAVA J2EE LEAD Unavailable Unavailable [place], A Syeda JAVA J2EE LEAD Unavailable Unavailable [place], A Syeda JAVA J2EE LEAD Unavailable Unavailable [place], A Syeda JAVA J2EE LEAD Unavailable Unavailable [place], A Syeda JAVA J2EE LEAD Unavailable Unavailable [place], A Syeda JAVA J2EE LEAD Unavailable Unavailable [place], A Syeda JAVA J2EE LEAD Unavailable Unavailable [place], A Syeda JAVA J2EE LEAD Unavailable Unavailable [place], A Syeda JAVA J2EE LEAD Unavailable Unavailable [place], A Syeda JAVA J2EE LEAD Unavailable Unavailable [place], A Syeda JAVA J2EE LEAD Unavailable Unavailable [place], A Syeda JAVA J2EE LEAD Unavailable Unavailable [place], A Syeda JAVA J2EE LEAD Unavailable Unavailable [place], A Syeda JAVA J2EE LEAD Unavailable Unavailable [place], A Syeda JAVA J2EE LEAD Unavailable Unavailable [place], A Syeda JAVA J2EE LEAD Unavailable Unavailable [place], A Syeda JAVA J2EE LEAD Unavailable Unavailable [place], A Syeda JAVA J2EE LEAD Unavailable Unavailable [place], A Syeda JAVA J2EE LEAD Unavailable Unavailable [place], A Syeda JAVA J2EE LEAD Unavailable Unavailable [place], A Syeda JAVA J2EE LEAD Unavailable Unavailable [place], A Syeda JAVA J2EE LEAD Unavailable Unavailable [place], A Syeda JAVA J2EE LEAD Unavailable Unavailable [place], A Syeda JAVA J2EE LEAD Unavailable Unavailable [place], A Syeda JAVA J2EE LEAD Unavailable Unavailable [place], A Syeda JAVA J2EE LEAD Unavailable Unavailable [place], A Syeda JAVA J2EE LEAD Unavailable Unavailable [place], A Syeda JAVA J2EE LEAD Unavailable Unavailable [place], A Syeda JAVA J2EE LEAD Unavailable Unavailable [place], A Syeda JAVA J2EE LEAD Unavailable Unavailable [place], A Syeda JAVA J2EE LEAD Unavailable Unavailable Annabelle SWARTZ MD Unavailable Unavailable Annabelle SWARTZ MD Unavailable Unavailable Annabelle SWARTZ MD Unavailable Unavailable Annabelle SWARTZ MD Unavailable Unavailable Annabelle SWARTZ MD Unavailable Unavailable Annabelle SWARTZ MD Unavailable Unavailable Annabelle SWARTZ MD Unavailable Unavailable Annabelle SWARTZ MD Unavailable Unavailable Annabelle SWARTZ MD Unavailable Unavailable Annabelle SWARTZ MD Unavailable Unavailable Annabelle SWARTZ MD Unavailable Unavailable Annabelle SWARTZ MD Unavailable Unavailable Annabelle SWARTZ MD Unavailable Unavailable Annabelle SWARTZ MD Unavailable Unavailable Annabelle SWARTZ MD Unavailable Unavailable Annabelle SWARTZ MD Unavailable Unavailable Annabelle SWARTZ MD Unavailable Unavailable Annabelle SWARTZ MD Unavailable Unavailable Annabelle SWARTZ MD Unavailable Unavailable Annabelle SWARTZ MD Unavailable Unavailable Annabelle SWARTZ MD Unavailable Unavailable Annabelle SWARTZ MD Unavailable Unavailable Annabelle SWARTZ MD Unavailable Unavailable Annabelle SWARTZ MD Unavailable Unavailable Annabelle SWARTZ MD Unavailable Unavailable Annabelle SWARTZ MD Unavailable Unavailable Annabelle SWARTZ MD Unavailable Unavailable Annabelle SWARTZ MD Unavailable Unavailable Annabelle SWARTZ MD Unavailable Unavailable Annabelle SWARTZ MD Unavailable Unavailable Annabelle SWARTZ MD Unavailable Unavailable Annabelle SWARTZ MD Unavailable Unavailable Annabelle SWARTZ MD Unavailable Unavailable Annabelle SWARTZ MD Unavailable Unavailable JULIAN, M NBA PA Unavailable [...] JULIAN, M NBA PA Unavailable Unavailable JULIAN, Marcio ARANGO PA Unavailable Unavailable JULIAN, Marcio ARANGO PA Unavailable Unavailable JULIAN, Marcio ARANGO PA Unavailable Unavailable JULIAN, Marcio ARANGO PA Unavailable Unavailable JULIAN, Marcio ARANGO PA Unavailable Unavailable JULIAN, Marcio ARANGO PA Unavailable Unavailable JULIAN, Marcio ARANGO PA Unavailable Unavailable JULIAN, Marcio ARANGO PA Unavailable Unavailable Re-disclosure Warning The records that [...] is protected by Article 27-F of the [facility] Public Health law. If you continue you may have access to information: Regarding HIV / AIDS; Provided by facilities licensed or operated by the [facility] Office of Mental Health; or Provided by the [facility] Office for People With Developmental Disabilities. If such information is present, then the following [facility] mandated warning applies: This information has been [...] law may result in a fine or correction sentence or both. A general authorization for the release of medical or other information is NOT sufficient authorization for further disc losure. Family History Family Member Name Family Member Gender Family Member Status Date o f Status Description Data Source(s) Unknown Male Problem [facility] ([facility]) Encounters Encounter Providers Location Date Indications Data Source(s ) Outpatient Attender: Jameson Swartz/River/Nirmal/Shane jeffrey 06/30/2021 01:00:00 PM EDT [facility] ([facility]) Outpatient Attender: Jameson Swartz/Eglon/Nirmal/Rein dl 04/29/2021 01:30:00 PM EDT [facility] ([facility]) Outpatient Attender: Jameson Swartz/Eglon/Nirmal/Rein dl 04/15/2021 03:30:00 PM EDT [facility] ([facility]) Outpatient Attender: Jameson Swartz/Eglon/Nirmal/Rein dl 04/03/2021 02:00:00 PM EDT [facility] ([facility]) Outpatient Attender: Gealcio Swartz/River/Nirmal/Re indl 03/31/2021 01:00:00 PM EDT [facility] ([facility]) Outpatient Attender: MAURICIO Swartz/River/Nirmal/Reind l 03/27/2021 11:00:00 AM EDT [facility] ([facility]) Brief Individual Psychotherapy - 30 min Attender: [facility] 02/18/2021 02:00:00 AM EDT - 02/18/2021 02:00:00 AM EDT [facility] ([facility]) Attender: Galina Snyder 02/18/2021 12:00:00 AM EDT [facility] ([facility]) Outpatient Attender: Gelacio Swartz/River/Nirmal/Re indl 02/17/2021 11:30:00 AM EDT [facility] ([facility]) HERLINDA Sauer-BC: [address] [place] [address], Ph. Attender: Syeda [facility] 01/20/2021 12:00:00 AM EDT [facility] ([facility]) HERLINDA Sauer-BC: [address] [place] [address], Ph. [facility]: [facility] 01/14/2021 12:00:00 AM EDT [facility] ([facility]) NIELS SauerBC: [address] [place] [address], Ph. Attender: Syeda Matthews [facility] Medical 01/14/2021 12:00:00 AM EDT [facility] ([facility]) Outpatient Attender: MAURICIO Swartz/Eglon/Nirmal/Reind l 01/07/2021 09:30:00 AM EDT [facility] ([facility]) Outpatient Attender: NBA Swartz/Eglon/Nirmal/Rein dl 01/01/2021 12:30:00 PM EDT [facility] ([facility]) Psychiatric Diagnostic Evaluation (Non-Medical) Attender: Igor Snyder [facility] 12/26/2020 11:00:00 AM EST - 12/26/2020 11:00:00 AM EST [facility] ([facility]) Attender: Galina Snyder 12/26/2020 12:00:00 AM EST [facility] ([facility]) Brief Individual Psychotherapy - 30 min Attender: Rama shirley [facility] 12/08/2020 09:45:00 AM EST - 12/08/2020 09:45:00 AM EST [facility] ([facility]) Attender: Rama Flowers 12/08/2020 12:00:00 AM EST [facility] ([facility]) FRANSISCO Sauer: [address] [place] [address], Ph. Att[facility]: Syeda [facility] 12/02/2020 12:00:00 AM EST [facility] ([facility]) FRANSISCO Sauer: [address] [place] [address], Ph. Attender: Syeda Matthews [facility] Medical 12/02/2020 12:00:00 AM EST [facility] ([facility]) HERLINDA Sauer-BC: [address] [place] [address], Ph. Attender: Syeda Matthews [facility] Medical 12/02/2020 12:00:00 AM EST [facility] ([facility]) Outpatient Attender: Gelacio Swartz/Eglon/Nirmal/Re indl 10/27/2020 09:45:00 AM EST [facility] ([facility]) Outpatient Attender: NBA Swartz/Eglon/Nirmal/Rein dl 09/19/2020 09:00:00 AM EST [facility] ([facility]) Outpatient Attender: Gelacio Swartz/Eglon/Nirmal/Re indl 08/19/2020 12:10:00 PM EST [facility] ([facility]) [facility] 08/06/[facility] 10:31:[address] [facility]: [facility] 08/04/2020 03:5 0:[address] [facility]: [facility] 07/23/2020 09:37:[address] [facility] Unknown [address] [facility] [address] 07/18/2020 12:00:00 AM EDT eCW1 ([facility]) Immunizations Vaccine Date Status Description Data Source(s) COVID-19 VACCINE Moderna 11/20/2020 12:00:00 AM EST completed [place] Vaccine Series Complete: YESThis Data wa s Submitted to [facility] [employer]. COVID-19 VACCINE Moderna 10/23/2020 12:00:00 AM EST completed [place] Vaccine Series Complete: NOThis Data was Submitted to [facility] [employer]. Medications Medication Brand Name Start Date Product Form Dose Route Admi nistrative Instructions Pharmacy Instructions Status Indications Reaction Description Data Source(s) Sodium Chloride 0.111 MEQ/ML Nasal Solution Saline Nasal Spr ay 03/27/2021 12:00:00 AM EDT active M [facility]ENT ([facility], ) CPAP 10/16/2020 12:00:00 AM EST active [facility] ([facility], ) Amoxicillin 875 MG Oral Tablet amoxicill in 875 mg tablet TAKE 1 TABLET BY MOUTH EVERY 12 HOURS FOR 10 DAYS amoxicillin 875 mg tablet TAKE 1 TABLET BY MOUTH EVERY 12 HOURS FOR 10 DAYS completed amoxicillin 875 MG Oral Tablet [facility] ([facility]) Amoxicillin 875 MG Oral Tablet amoxicill in 875 mg tablet TAKE 1 TABLET BY MOUTH EVERY 12 HOURS FOR 10 DAYS amoxicillin 875 mg tablet TAKE 1 TABLET BY MOUTH EVERY 12 HOURS FOR 10 DAYS completed amoxicillin 875 MG Oral Tablet [facility] ([facility]) Amoxicillin 875 MG Oral Tablet amoxicill in 875 mg tablet TAKE 1 TABLET BY MOUTH EVERY 12 HOURS FOR 10 DAYS amoxicillin 875 mg tablet TAKE 1 TABLET BY MOUTH EVERY 12 HOURS FOR 10 DAYS completed amoxicillin 875 MG Oral Tablet [facility] ([facility]) Insurance Providers Payer name Policy type / Coverage type Policy ID Covered republican ID Covered republican's relationship to smith Policy Smith Plan Information MEDICARE [id number] SP [id number] [place] [id number] Self [id number] [place] Primary [id number] Self [id number] Medicare C [id number] SELF [id number] Medicaid [facility] S D [id number] SELF [id number] Medicare C [id number] SELF [id number] DME Jurisdiction A [facility] C [id number] SELF [id number] MEDICARE [id number] SP [id number] MEDICARE [id number] SP [id number] MEDICAID [id number] SP [id number] MEDICA[place] [id number] SP [id number] [place] Med[place] Part B [id number] 2.0.1.077498.3.227.99 .[id number] [place] [id number] [place] [id number] 2.840.1.370846.3.227.99 .991.825044.0 [place] [id number] [place] [id number] 2.0.1.359511.3.227.99 .991.788985.0 Self [id number] [place] [id number] 2.0.1.120637.3.227.99 .991.174093.0 Self [id number] [place] Primary [id number] 2.0.1.009643.3.227.99.991.655145.0 Self [id number] [place] Med[place] [id number] 2.0.1.529613.3.227.99.991.931470.0 Self [id number] [place] [id number] 2.0.1.885275.3.227.99.991.423411.0 Self [id number] [place] [id number] 2.0.1.170029.3.227.99.991.654128.0 Self [id number] [place] [id number] 2.0.1.147924.3.227.99 .991.648367.0 Self [id number] [place] Med[place] [id number] 2.0.1.087052.3.227.99.991.349571.0 Self [id number] [place] [id number] 2.0.1.804023.3.227.99 .991.442098.0 Self [id number] [place] [id number] 2.0.1.837266.3.227.99.991.709153.0 Self [id number] [place] [id number] 2.0.1.017608.3.227.99.991.130025.0 Self [id number] Medicaid [place] Medigap Part B [id number] 2.0.1.526156.3.227.99 .991.052377.0 Self [id number] Medicaid [place] Med[place]ap Part B [id number] 2.0.1.755118.3.227.99 .991.732033.0 Self [id number] [place] Primary [id number] 2.0.1.898516.3.227.99.991.304999.0 Self [id number] [place] Med[place] [id number] 2.0.1.455767.3.227.99.991.810817.0 Self [id number] [place] [id number] 2.0.1.741373.3.227.99.991.653197.0 Self [id number] Medicaid [place] Med[place] Part [place] [id number] 2.0.1.787943.3.227.99 .991.734886.0 Self [id number] [place] Med[place] Part [place] [id number] 2.0.1.871396.3.227.99 .991.158806.0 Self [id number] [place] Part [place] [id number] 2.0.1.382940.3.227.99 .991.833483.0 Self [id number] [place] Medicare Primary [id number] 2.0.1.582812.3.227.99.991.590690.0 Self [id number] [employer] [id number] 2.16.840.1.603709.3.227.99.991.617225.0 Self [id number] [employer] [place] [employer] Compensation [id number] 2.16.840.1.891820.3.227.99.991.590377.0 Self [id number] [employer] [place] [employer] [place] [id number] 2.16.840.1.387098.3.227.99.991.093739.0 Self [id number] [place] [id number] Self [id number] [place] [id number] Self [id number] MEDICAID [id number] SP [id number] Medicare P [id number] S [id number] Medicaid S [id number] S [id number] ANSI-Medicaid [id number] ANSI-Medicare Part B [id number] ANSI-Medicare Part B [id number] ANSI-Medicaid [id number] ANSI-Medicaid [id number] ANSI-Medicare Part B [id number] [facility]-Medicaid [id number] [facility] [id number] [facility] [id number] ANSI-Medicare Part B [id number] [place] Primary [id number] 2.0.1.436005.3.227.99.991.555782.0 Self [id number] MEDICARE C [id number] S [id number] MEDICAID [place] [id number] MEDICARE PART A [facility] [id number] 18 [id number] [place] [id number] 2.0.1.962761.3.227.99.510.7178.0 Self [id number] Medicare Part A [place] Medicare Primary [id number] 2.160.1.816732.3.227.99.510.7178.0 Self 05 [id number] TRAVELERS NO FAULT O [id number] S [id number] [place] [id number] 2.160.1.419764.3.227.99.510.7178.0 Self [id number] Medicare Part A [place] Medicare Primary [id number] 2.16.840.1.311898.3.227.99.510.7178.0 Self 05 [id number] MEDICAID -O/P [id number] 18 [id number] MEDICARE PART A -O/P [id number] 18 [id number] [place] Medicaid [id number] 2.840.1.319554.3.227.99.510.7178.0 Self [id number] Medicare Part A [place] Medicare Primary [id number] 2.840.1.144842.3.227.99.510.7178.0 Self 05 [id number] Medicaid [place] Medicaid [id number] 2.0.1.092265.3.227.99.510.7178.0 Self [id number] Medicare Part A [place] Medicare Primary [id number] 2.0.1.767894.3.227.99.510.7178.0 Self [id number] [employer] 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 COMP [id number] SP [id number] ONE CALL CARE MANAGEMENT O [id number] S [id number] [facility] [id number] SP [id number] Medicare Natl Gov't Servi Medicare Primary [id number] 2.0.1.625736.3.227.99.1767.19624.0 Self [id number] Medicare Natl Gov't Servi Medicare Primary [id number] 2.0.1.795982.3.227.99.1767.24636.0 Self [id number] Medicaid [place] Medicaid [id number] 2.840.1.049577.3.227.99.510.7178.0 Self [id number] Medicare Part A [place] Medicare Primary [id number] 2.0.1.307914.3.227.99.510.7178.0 Self 05 [id number] MEDICAID -PHYSICIAN [id number] Medicaid [place] Medicaid [id number] 2.840.1.490622.3.227.99.510.7178.0 Self [id number] Medicare Part A [place] Medicare Primary [id number] 2.16.840.1.396967.3.227.99.510.7178.0 Self 05 [id number] Medicare Natl Gov't Servi Medicare Primary [id number] 2.16.840.1.236623.3.227.99.1767.15411.0 Self [id number] [place] Medicaid [id number] 2.16.840.1.422239.3.227.99.510.7178.0 Self [id number] Medicare Part [place] Medicare Primary [id number] 2.16.840.1.400314.3.227.99.510.7178.0 Self 05 [id number] Medicaid [place] Medicaid [id number] 2.16.840.1.585876.3.227.99.510.7178.0 Self [id number] Medicare Part [place] Medicare Primary [id number] 2.16.840.1.747033.3.227.99.510.7178.0 Self 05 [id number] [place] [id number] 2.16.840.1.416165.3.227.99.510.7178.0 Self [id number] Medicare Part [place] Primary [id number] 2.16.840.1.835783.3.227.99.510.7178.0 Self 05 [id number] [place] [id number] 2.16.840.1.521996.3.227.99.510.7178.0 Self [id number] Medicare Part A [place] Medicare Primary [id number] 2.16.840.1.985436.3.227.99.510.7178.0 Self 05 [id number] MEDICAID -CLINIC [id number] [place] [id number] 2.16.840.1.398994.3.227.99.510.7178.0 Self [id number] Medicare Part A [place] Medicare Primary [id number] 2.16.840.1.806438.3.227.99.510.7178.0 Self 05 [id number] MED[place]ID [place] [facility] UNAVAILABLE 18 UNAVAI LABLE Medicare Part [place] Primary [id number] 2.16.840.1.646728.3.227.99.510.7178.0 Self 05 [id number] Medicare Natl Gov't Servi Medicare Primary [id number] Self MEDICARE PART A -CLINIC [id number] 18 [id number] MEDICARE -O/P [id number] 18 [id number] [facility] MEDICAID [id number] SP [id number] MEDICAID -O/P EMERGENCY ROOM [id number] MEDICARE [id number] SP [id number] [place] [id number] SP [id number] MEDICARE C [id number] S [id number] MEDICAID M [id number] S [id number] MEDICAID [id number] SP [id number] Medicaid S [id number] S [id number] Self Pay P UNAVAILABLE S UNAVAILA BLE MEDICARE [id number] SP [id number] ANS-Medicare Part B [id number] ANS-Medicaid [id number] ANS-Medicaid [id number] ANS-Medicare Part B [id number] ANS-Medicare Part B [id number] ANSI-Medicaid [id number] ANSI-Medicaid [id number] ANSI-Medicare Part B [id number] [place] Medicare Primary [id number] Self [id number] ANSI-Medicare Part B [id number] ANSI-Medicaid [id number] ANSI-Medicaid [id number] ANSI-Medicare Part B [id number] ANSI-Medicare Part B [id number] ANSI-Medicaid [id number] [facility]-Medicare Part B [id number] [facility]-Medicaid [id number] ANSI-Medicare Part B [id number] [facility]-Medicaid [id number] ANSI-Medicare Part B [id number] [facility]-Medicaid [id number] Medicare Natl Gov't Servi Medicare Primary [id number] Self [id number] MEDICARE [id number] SP [id number] Medicare [place] Med[place] B [id number] Self [id number] [place] Medicare Primary [id number] Self [id number] [place] Med[place]ap Part B [id number] Self [id number] ANSI-Medicare Part B [id number] ANSI-Medicaid [id number] ANSI-Medicaid [id number] ANSI-Medicare Part B [id number] [facility] [id number] ANSI-Medicare Part B [id number] Problems, Conditions, and Diagnoses Code Display Name Description Problem Type Effective Dates Data Source(s) F41.9 Anxiety disorder, unspecified Unspecified Anxiety Diso rder Condition 02/18/2021 12:00:00 AM EDT [facility] ([facility]) G47.33 Obstructive sleep apnea syndrome Obstructive sle ep apnea syndrome Problem 09/19/2020 12:00:00 AM EST MED[facility] ([facility]) Surgeries/Procedures Procedure Description Date Indications Data Source(s) THERAPEUTIC PX 1/> AREAS EACH 15 MIN EXERCISES 021 12:00:00 AM EDT MED[facility] ([facility]) OFFICE OUTPATIENT VISIT 15 MINUTES 06/30/2021 12:00:00 AM EDT MEDENT ([facility], ) OFFICE OUTPATIENT VISIT 10 MINUTES 06/30/2021 12:00:00 AM EDT MEDENT ([facility], ) THERAPEUTIC PX 1/> AREAS EACH 15 MIN EXERCISES 12:00:00 AM EDT MED[facility] ([facility]) APPLICATION MODALITY 1/> AREAS HOT/COLD PACKS 06/10/20 12:00:00 AM EDT MED[facility] ([facility]) THERAPEUTIC PX 1/> AREAS EACH 15 MIN EXERCISES 12:00:00 AM EDT MED[facility] ([facility]) THERAPEUTIC PX 1/> AREAS EACH 15 MIN EXERCISES 12:00:00 AM EDT MED[facility] ([facility]) APPLICATION MODALITY 1/> AREAS HOT/COLD PACKS 05/27/20 12:00:00 AM EDT MED[facility] ([facility]) THERAPEUTIC PX 1/> AREAS EACH 15 MIN EXERCISES 12:00:00 AM EDT MEDENT ([facility]) THERAPEUTIC PX 1/> AREAS EACH 15 MIN EXERCISES 12:00:00 AM EDT MED[facility] ([facility]) THERAPEUTIC PX 1/> AREAS EACH 15 MIN EXERCISES 12:00:00 AM EDT MEDENT ([facility]) APPLICATION MODALITY 1/> AREAS HOT/COLD PACKS 05/13/20 12:00:00 AM EDT MED[facility] ([facility]) OFFICE OUTPATIENT VISIT 15 MINUTES 04/29/2021 12:00:00 AM EDT MEDENT ([facility], ) THERAPEUTIC PX 1/> AREAS EACH 15 MIN EXERCISES 12:00:00 AM EDT MED[facility] ([facility]) THERAPEUTIC PX 1/> AREAS EACH 15 MIN EXERCISES 021 12:00:00 AM EDT MED[facility] ([facility]) Inject/Drain Arthrocentesis Major Joint/Bursa/Ganglion Cyst 04/15/2021 12:00:00 AM EDT [facility] OFFICE OUTPATIENT VISIT 25 MINUTES 04/15/2021 12:00:00 AM EDT MEDENT ([facility], ) APPLICATION MODALITY 1/> AREAS HOT/COLD PACKS 04/15/20 21 12:00:00 AM EDT MED[facility] ([facility] ) THERAPEUTIC PX 1/> AREAS EACH 15 MIN EXERCISES 021 12:00:00 AM EDT MED[facility] ([facility]) OFFICE OUTPATIENT NEW 45 MINUTES 04/03/2021 12:00:00 A M EDT MEDENT ([facility], ) APPLICATION MODALITY 1/> AREAS HOT/COLD PACKS 04/01/20 21 12:00:00 AM EDT MED[facility] ([facility]) THERAPEUTIC PX 1/> AREAS EACH 15 MIN EXERCISES 021 12:00:00 AM EDT MED[facility] ([facility]) OFFICE OUTPATIENT VISIT 15 MINUTES 03/31/2021 12:00:00 AM EDT MEDENT ([facility], ) OFFICE OUTPATIENT VISIT 15 MINUTES 03/27/2021 12:00:00 AM EDT MEDENT ([facility], ) Physical Therapy Eval - Low Complexity 03/23/2021 12:0 0:00 AM EDT MED[facility] ([facility]) Brief Individual Psychotherapy - 30 min 02/18/2021 12:00:00 AM EDT - 02/18/2021 12:00:00 AM EDT [facility] ([facility]) Brief Individual Psychotherapy - 30 min 02/18/2021 12: 00:00 AM EDT [facility] ([facility]) Inject/Drain Arthrocentesis Major Joint/Bursa/Ganglion Cyst 02/17/2021 12:00:00 AM EDT MEDENT ([facility], ) OFFICE OUTPATIENT VISIT 25 MINUTES 02/17/2021 12:00:00 AM EDT MEDENT ([facility], ) OFFICE OUTPATIENT NEW 45 MINUTES 01/07/2021 12:00:00 A M EDT MEDENT ([facility], ) OFFICE OUTPATIENT VISIT 15 MINUTES 01/01/2021 12:00:00 AM EDT MEDENT ([facility], ) Psychiatric Diagnostic Evaluation (Non-Medical) 12/26/2020 12:00:00 AM EST - 12/26/2020 12:00:00 AM EST [facility] ([facility]) Psychiatric Diagnostic Evaluation (Non-Medical) 2020 12:00:00 AM EST [facility] ([facility]) Brief Individual Psychotherapy - 30 min 12/08/2020 12:00:00 AM EST - 12/08/2020 12:00:00 AM EST [facility] ([facility]) Brief Individual Psychotherapy - 30 min 12/08/2020 12: 00:00 AM EST [facility] ([facility]) THERAPEUTIC PX 1/> AREAS EACH 15 MIN EXERCISES 021 12:00:00 AM EST MED[facility] ([facility]) Physical Therapy Eval - Low Complexity 11/17/2020 12:0 0:00 AM EST MEDENT ([facility]) OFFICE OUTPATIENT VISIT 15 MINUTES 10/27/2020 12:00:00 AM EST [facility] ([facility]) THERAPEUTIC PX 1/> AREAS EACH 15 MIN EXERCISES 020 12:00:00 AM EST MEDENT ([facility]) Physical Therapy Eval - Low Complexity 09/22/2020 12:0 0:00 AM EST MEDENT ([facility]) Results ID Date Data Source [id number] 01/14/2021 10:40:00 AM EDT [facility]) Name Value Range Interpretation Code Description Data Cindy rce(s) Supporting Document(s) total 25(oh) vitamin D 15.7 NG/mL 30.0-100.0 Below low normal T otal 25(Oh) Vitamin D [facility]) ID Date Data Source [id number] 01/14/2021 10:40:00 AM EDT [facility]) Name Value Range Interpretation Code Description Data Cindy rce(s) Supporting Document(s) thyroid stimulating hormone 1.960 uIU/mL 0.358-3.740 Thyroid Stimulating Hormone FREDONIA ([facility]) free T4 0.94 NG/dL 0.76-1.46 Free T4 LOTUS ([facility]) ID Date Data Source [id number] 01/14/2021 10:40:00 AM EDT LOTUS ([facility]) Name Value Range Interpretation Code Description Data Cindy rce(s) Supporting Document(s) triglycerides level 136 mg/dL <150 Triglycerides Le ellen LOTUS ([facility]) Cholesterol in LDL [Mass/volume] in Serum or Plasma 147 mg/dL <100 Above high normal LDL Cholesterol LOTUS ([facility]) non-HDL-C 174 mg/dL Non-hdl-c LOTUS ([facility]) HDL cholesterol 48 mg/dL >40 HDL Cholesterol ATHE ([facility]) cholesterol level 222 mg/dL <200 Above high normal Cholesterol Level LOTUS ([facility]) cholesterol risk ratio <5 Cholesterol R isk Ratio FREDONIA ([facility]) ID Date Data Source [id number] 01/14/2021 10:40:00 AM EDT FREDONIA ([facility]) Name Value Range Interpretation Code Description Data Cindy rce(s) Supporting Document(s) glucose, fasting 86 mg/dL 70-100 Glucose, Fasting AT [facility] ([facility]) creatinine for GFR 0.70 mg/dL 0.55-1.30 Creatinine for GF R LOTUS ([facility]) blood urea nitrogen 16 mg/dL 7-18 Blood Urea Nitro gen LOTUS ([facility]) potassium serum 4.5 mEq/L 3.5-5.1 Potassium Serum ATHE ([facility]) glomerular filtration rate > 60.0 >58 Glomerula r Filtration Rate LOTUS ([facility]) chloride level 104 mEq/L 98-107 Chloride Level FREDONIA ([facility]) sodium level 138 mEq/L 136-145 Sodium Level LOTUS ([facility]) anion gap 6 mEq/L 8-16 Below low normal Anion Gap LOTUS ( [facility]) carbon dioxide level 28 mEq/L 21-32 Carbon Dioxide Level LOTUS ([facility]) calcium level 9.8 mg/dL 8.5-10.1 Calcium Level LOTUS ( [facility]) AST/SGOT 9 U/L 7-37 AST/SGOT LOTUS ([facility]) alkaline phosphatase 125 U/L 45-117 Above high normal Alkaline Phosphatase LOTUS ([facility]) bilirubin,total 0.2 mg/dL 0.2-1.0 Bilirubin,total ATHE NA ([facility]) ALT/SGPT 23 U/L 12-78 ALT/SGPT LOTUS ([facility]) albumin/globulin ratio 1.2-2.2 Below low normal Albumin /globulin Ratio LOTUS ([facility]) albumin 3.4 gm/dL 3.2-5.2 Albumin LOTUS ([facility]) total protein 7.7 gm/dL 6.4-8.2 Total Protein LOTUS ( [facility]) ID Date Data Source [id number] 01/14/2021 10:40:00 AM EDT LOTUS ([facility]) Name Value Range Interpretation Code Description Data Cindy rce(s) Supporting Document(s) Hemoglobin A1c/Hemoglobin.total in Blood 5.4 % Hemoglobin a1C LOTUS ([facility]) estimated average glucose 108 mg/dL 60-110 Estimated Average Glucose LOTUS ([facility]) ID Date Data Source [id number] 01/14/2021 10:40:00 AM EDT LOTUS ([facility]) Name Value Range Interpretation Code Description Data Cindy rce(s) Supporting Document(s) white blood count 10.5 10 4.0-10.0 Above high normal White Blood Count LOTUS ([facility]) red blood count 4.90 10 4.00-5.40 Red Blood Count ATHE NA ([facility]) hemoglobin 12.6 g/dL 12.0-15.5 Hemoglobin LOTUS ([facility]) hematocrit 41.2 % 36.0-47.0 Hematocrit LOTUS ([facility]) mean corpuscular HGB conc 30.6 g/dL 32.0-36.5 Below low jennifer l Mean Corpuscular HGB Conc LOTUS ([facility]) mean corpuscular hemoglobin 25.7 pg 27.0-33.0 Below low nor mal Mean Corpuscular Hemoglobin LOTUS ([facility]) mean corpuscular volume 84.1 fL 80.0-96.0 Mean Corpusc ular Volume LOTUS ([facility]) neutrophils % 63.2 % 36.0-66.0 Neutrophils % FREDONIA ( [facility]) platelet count, automated 298 10 150-450 Platelet C ount, Automated LOTUS ([facility]) red cell distribution width 14.4 % 11.5-14.5 Red Cell Distribution Width FREDONIA ([facility]) lymph % 27.4 % 24.0-44.0 Lymph % FREDONIA ([facility]) mono % 6.7 % 2.0-8.0 [place] % LOTUS ([facility]) eos % 1.9 % 0.0-3.0 Eos % FREDONIA ([facility]) nucleated red blood cell % 0.0 % 0-0 Nucleated Red Blood Cell % LOTUS ([facility]) baso % 0.5 % 0.0-1.0 Baso % FREDONIA ([facility]) immature granulocyte % 0.3 % 0-3.0 Immature Gran ulocyte % FREDONIA ([facility]) mono # 0.7 10 0.0-0.8 [place] # LOTUS ([facility]) neutrophils # 6.6 10 1.5-8.5 Neutrophils # LOTUS ( [facility]) lymph # 2.9 10 1.5-5.0 Lymph # LOTUS ([facility]) baso # 0.1 10 0.0-0.2 Baso # LOTUS ([facility]) eos # 0.2 10 0.0-0.5 Eos # LOTUS ([facility]) ID Date Data Source [id number] 09/04/2020 12:00:00 AM EST [facility] Gelacio Katz MD Patient Name: BEAU [id number] [facility] Date of : 1975Suite Date of Exam: 09/04/2020JESUS Hensley [id number]#: Fax: [phone] EXAM: MRI KNEE LEFT WITHOUT [...] Other findings as described above.Accredited by the [employer] in MR.Ely Black, HERBERT/Jose Alfredo klein for referring ELIZABETH SANTOS to our office. Electronically Signed - ELY BLACK DO 09/05/20 16:48 Name Value Range Interpretation Code Description Data Cindy rce(s) Supporting Document(s) Procedure Social History Code Duration Value Status Description Data Source(s ) Smoking 08/21/2021 12:00:00 AM EDT Non Smoker completed Non Smoke r MEDENT ([facility]) Smoking 02/18/2021 12:00:00 AM EDT Never smoker completed Never s moker [facility] ([facility]) Smoking 12/26/2020 12:00:00 AM EST Never smoker completed Never s moker [facility] ([facility]) Smoking 12/08/2020 12:00:00 AM EST Never smoker completed Never s moker [facility] ([facility]) Vital Signs ID Date Data Source UNK Name Value Range Interpretation Code Description Data Source(s) Body temperature 96.9 [degF] 96.9 [degF] MEDENT ([facility]) Body temperature 98.0 [degF] 98.0 [degF] MED[facility] ([facility]) Body temperature 98.0 [degF] 98.0 [degF] MED[facility] ([facility]) Body temperature 98.1 [degF] 98.1 [degF] MED[facility] ([facility]) Body surface area Derived from formula 2.15 m2 2.15 m2 [facility] ([facility]) Body height 62 [in_i] 62 [in_i] [facility] 5'2" Body weight 263.50 [lb_av] 263.50 [lb_av] MEDEN T ([facility]) Body mass index (BMI) [Ratio] 48.2 kg/m2 48.2 k g/m2 [facility] ([facility]) [place] body weight 110 [lb_av] 110 [lb_av] MEDEN T ([facility]) Body weight 119.524 kg 119.524 kg [facility] ([facility]) Body temperature 97.5 [degF] 97.5 [degF] [facility] ([facility]) Body weight 120.204 kg 120.204 kg [facility] ([facility]) Body surface area Derived from formula 2.22 m2 2.22 m2 [facility] ([facility]) Body height 64.5 [in_i] 64.5 [in_i] [facility] ([facility]) 5'4.50" Body weight 265.00 [lb_av] 265.00 [lb_av] MEDEN T ([facility]) Body mass index (BMI) [Ratio] 44.8 kg/m2 44.8 k g/m2 [facility] ([facility]) [place] body weight 120 [lb_av] 120 [lb_av] MEDEN T ([facility]) Systolic blood pressure 140 mm[Hg] 140 mm[Hg] [facility] ([facility]) Diastolic blood pressure 65 mm[Hg] 65 mm[Hg] [facility] ([facility]) Heart rate 82 /min 82 /min [facility] ([facility]) Oxygen saturation in Arterial blood by Pulse oximetry 98 % 98 % [facility] ([facility]) Respiratory rate 16 /min 16 /min [facility] ( [facility]) Body temperature 96.8 [degF] 96.8 [degF] [facility] ([facility]) Body height 64.5 [in_i] 64.5 [in_i] [facility] ([facility]) 5'4.50" Body weight 279.00 [lb_av] 279.00 [lb_av] MEDEN T ([facility]) Body mass index (BMI) [Ratio] 47.1 kg/m2 47.1 k g/m2 [facility] ([facility]) [place] body weight 120 [lb_av] 120 [lb_av] MEDEN T ([facility]) Body weight 126.554 kg 126.554 kg MED[facility] ([facility]) Body surface area Derived from formula 2.27 m2 2.27 m2 [facility] ([facility]) Body height 62 [in_i] 62 [in_i] LOTUS ([facility]) Body height 64.5 [in_i] 64.5 [in_i] MEDENT ([facility]) 5'4.50" Body weight 279.00 [lb_av] 279.00 [lb_av] MEDEN T ([facility]) Body mass index (BMI) [Ratio] 47.1 kg/m2 47.1 k g/m2 [facility] ([facility]) [place] body weight 120 [lb_av] 120 [lb_av] MEDEN T ([facility]) Body weight 126.554 kg 126.554 kg [facility] ([facility]) Body surface area Derived from formula 2.27 m2 2.27 m2 [facility] ([facility]) Oxygen saturation in Arterial blood by Pulse oximetry 99 % 99 % [facility] ([facility]) Body height 64.5 [in_i] 64.5 [in_i] MEDENT ([facility]) 5'4.50" Body weight 279.50 [lb_av] 279.50 [lb_av] MEDEN T ([facility]) Systolic blood pressure 126 mm[Hg] 126 mm[Hg] EDENT ([facility]) Diastolic blood pressure 78 mm[Hg] 78 mm[Hg] [facility] ([facility]) Heart rate 83 /min 83 /min [facility] ([facility]) Body surface area Derived from formula 2.27 m2 2.27 m2 [facility] ([facility]) [place] body weight 120 [lb_av] 120 [lb_av] MEDEN T ([facility]) Body weight 126.781 kg 126.781 kg [facility] ([facility], ) Body mass index (BMI) [Ratio] 47.2 kg/m2 47.2 k g/m2 [facility] ([facility], ) Diastolic blood pressure 87 mm[Hg] 87 mm[Hg] LOTUS ([facility]) Body height 62 [in_i] 62 [in_i] LOTUS ([facility]) Body mass index (BMI) [Ratio] 50.9 kg/m2 50.9 k g/m2 LOTUS ([facility]) Systolic blood pressure 130 mm[Hg] 130 mm[Hg] A THENA ([facility]) Body weight 4450 [oz_av] 4450 [oz_av] LOTUS ([facility]) Diastolic blood pressure 87 mm[Hg] 87 mm[Hg] LOTUS ([facility]) Body height 62 [in_i] 62 [in_i] LOTUS ([facility]) Body mass index (BMI) [Ratio] 50.9 kg/m2 50.9 k g/m2 LOTUS ([facility]) Systolic blood pressure 130 mm[Hg] 130 mm[Hg] A THENA ([facility]) Body weight 4450 [oz_av] 4450 [oz_av] LOTUS ([facility]) Diastolic blood pressure 87 mm[Hg] 87 mm[Hg] LOTUS ([facility]) Body height 62 [in_i] 62 [in_i] LOTUS ([facility]) Body mass index (BMI) [Ratio] 50.9 kg/m2 50.9 k g/m2 LOTUS ([facility]) Systolic blood pressure 130 mm[Hg] 130 mm[Hg] A THENA ([facility]) Body weight 4450 [oz_av] 4450 [oz_av] LOTUS ([facility]) Body temperature 96.9 [degF] 96.9 [degF] MEDLOVE ([facility], ) Body height 64.5 [in_i] 64.5 [in_i] MARGARET ([facility], ) 5'4.50" Body weight 275.00 [lb_av] 275.00 [lb_av] SOLOMON Merino ([facility]) Body mass index (BMI) [Ratio] 46.5 kg/m2 46.5 k g/m2 [facility] ([facility]) [place] body weight 120 [lb_av] 120 [lb_av] MEDEN T ([facility]) Body weight 124.740 kg 124.740 kg [facility] ([facility]) Body surface area Derived from formula 2.25 m2 2.25 m2 [facility] ([facility]) Systolic blood pressure 142 mm[Hg] 142 mm[Hg] EDENT ([facility]) Diastolic blood pressure 86 mm[Hg] 86 mm[Hg] [facility] ([facility]) Heart rate 72 /min 72 /min [facility] ([facility]) Oxygen saturation in Arterial blood by Pulse oximetry 98 % 98 % [facility] ([facility]) Body temperature 98.1 [degF] 98.1 [degF] [facility] ([facility]) Body height 62 [in_i] 62 [in_i] [facility] ([facility]) 5'2" Body weight 280.31 [lb_av] 280.31 [lb_av] MEDEN T ([facility]) Body mass index (BMI) [Ratio] 51.3 kg/m2 51.3 k g/m2 [facility] ([facility]) [place] body weight 110 [lb_av] 110 [lb_av] MEDEN T ([facility]) Body weight 127.150 kg 127.150 kg [facility] ([facility]) Body surface area Derived from formula 2.21 m2 2.21 m2 [facility] ([facility]) Body temperature 97.8 [degF] 97.8 [degF] [facility] ([facility]) Body weight 275.00 [lb_av] 275.00 [lb_av] MEDEN T ([facility]) Body height 62 [in_i] 62 [in_i] [facility] ([facility]) 5'2" Body mass index (BMI) [Ratio] 50.3 kg/m2 50.3 k g/m2 MARGARET ([facility], ) [place] body weight 110 [lb_av] 110 [lb_av] SOLOMON Merino ([facility], ) Body weight 124.740 kg 124.740 kg MARGARET ([facility], ) Patient Treatment Plan of Care Planned Activity Planned Date Details Description Data Source (s) Amoxicillin 875 MG Oral Tablet LOTUS ([facility]) Amoxicillin 875 MG Oral Tablet LOTUS ([facility]) Amoxicillin 875 MG Oral Tablet LOTUS ([facility])
[2021-09-05 13:11] LABS: RSV AMPLIFICATION NEGATIVE (NEGATIVE)
--- OUTSIDE RECORDS SUMMARY | 2021-09-05 13:51 | CCD ---
Author Author [facility] Organization [facility] Address Unknown Phone Unavailable Care Team Providers Care Frame Straightener Name Role Phone Byron, Syeda INFORMATICS PHYSICIAN LIAISON INFORMATICS PHYSICIAN LIAISON Unavailable Unavailable Mollison, Geoff Brizuela MD Unavailable [...] Brizuela MD Unavailable Unavailable Byron, A Syeda INFORMATICS PHYSICIAN LIAISON Unavailable Unavailable Orestes, A Syeda INFORMATICS PHYSICIAN LIAISON Unavailable Unavailable Orestes, A Syeda INFORMATICS PHYSICIAN LIAISON Unavailable Unavailable Orestes, A Syeda INFORMATICS PHYSICIAN LIAISON Unavailable Unavailable Orestes, A Syeda INFORMATICS PHYSICIAN LIAISON Unavailable Unavailable Orestes, A Syeda INFORMATICS PHYSICIAN LIAISON Unavailable Unavailable Orestes, A Syeda INFORMATICS PHYSICIAN LIAISON Unavailable Unavailable Orestes, A Syeda INFORMATICS PHYSICIAN LIAISON Unavailable Unavailable Orestes, A Syeda INFORMATICS PHYSICIAN LIAISON Unavailable Unavailable Orestes, A Syeda INFORMATICS PHYSICIAN LIAISON Unavailable Unavailable Orestes, A Syeda INFORMATICS PHYSICIAN LIAISON Unavailable Unavailable Orestes, A Syeda INFORMATICS PHYSICIAN LIAISON Unavailable Unavailable Orestes, A Syeda INFORMATICS PHYSICIAN LIAISON Unavailable Unavailable Orestes, A Syeda INFORMATICS PHYSICIAN LIAISON Unavailable Unavailable Orestes, A Syeda INFORMATICS PHYSICIAN LIAISON Unavailable Unavailable Orestes, A Syeda INFORMATICS PHYSICIAN LIAISON Unavailable Unavailable Orestes, A Syeda INFORMATICS PHYSICIAN LIAISON Unavailable Unavailable Orestes, A Syeda INFORMATICS PHYSICIAN LIAISON Unavailable Unavailable Orestes, A Syeda INFORMATICS PHYSICIAN LIAISON Unavailable Unavailable Orestes, A Syeda INFORMATICS PHYSICIAN LIAISON Unavailable Unavailable Orestes, A Syeda INFORMATICS PHYSICIAN LIAISON Unavailable Unavailable Orestes, A Syeda INFORMATICS PHYSICIAN LIAISON Unavailable Unavailable Orestes, A Syeda INFORMATICS PHYSICIAN LIAISON Unavailable Unavailable Orestes, A Syeda INFORMATICS PHYSICIAN LIAISON Unavailable Unavailable Orestes, A Syeda INFORMATICS PHYSICIAN LIAISON Unavailable Unavailable Orestes, A Syeda INFORMATICS PHYSICIAN LIAISON Unavailable Unavailable Orestes, A Syeda INFORMATICS PHYSICIAN LIAISON Unavailable Unavailable Orestes, A Syeda INFORMATICS PHYSICIAN LIAISON Unavailable Unavailable Byron, A Syeda INFORMATICS PHYSICIAN LIAISON Unavailable Unavailable Byron, A Syeda INFORMATICS PHYSICIAN LIAISON Unavailable Unavailable Byron, A Syeda INFORMATICS PHYSICIAN LIAISON Unavailable Unavailable Lionel Rama Unavailable Serjio, Jameson BARRETO Unavailable Unavailable Bassett, Jameson BARRETO Unavailable Unavailable Bassett, Jameson BARRETO Unavailable Unavailable Bassett, Jameson BARRETO Unavailable Unavailable Bassett, Jameson BARRETO Unavailable Unavailable Serjio, Jameson BARRETO Unavailable Unavailable Bassett, Jameson BARRETO Unavailable Unavailable Bassett, Jameson BARRETO Unavailable Unavailable Bassett, Jameson BARRETO Unavailable Unavailable Bassett, Jameson BARRETO Unavailable Unavailable Igor Snyderkareni Unavailable Byron, A Syeda INFORMATICS PHYSICIAN LIAISON Unavailable Unavailable Orestes, A Syeda INFORMATICS PHYSICIAN LIAISON Unavailable Unavailable Orestes, A Syeda INFORMATICS PHYSICIAN LIAISON Unavailable Unavailable Orestes, A Syeda INFORMATICS PHYSICIAN LIAISON Unavailable Unavailable Orestes, A Syeda INFORMATICS PHYSICIAN LIAISON Unavailable Unavailable Orestes, A Syeda INFORMATICS PHYSICIAN LIAISON Unavailable Unavailable Orestes, A Syeda INFORMATICS PHYSICIAN LIAISON Unavailable Unavailable Orestes, A Syeda INFORMATICS PHYSICIAN LIAISON Unavailable Unavailable Orestes, A Syeda INFORMATICS PHYSICIAN LIAISON Unavailable Unavailable Orestes, A Syeda INFORMATICS PHYSICIAN LIAISON Unavailable Unavailable Orestes, A Syeda INFORMATICS PHYSICIAN LIAISON Unavailable Unavailable Orestes, A Syeda INFORMATICS PHYSICIAN LIAISON Unavailable Unavailable Orestes, A Syeda INFORMATICS PHYSICIAN LIAISON Unavailable Unavailable Orestes, A Syeda INFORMATICS PHYSICIAN LIAISON Unavailable Unavailable Orestes, A Syeda INFORMATICS PHYSICIAN LIAISON Unavailable Unavailable Orestes, A Syeda INFORMATICS PHYSICIAN LIAISON Unavailable Unavailable Orestes, A Syeda INFORMATICS PHYSICIAN LIAISON Unavailable Unavailable Orestes, A Syeda INFORMATICS PHYSICIAN LIAISON Unavailable Unavailable Orestes, A Syeda INFORMATICS PHYSICIAN LIAISON Unavailable Unavailable Orestes, A Syeda INFORMATICS PHYSICIAN LIAISON Unavailable Unavailable Orestes, A Syeda INFORMATICS PHYSICIAN LIAISON Unavailable Unavailable Orestes, A Syeda INFORMATICS PHYSICIAN LIAISON Unavailable Unavailable Orestes, A Syeda INFORMATICS PHYSICIAN LIAISON Unavailable Unavailable Orestes, A Syeda INFORMATICS PHYSICIAN LIAISON Unavailable Unavailable Orestes, A Syeda INFORMATICS PHYSICIAN LIAISON Unavailable Unavailable Orestes, A Syeda INFORMATICS PHYSICIAN LIAISON Unavailable Unavailable Orestes, A Syeda INFORMATICS PHYSICIAN LIAISON Unavailable Unavailable Orestes, A Syeda INFORMATICS PHYSICIAN LIAISON Unavailable Unavailable Orestes, A Syeda INFORMATICS PHYSICIAN LIAISON Unavailable Unavailable Orestes, A Syeda INFORMATICS PHYSICIAN LIAISON Unavailable Unavailable Orestes, A Syeda INFORMATICS PHYSICIAN LIAISON Unavailable Unavailable Annabelle SWARTZ MD Unavailable Unavailable [...] Unavailable Annabelle SWARTZ MD Unavailable Unavailable Annabelle SWARZT MD Unavailable Unavailable Annabelle SWARTZ MD Unavailable [...] is protected by Article 27-F of the [facility] Public Health law. If you continue you may have access to information: Regarding HIV / AIDS; Provided by facilities licensed or operated by the [facility] Office of Mental Health; or Provided by the [facility] Office for People With Developmental Disabilities. If such information is present, then the following [facility] mandated warning applies: This information has [...] law may result in a fine or senior living sentence or both. A general authorization for [...] Swartz/[place]/Shane jeffrey 06/30/2021 01:00:00 PM EDT [facility] ([facility]) Outpatient Attender: Jameson Swartz/[place] 04/29/2021 01:30:00 PM EDT [facility] ([facility]) Outpatient Attender: Jameson Swartz/[place] 04/15/2021 03:30:00 PM EDT [facility] ([facility]) Outpatient Attender: Jameson Swartz/[place] 04/03/2021 02:00:00 PM EDT [facility] ([facility]) Outpatient Attender: Gelacio Swartz/[place]/Re indl 03/31/2021 01:00:00 PM EDT [facility] ([facility]) Outpatient Attender: MAURICIO Swartz/[place]/Reind l 03/27/2021 11:00:00 AM EDT [facility] ([facility]) Brief Individual Psychotherapy - 30 min Attender: [facility] 02/18/2021 02:00:00 AM EDT - 02/18/2021 02:00:00 AM EDT [facility] ([facility]) Attender: Galina Snyder 02/18/2021 12:00:00 AM EDT [facility] ([facility]) Outpatient Attender: Gelacio Swartz/[place]/Re indl 02/17/2021 11:30:00 AM EDT [facility] ([facility]) HERLINDA Sauer-BC: [address] [place] [address], Ph. Attender: Syeda PATE [facility] Medical 01/20/2021 12:00:00 AM EDT [facility] ([facility]) HERLINDA Sauer-BC: [address] [place] [address], Ph. [facility]: [facility] 01/14/2021 12:00:00 AM EDT [facility] ([facility]) NIELS SauerBC: [address] [place] [address], Ph. Attender: Syeda Matthews [facility] Medical 01/14/2021 12:00:00 AM EDT [facility] ([facility]) Outpatient Attender: MAURICIO Swartz/[place]/Reind l 01/07/2021 09:30:00 AM EDT [facility] ([facility]) Outpatient Attender: NBA Swartz/[place]/Re[place] dl 01/01/2021 12:30:00 PM EDT [facility] ([facility]) Psychiatric Diagnostic Evaluation (Non-Medical) Attender: Igor Snyder [facility] 12/26/2020 11:00:00 AM EST - 12/26/2020 11:00:00 AM EST [facility] ([facility]) Attender: Galina Snyder 12/26/2020 12:00:00 AM EST [facility] ([facility]) Brief Individual Psychotherapy - 30 min Attender: Rama shirley [facility] 12/08/2020 09:45:00 AM EST - 12/08/2020 09:45:00 AM EST [facility] ([facility]) Attender: Rama Flowers 12/08/2020 12:00:00 AM EST [facility] ([facility]) FRANSISCO Sauer: [address] [place] [address], Ph. [facility]: [facility] 12/02/2020 12:00:00 AM EST [facility] ([facility]) FRANSISCO Sauer: [address] [place] [address], Ph. Attender: Syeda Matthews [facility] Medical 12/02/2020 12:00:00 AM EST [facility] ([facility]) HERLINDA Sauer-BC: [address] [place] [address], Ph. Attender: Syeda Matthews [facility] Medical 12/02/2020 12:00:00 AM EST [facility] ([facility]) Outpatient Attender: Gelacio Swartz/[place]/Re indl 10/27/2020 09:45:00 AM EST [facility] ([facility]) Outpatient Attender: NBA Swartz/[place] 09/19/2020 09:00:00 AM EST [facility] ([facility]) Outpatient Attender: Gelacio Swartz/[place]/Re indl 08/19/2020 12:10:00 PM EST [facility] ([facility]) [facility]: [facility] 08/06/2020 10:31:01 A M EDT [facility] Outpatient [facility]: [facility] 08/04/2020 03:5 0:01 PM EDT [facility] Outpatient [facility]: [facility] 07/23/2020 09:37:01 A M EDT [facility] Unknown [address] [facility] [address] 07/18/2020 12:00:00 AM EDT eCW1 ([facility]) Immunizations Vaccine Date Status Description Data Source(s) COVID-19 VACCINE Moderna 11/20/2020 12:00:00 AM EST completed [facility] Vaccine Series Complete: YESThis Data wa s Submitted to [facility] Via [facility]. COVID-19 VACCINE Moderna 10/23/2020 12:00:00 AM EST completed [facility] Vaccine Series Complete: NOThis Data was Submitted to [facility] Via [employer]. Medications Medication Brand Name Start Date Product Form Dose Route Admi nistrative Instructions Pharmacy Instructions Status Indications Reaction Description Data Source(s) Sodium Chloride 0.111 MEQ/ML Nasal Solution Saline Nasal Spr ay 03/27/2021 12:00:00 AM EDT active M [facility] ([facility], ) CPAP 10/16/2020 12:00:00 AM EST active [facility] ([facility], ) Amoxicillin 875 MG Oral Tablet amoxicill in 875 mg tablet TAKE 1 TABLET BY MOUTH EVERY 12 HOURS FOR 10 DAYS amoxicillin 875 mg tablet TAKE 1 TABLET BY MOUTH EVERY 12 HOURS FOR 10 DAYS completed amoxicillin 875 MG Oral Tablet [facility] ([facility]) Amoxicillin 875 MG Oral Tablet amoxicill in 875 mg tablet TAKE 1 TABLET BY MOUTH EVERY 12 HOURS FOR 10 DAYS amoxicillin 875 mg tablet TAKE 1 TABLET BY MOUTH EVERY 12 HOURS FOR 10 DAYS completed amoxicillin 875 MG Oral Tablet [facility] ([facility]) Amoxicillin 875 MG Oral Tablet amoxicill in 875 mg tablet TAKE 1 TABLET BY MOUTH EVERY 12 HOURS FOR 10 DAYS amoxicillin 875 mg tablet TAKE 1 TABLET BY MOUTH EVERY 12 HOURS FOR 10 DAYS completed amoxicillin 875 MG Oral Tablet [facility] ([facility]) Insurance Providers Payer name Policy type / Coverage type Policy ID Covered democrat ID Covered democrat's relationship to smith Policy Smith Plan Information MEDICARE [id number] SP [id number] [place] [id number] Self [id number] [place] Primary [id number] Self [id number] Medicare C [id number] SELF [id number] Medicaid [facility] S D [id number] SELF [id number] Medicare C [id number] SELF [id number] DME Jurisdiction A [facility] C [id number] SELF [id number] MEDICARE [id number] SP [id number] MEDICARE [id number] SP [id number] MEDICAID [id number] SP [id number] MEDICAID [id number] SP [id number] Medicaid [place] Med[place] Part [place] [id number] 2.0.1.321053.3.227.99 .991.913356.0 Self [id number] Medicaid [place] Med[place] Part [place] [id number] 2.840.1.765156.3.227.99 .991.807987.0 Self [id number] [place] Med[place] Part [place] [id number] 2.0.1.301596.3.227.99 .991.860145.0 Self [id number] [place] Med[place] Part [place] [id number] 2.0.1.741621.3.227.99 .991.020286.0 Self [id number] [place] Primary [id number] 2.0.1.159847.3.227.99.991.600390.0 Self [id number] [place] Med[place] B [id number] 2.0.1.462547.3.227.99.991.335735.0 Self [id number] [place] Med[place] [id number] 2.0.1.232473.3.227.99.991.262748.0 Self [id number] [place] Med[place] B [id number] 2.0.1.925296.3.227.99.991.644748.0 Self [id number] Medicaid [place] Med[place] Part B [id number] 2.0.1.700919.3.227.99 .991.018825.0 Self [id number] [place] Med[place] B [id number] 2.0.1.419359.3.227.99.991.132712.0 Self [id number] Medicaid [place] Med[place]ap Part B [id number] 2.0.1.876426.3.227.99 .991.266196.0 Self [id number] [place] Med[place] B [id number] 2.0.1.137239.3.227.99.991.741055.0 Self [id number] [place] Med[place] [id number] 2.0.1.976307.3.227.99.991.249074.0 Self [id number] Medicaid [place] Medigap Part B [id number] 2.0.1.972643.3.227.99 .991.940712.0 Self [id number] Medicaid [place] Medigap Part B [id number] 2.0.1.261924.3.227.99 .991.541847.0 Self [id number] [place] Medicare Primary [id number] 2.0.1.347569.3.227.99.991.051335.0 Self [id number] [place] Med[place] B [id number] 2.0.1.466196.3.227.99.991.347170.0 Self [id number] [place] Med[place] [id number] 2.0.1.780456.3.227.99.991.094655.0 Self [id number] Medicaid [place] Med[place] Part [place] [id number] 2.0.1.408819.3.227.99 .991.356399.0 Self [id number] Medicaid [place] Med[place] [id number] 2.0.1.244043.3.227.99 .991.241730.0 Self [id number] Medicaid [place] Medigap Part [place] [id number] 2.0.1.322643.3.227.99 .991.185829.0 Self [id number] [place] Primary [id number] 2.0.1.722118.3.227.99.991.646617.0 Self [id number] [employer] [id number] 2.16.840.1.395132.3.227.99.991.217212.0 Self [id number] [employer] [employer] Compensation [id number] 2.16.840.1.936964.3.227.99.991.534844.0 Self [id number] [employer] [employer] Compensation [id number] 2.16.840.1.372940.3.227.99.991.527804.0 Self [id number] Medicaid [place] Medicaid [id number] Self [id number] [place] [id number] Self [id number] MEDICAID [id number] SP [id number] Medicare P [id number] S [id number] Medicaid S [id number] S [id number] ANSI-Medicaid [id number] ANSI-Medicare Part B [id number] ANSI-Medicare Part B [id number] ANSI-Medicaid [id number] ANSI-Medicaid [id number] ANSI-Medicare Part B [id number] [facility]-Medicaid [id number] [place] [id number] [place] [id number] ANSI-Medicare Part B [id number] [place] Primary [id number] 2.0.1.561758.3.227.99.991.481118.0 Self [id number] MEDICARE C [id number] S [id number] MEDICAID [place] [id number] 18 [id number] MEDICARE PART A [facility] [id number] 18 [id number] Medicaid [place] Medicaid [id number] 2.0.1.681745.3.227.99.510.7178.0 Self [id number] Medicare Part A [place] Medicare Primary [id number] 2.160.1.589362.3.227.99.510.7178.0 Self 05 [id number] [employer] NO FAULT O [id number] S [id number] [place] Medicaid [id number] 2.160.1.042791.3.227.99.510.7178.0 Self [id number] Medicare Part A [place] Medicare Primary [id number] 2.16.840.1.128886.3.227.99.510.7178.0 Self 05 [id number] MEDICAID -O/P [id number] MEDICARE PART A -O/P [id number] 18 [id number] Medicaid [place] Medicaid [id number] 2.840.1.611896.3.227.99.510.7178.0 Self [id number] Medicare Part A [place] Medicare Primary [id number] 2.840.1.334891.3.227.99.510.7178.0 Self 05 [id number] Medicaid [place] Medicaid [id number] 2.0.1.218636.3.227.99.510.7178.0 Self [id number] Medicare Part A [place] Medicare Primary [id number] 2.0.1.551633.3.227.99.510.7178.0 Self 05 [id number] [employer] 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 [id number] SP [id number] ONE CALL CARE MANAGEMENT O [id number] S [id number] [facility] [id number] SP [id number] Medicare Natl Gov't Servi Medicare Primary [id number] 2.0.1.687515.3.227.99.1767.24761.0 Self [id number] Medicare Natl Gov't Servi Medicare Primary [id number] 2.0.1.445052.3.227.99.1767.14762.0 Self [id number] Medicaid [place] Medicaid [id number] 2.840.1.953049.3.227.99.510.7178.0 Self [id number] Medicare Part A [place] Medicare Primary [id number] 2.0.1.738971.3.227.99.510.7178.0 Self 05 [id number] MEDICAID -PHYSICIAN [id number] Medicaid [place] Medicaid [id number] 2.840.1.699637.3.227.99.510.7178.0 Self [id number] Medicare Part A [place] Medicare Primary [id number] 2.16.840.1.136381.3.227.99.510.7178.0 Self 05 [id number] Medicare Natl Gov't Servi Medicare Primary [id number] 2.16.840.1.657500.3.227.99.1767.73751.0 Self [id number] Medicaid [place] Medicaid [id number] 2.16.840.1.523066.3.227.99.510.7178.0 Self [id number] Medicare Part [place] Medicare Primary [id number] 2.16.840.1.380129.3.227.99.510.7178.0 Self 05 [id number] Medicaid [place] Medicaid [id number] 2.16.840.1.995259.3.227.99.510.7178.0 Self [id number] Medicare Part [place] Medicare Primary [id number] 2.16.840.1.797945.3.227.99.510.7178.0 Self 05 [id number] Medicaid [place] Medicaid [id number] 2.16.840.1.778721.3.227.99.510.7178.0 Self [id number] Medicare Part [place] Medicare Primary [id number] 2.16.840.1.017841.3.227.99.510.7178.0 Self 05 [id number] Medicaid [place] Medicaid [id number] 2.16.840.1.567999.3.227.99.510.7178.0 Self [id number] Medicare Part [place] Medicare Primary [id number] 2.16.840.1.881937.3.227.99.510.7178.0 Self 05 [id number] MEDICAID -CLINIC [id number] [place] Medicaid [id number] 2.16.840.1.546904.3.227.99.510.7178.0 Self [id number] Medicare Part A [place] Medicare Primary [id number] 2.16.840.1.963643.3.227.99.510.7178.0 Self 05 [id number] MED[place]ID [place] [facility] UNAVAILABLE 18 UNAVAI LABLE Medicare Part [place] Medicare Primary [id number] 2.16.840.1.152988.3.227.99.510.7178.0 Self 05 [id number] Medicare Natl Gov't Servi Medicare Primary [id number] Self MEDICARE PART A -CLINIC [id number] 18 [id number] MEDICARE -O/P [id number] 18 [id number] [facility] MEDICAID [id number] SP [id number] M MEDICAID -O/P EMERGENCY ROOM [id number] 18 [id number] MEDICARE [id number] SP [id number] EMEDNY [id number] SP [id number] MEDICARE C [id number] S [id number] MEDICAID M [id number] S [id number] MEDICAID [id number] SP [id number] Medicaid S [id number] S [id number] Self Pay P UNAVAILABLE S UNAVAILA BLE MEDICARE [id number] SP [id number] ANS-Medicare Part B [id number] ANS-Medicaid [id number] ANS-Medicaid [id number] ANS-Medicare Part B [id number] ANS-Medicare Part B [id number] ANSI-Medicaid [id number] ANSI-Medicaid [id number] ANSI-Medicare Part B [id number] [place]/[facility] Medicare Primary [id number] Self [id number] ANSI-Medicare Part B [id number] ANSI-Medicaid [id number] ANSI-Medicaid [id number] ANSI-Medicare Part B [id number] ANSI-Medicare Part B [id number] ANSI-Medicaid [id number] [facility]-Medicare Part B [id number] [facility]-Medicaid [id number] ANSI-Medicare Part B [id number] [facility]-Medicaid [id number] ANSI-Medicare Part B [id number] [facility]-Medicaid [id number] Medicare Natl Gov't Servi Medicare Primary [id number] Self [id number] MEDICARE [id number] SP [id number] Medicare [place] Med[place] B [id number] Self [id number] [place] Medicare Primary [id number] Self [id number] [place] Med[place] B [id number] Self [id number] ANSI-Medicare Part B [id number] ANSI-Medicaid [id number] ANSI-Medicaid [id number] ANSI-Medicare Part B [id number] [place] [id number] ANSI-Medicare Part B [id number] Problems, Conditions, and Diagnoses Code Display Name Description Problem Type Effective Dates Data Source(s) F41.9 Anxiety disorder, unspecified Unspecified Anxiety Diso rder Condition 02/18/2021 12:00:00 AM EDT [facility] ([facility]) G47.33 Obstructive sleep apnea syndrome Obstructive sle ep apnea syndrome Problem 09/19/2020 12:00:00 AM EST [facility] ([facility]) Surgeries/Procedures Procedure Description Date Indications Data Source(s) THERAPEUTIC PX 1/> AREAS EACH 15 MIN EXERCISES 021 12:00:00 AM EDT [facility] ([facility]) OFFICE OUTPATIENT VISIT 15 MINUTES 06/30/2021 12:00:00 AM EDT [facility] ([facility], ) OFFICE OUTPATIENT VISIT 10 MINUTES 06/30/2021 12:00:00 AM EDT [facility] ([facility], ) THERAPEUTIC PX 1/> AREAS EACH 15 MIN EXERCISES 12:00:00 AM EDT [facility] ([facility]) APPLICATION MODALITY 1/> AREAS HOT/COLD PACKS 06/10/20 12:00:00 AM EDT [facility] ([facility]) THERAPEUTIC PX 1/> AREAS EACH 15 MIN EXERCISES 12:00:00 AM EDT [facility] ([facility]) THERAPEUTIC PX 1/> AREAS EACH 15 MIN EXERCISES 12:00:00 AM EDT MEDENT ([facility]) APPLICATION MODALITY 1/> AREAS HOT/COLD PACKS 05/27/20 12:00:00 AM EDT MEDENT ([facility]) THERAPEUTIC PX 1/> AREAS EACH 15 MIN EXERCISES 12:00:00 AM EDT MEDENT ([facility]) THERAPEUTIC PX 1/> AREAS EACH 15 MIN EXERCISES 12:00:00 AM EDT MEDENT ([facility]) THERAPEUTIC PX 1/> AREAS EACH 15 MIN EXERCISES 12:00:00 AM EDT MEDENT ([facility]) APPLICATION MODALITY 1/> AREAS HOT/COLD PACKS 05/13/20 12:00:00 AM EDT MEDENT ([facility]) OFFICE OUTPATIENT VISIT 15 MINUTES 04/29/2021 12:00:00 AM EDT MEDENT ([facility], ) THERAPEUTIC PX 1/> AREAS EACH 15 MIN EXERCISES 12:00:00 AM EDT MEDENT ([facility]) THERAPEUTIC PX 1/> AREAS EACH 15 MIN EXERCISES 021 12:00:00 AM EDT MEDENT ([facility]) Inject/Drain Arthrocentesis Major Joint/Bursa/Ganglion Cyst 04/15/2021 12:00:00 AM EDT MEDENT [facility] OFFICE OUTPATIENT VISIT 25 MINUTES 04/15/2021 12:00:00 AM EDT MEDENT ([facility], ) APPLICATION MODALITY 1/> AREAS HOT/COLD PACKS 04/15/20 21 12:00:00 AM EDT MEDENT ([facility] THERAPEUTIC PX 1/> AREAS EACH 15 MIN EXERCISES 021 12:00:00 AM EDT MEDENT ([facility]) OFFICE OUTPATIENT NEW 45 MINUTES 04/03/2021 12:00:00 A M EDT MEDENT ([facility], ) APPLICATION MODALITY 1/> AREAS HOT/COLD PACKS 04/01/20 21 12:00:00 AM EDT MEDENT ([facility]) THERAPEUTIC PX 1/> AREAS EACH 15 MIN EXERCISES 021 12:00:00 AM EDT MEDENT ([facility]) OFFICE OUTPATIENT VISIT 15 MINUTES 03/31/2021 12:00:00 AM EDT MEDENT ([facility], ) OFFICE OUTPATIENT VISIT 15 MINUTES 03/27/2021 12:00:00 AM EDT MEDENT ([facility], ) Physical Therapy Eval - Low Complexity 03/23/2021 12:0 0:00 AM EDT MEDENT ([facility]) Brief Individual Psychotherapy - 30 min 02/18/2021 12:00:00 AM EDT - 02/18/2021 12:00:00 AM EDT [facility] ([facility]) Brief Individual Psychotherapy - 30 min 02/18/2021 12: 00:00 AM EDT [facility] ([facility]) Inject/Drain Arthrocentesis Major Joint/Bursa/Ganglion Cyst 02/17/2021 12:00:00 AM EDT MEDENT ([facility], ) OFFICE OUTPATIENT VISIT 25 MINUTES 02/17/2021 12:00:00 AM EDT MEDENT ([facility], ) OFFICE OUTPATIENT NEW 45 MINUTES 01/07/2021 12:00:00 A M EDT MEDENT ([facility], ) OFFICE OUTPATIENT VISIT 15 MINUTES 01/01/2021 12:00:00 AM EDT MEDENT ([facility], ) Psychiatric Diagnostic Evaluation (Non-Medical) 12/26/2020 12:00:00 AM EST - 12/26/2020 12:00:00 AM EST [facility] ([facility]) Psychiatric Diagnostic Evaluation (Non-Medical) 2020 12:00:00 AM EST [facility] ([facility]) Brief Individual Psychotherapy - 30 min 12/08/2020 12:00:00 AM EST - 12/08/2020 12:00:00 AM EST [facility] ([facility]) Brief Individual Psychotherapy - 30 min 12/08/2020 12: 00:00 AM EST [facility] ([facility]) THERAPEUTIC PX 1/> AREAS EACH 15 MIN EXERCISES 021 12:00:00 AM EST MEDENT ([facility]) Physical Therapy Eval - Low Complexity 11/17/2020 12:0 0:00 AM EST MEDENT ([facility]) OFFICE OUTPATIENT VISIT 15 MINUTES 10/27/2020 12:00:00 AM EST MEDENT ([facility]) THERAPEUTIC PX 1/> AREAS EACH 15 MIN EXERCISES 020 12:00:00 AM EST MEDENT ([facility]) Physical Therapy Eval - Low Complexity 09/22/2020 12:0 0:00 AM EST MEDENT ([facility]) Results ID Date Data Source [id number] 01/14/2021 10:40:00 AM EDT [facility]) Name Value Range Interpretation Code Description Data Cindy rce(s) Supporting Document(s) total 25(oh) vitamin D 15.7 NG/mL 30.0-100.0 Below low normal T otal 25(Oh) Vitamin D [facility]) ID Date Data Source [id number] 01/14/2021 10:40:00 AM EDT [facility]) Name Value Range Interpretation Code Description Data Cindy rce(s) Supporting Document(s) thyroid stimulating hormone 1.960 uIU/mL 0.358-3.740 Thyroid Stimulating Hormone BRIGHTON ([facility]) free T4 0.94 NG/dL 0.76-1.46 Free T4 LOTUS ([facility]) ID Date Data Source [id number] 01/14/2021 10:40:00 AM EDT LOTUS ([facility]) Name Value Range Interpretation Code Description Data Cindy rce(s) Supporting Document(s) triglycerides level 136 mg/dL <150 Triglycerides Le ellen LOTUS ([facility]) Cholesterol in LDL [Mass/volume] in Serum or Plasma 147 mg/dL <100 Above high normal LDL Cholesterol LOTUS ([facility]) non-HDL-C 174 mg/dL Non-hdl-c LOTUS ([facility]) HDL cholesterol 48 mg/dL >40 HDL Cholesterol ATHE ([facility]) cholesterol level 222 mg/dL <200 Above high normal Cholesterol Level LOTUS ([facility]) cholesterol risk ratio <5 Cholesterol R isk Ratio BRIGHTON ([facility]) ID Date Data Source [id number] 01/14/2021 10:40:00 AM EDT BRIGHTON ([facility]) Name Value Range Interpretation Code Description Data Cindy rce(s) Supporting Document(s) glucose, fasting 86 mg/dL 70-100 Glucose, Fasting AT [facility] ([facility]) creatinine for GFR 0.70 mg/dL 0.55-1.30 Creatinine for GF R LOTUS ([facility]) blood urea nitrogen 16 mg/dL 7-18 Blood Urea Nitro gen LOTUS ([facility]) potassium serum 4.5 mEq/L 3.5-5.1 Potassium Serum ATHE ([facility]) glomerular filtration rate > 60.0 >58 Glomerula r Filtration Rate LOTUS ([facility]) chloride level 104 mEq/L 98-107 Chloride Level BRIGHTON ([facility]) sodium level 138 mEq/L 136-145 Sodium Level LOTUS ([facility]) anion gap 6 mEq/L 8-16 Below low normal Anion Gap LOTUS ( [facility]) carbon dioxide level 28 mEq/L 21-32 Carbon Dioxide Level LOTUS ([facility]) calcium level 9.8 mg/dL 8.5-10.1 Calcium Level LOTUS ( [facility]) AST/SGOT 9 U/L 7-37 AST/SGOT LOTUS ([facility]) alkaline phosphatase 125 U/L 45-117 Above high normal Alkaline Phosphatase LOTUS ([facility]) bilirubin,total 0.2 mg/dL 0.2-1.0 Bilirubin,total ATHE NA ([facility]) ALT/SGPT 23 U/L 12-78 ALT/SGPT LOTUS ([facility]) albumin/globulin ratio 1.2-2.2 Below low normal Albumin /globulin Ratio LOTUS ([facility]) albumin 3.4 gm/dL 3.2-5.2 Albumin LOTUS ([facility]) total protein 7.7 gm/dL 6.4-8.2 Total Protein LOTUS ( [facility]) ID Date Data Source [id number] 01/14/2021 10:40:00 AM EDT LOTUS ([facility]) Name Value Range Interpretation Code Description Data Cindy rce(s) Supporting Document(s) Hemoglobin A1c/Hemoglobin.total in Blood 5.4 % Hemoglobin a1C LOTUS ([facility]) estimated average glucose 108 mg/dL 60-110 Estimated Average Glucose LOTUS ([facility]) ID Date Data Source [id number] 01/14/2021 10:40:00 AM EDT LOTUS ([facility]) Name Value Range Interpretation Code Description Data Cindy rce(s) Supporting Document(s) white blood count 10.5 10 4.0-10.0 Above high normal White Blood Count LOTUS ([facility]) red blood count 4.90 10 4.00-5.40 Red Blood Count ATHE NA ([facility]) hemoglobin 12.6 g/dL 12.0-15.5 Hemoglobin LOTUS ([facility]) hematocrit 41.2 % 36.0-47.0 Hematocrit LOTUS ([facility]) mean corpuscular HGB conc 30.6 g/dL 32.0-36.5 Below low jennifer l Mean Corpuscular HGB Conc LOTUS ([facility]) mean corpuscular hemoglobin 25.7 pg 27.0-33.0 Below low nor mal Mean Corpuscular Hemoglobin LOTUS ([facility]) mean corpuscular volume 84.1 fL 80.0-96.0 Mean Corpusc ular Volume LOTUS ([facility]) neutrophils % 63.2 % 36.0-66.0 Neutrophils % BRIGHTON ( [facility]) platelet count, automated 298 10 150-450 Platelet C ount, Automated LOTUS ([facility]) red cell distribution width 14.4 % 11.5-14.5 Red Cell Distribution Width BRIGHTON ([facility]) lymph % 27.4 % 24.0-44.0 Lymph % BRIGHTON ([facility]) mono % 6.7 % 2.0-8.0 Loíza % LOTUS ([facility]) eos % 1.9 % 0.0-3.0 Eos % BRIGHTON ([facility]) nucleated red blood cell % 0.0 % 0-0 Nucleated Red Blood Cell % LOTUS ([facility]) baso % 0.5 % 0.0-1.0 Baso % BRIGHTON ([facility]) immature granulocyte % 0.3 % 0-3.0 Immature Gran ulocyte % BRIGHTON ([facility]) mono # 0.7 10 0.0-0.8 [place] # LOTUS ([facility]) neutrophils # 6.6 10 1.5-8.5 Neutrophils # LOTUS ( [facility]) lymph # 2.9 10 1.5-5.0 Lymph # LOTUS ([facility]) baso # 0.1 10 0.0-0.2 Baso # LOTUS ([facility]) eos # 0.2 10 0.0-0.5 Eos # LOTUS ([facility]) ID Date Data Source [id number] 09/04/2020 12:00:00 AM EST [facility] Gel[facility] Katz MD Patient Name: BEAU SANTOSL[facility] [facility] Date of : 1975[address] Date of Exam: 09/04/2020EJS[place] [id number]#: Fax: [phone] EXAM: MRI KNEE LEFT WITHOUT [...] Other findings as described above.Accredited by the [employer] in MR.Ely Black, HERBERT/Jose Alfredo klein for referring ELIZABETH SANTOS to our office. Electronically Signed - ELY BLACK DO 09/05/20 16:48 Name Value Range Interpretation Code Description Data Cindy rce(s) Supporting Document(s) Procedure Social History Code Duration Value Status Description Data Source(s ) Smoking 08/21/2021 12:00:00 AM EDT Non Smoker completed Non Smoke r MEDENT ([facility]) Smoking 02/18/2021 12:00:00 AM EDT Never smoker completed Never s moker [facility] ([facility]) Smoking 12/26/2020 12:00:00 AM EST Never smoker completed Never s moker [facility] ([facility]) Smoking 12/08/2020 12:00:00 AM EST Never smoker completed Never s moker [facility] ([facility]) Vital Signs ID Date Data Source [id number] Name Value Range Interpretation Code Description Data Source(s) Body temperature 96.9 [degF] 96.9 [degF] MEDENT ([facility]) Body temperature 98.0 [degF] 98.0 [degF] MEDENT ([facility]) Body temperature 98.0 [degF] 98.0 [degF] MEDENT ([facility]) Body temperature 98.1 [degF] 98.1 [degF] MEDENT ([facility]) Body surface area Derived from formula 2.15 m2 2.15 m2 [facility] ([facility]) Body height 62 [in_i] 62 [in_i] [facility] 5[facility]2" Body weight 263.50 [lb_av] 263.50 [lb_av] MEDEN T ([facility]) Body mass index (BMI) [Ratio] 48.2 kg/m2 48.2 k g/m2 [facility] ([facility]) [place] body weight 110 [lb_av] 110 [lb_av] MEDEN T ([facility]) Body weight 119.524 kg 119.524 kg [facility] ([facility]) Body temperature 97.5 [degF] 97.5 [degF] [facility] ([facility]) Body weight 120.204 kg 120.204 kg [facility] ([facility]) Body surface area Derived from formula 2.22 m2 2.22 m2 [facility] ([facility]) Body height 64.5 [in_i] 64.5 [in_i] [facility] ([facility]) 5'4.50" Body weight 265.00 [lb_av] 265.00 [lb_av] MEDEN T ([facility]) Body mass index (BMI) [Ratio] 44.8 kg/m2 44.8 k g/m2 [facility] ([facility]) [place] body weight 120 [lb_av] 120 [lb_av] MEDEN T ([facility]) Systolic blood pressure 140 mm[Hg] 140 mm[Hg] [facility] ([facility]) Diastolic blood pressure 65 mm[Hg] 65 mm[Hg] [facility] ([facility]) Heart rate 82 /min 82 /min [facility] ([facility]) Oxygen saturation in Arterial blood by Pulse oximetry 98 % 98 % [facility] ([facility]) Respiratory rate 16 /min 16 /min [facility] ( [facility]) Body temperature 96.8 [degF] 96.8 [degF] [facility] ([facility]) Body height 64.5 [in_i] 64.5 [in_i] [facility] ([facility]) 5'4.50" Body weight 279.00 [lb_av] 279.00 [lb_av] MEDEN T ([facility]) Body mass index (BMI) [Ratio] 47.1 kg/m2 47.1 k g/m2 [facility] ([facility]) [place] body weight 120 [lb_av] 120 [lb_av] MEDEN T ([facility]) Body weight 126.554 kg 126.554 kg MEDENT ([facility]) Body surface area Derived from formula 2.27 m2 2.27 m2 [facility] ([facility]) Body height 62 [in_i] 62 [in_i] LOTUS ([facility]) Body height 64.5 [in_i] 64.5 [in_i] MEDENT ([facility]) 5'4.50" Body weight 279.00 [lb_av] 279.00 [lb_av] MEDEN T ([facility]) Body mass index (BMI) [Ratio] 47.1 kg/m2 47.1 k g/m2 [facility] ([facility]) [place] body weight 120 [lb_av] 120 [lb_av] MEDEN T ([facility]) Body weight 126.554 kg 126.554 kg [facility] ([facility]) Body surface area Derived from formula 2.27 m2 2.27 m2 [facility] ([facility]) Systolic blood pressure 126 mm[Hg] 126 mm[Hg] [facility] Diastolic blood pressure 78 mm[Hg] 78 mm[Hg] [facility] ([facility]) Heart rate 83 /min 83 /min [facility] ([facility]) Oxygen saturation in Arterial blood by Pulse oximetry 99 % 99 % [facility] ([facility]) Body weight 279.50 [lb_av] 279.50 [lb_av] MEDEN T ([facility]) Body height 64.5 [in_i] 64.5 [in_i] MEDENT ([facility]) 5'4.50" [place] body weight 120 [lb_av] 120 [lb_av] MEDEN T ([facility]) Body mass index (BMI) [Ratio] 47.2 kg/m2 47.2 k g/m2 [facility] ([facility]) Body weight 126.781 kg 126.781 kg MEDLOVE ([facility] ) Body surface area Derived from formula 2.27 m2 2.27 m2 [facility] ([facility], ) Diastolic blood pressure 87 mm[Hg] 87 mm[Hg] LOTUS ([facility]) Body height 62 [in_i] 62 [in_i] [facility] ([facility]) Body mass index (BMI) [Ratio] 50.9 kg/m2 50.9 k g/m2 LOT[facility] ([facility]) Systolic blood pressure 130 mm[Hg] 130 mm[Hg] [facility] Body weight 4450 [oz_av] 4450 [oz_av] LOTUS ([facility]) Diastolic blood pressure 87 mm[Hg] 87 mm[Hg] LOTUS ([facility]) Body height 62 [in_i] 62 [in_i] LOTUS ([facility]) Body mass index (BMI) [Ratio] 50.9 kg/m2 50.9 k g/m2 LOTUS ([facility]) Systolic blood pressure 130 mm[Hg] 130 mm[Hg] A THENA ([facility]) Body weight 4450 [oz_av] 4450 [oz_av] LOTUS ([facility]) Diastolic blood pressure 87 mm[Hg] 87 mm[Hg] LOTUS ([facility]) Body height 62 [in_i] 62 [in_i] LOTUS ([facility]) Body mass index (BMI) [Ratio] 50.9 kg/m2 50.9 k g/m2 LOTUS ([facility]) Systolic blood pressure 130 mm[Hg] 130 mm[Hg] A THENA ([facility]) Body weight 4450 [oz_av] 4450 [oz_av] LOTUS ([facility]) Body temperature 96.9 [degF] 96.9 [degF] MEDLOVE ([facility], ) Body height 64.5 [in_i] 64.5 [in_i] [facility] ([facility], ) 5'4.50" Body weight 275.00 [lb_av] 275.00 [lb_av] SOLOMON Merino ([facility]) Body mass index (BMI) [Ratio] 46.5 kg/m2 46.5 k g/m2 [facility] ([facility]) [place] body weight 120 [lb_av] 120 [lb_av] MEDEN T ([facility]) Body weight 124.740 kg 124.740 kg [facility] ([facility]) Body surface area Derived from formula 2.25 m2 2.25 m2 [facility] ([facility]) Systolic blood pressure 142 mm[Hg] 142 mm[Hg] EDENT ([facility]) Diastolic blood pressure 86 mm[Hg] 86 mm[Hg] [facility] ([facility]) Heart rate 72 /min 72 /min [facility] ([facility]) Oxygen saturation in Arterial blood by Pulse oximetry 98 % 98 % [facility] ([facility]) Body temperature 98.1 [degF] 98.1 [degF] [facility] ([facility]) Body height 62 [in_i] 62 [in_i] [facility] ([facility]) 5'2" Body weight 280.31 [lb_av] 280.31 [lb_av] MEDEN T ([facility]) Body mass index (BMI) [Ratio] 51.3 kg/m2 51.3 k g/m2 [facility] ([facility]) [place] body weight 110 [lb_av] 110 [lb_av] MEDEN T ([facility]) Body weight 127.150 kg 127.150 kg [facility] ([facility]) Body surface area Derived from formula 2.21 m2 2.21 m2 [facility] ([facility]) Body temperature 97.8 [degF] 97.8 [degF] [facility] ([facility]) Body height 62 [in_i] 62 [in_i] [facility] ([facility]) 5'2" Body weight 275.00 [lb_av] 275.00 [lb_av] MEDEN T ([facility]) Body mass index (BMI) [Ratio] 50.3 kg/m2 50.3 k g/m2 MARGARET ([facility], ) [place] body weight 110 [lb_av] 110 [lb_av] SOLOMON Merino ([facility], ) Body weight 124.740 kg 124.740 kg MARGARET ([facility], ) Patient Treatment Plan of Care Planned Activity Planned Date Details Description Data Source (s) Amoxicillin 875 MG Oral Tablet LOTUS ([facility]) Amoxicillin 875 MG Oral Tablet LOT[facility] ([facility]) Amoxicillin 875 MG Oral Tablet LOTUS ([facility])
[2021-09-05 16:30] VITALS: BP 158/90
== END 2021-09-05 17:36 | disposition home or self-care (01) ==
LOC: M ED 11:36
DX: R05.9 Cough, unspecified (principal); R51.9 Headache, unspecified; U07.1 COVID-19; Z97.5 Presence of (intrauterine) contraceptive device

== ENCOUNTER 2021-09-07 12:01 | Outpatient (CLI) | payer MEDICARE, MEDICAID ==
--- NOTE | 2021-09-05 16:14 | HPEPDOC ---
[facility] Medical History & Physical Date of Admission Sep 05, 2021 Date of Service: Sep 05, 2021 History and Physical CHIEF COMPLAINT: "I have COVID" HISTORY OF PRESENT ILLNESS: 46-year-old female with no reported past medical history presented to emergency department with complaints of nasal congestion, rhinorrhea and a loss of taste. She reports her symptoms started approximately 17 with congestion and rhinorrhea was tested in a urgent care clinic for Covid and was negative. Today she lost taste and came to emergency room department to get tested again, tested positive. Other than the symptoms stated above she had no other complaints. She denied chest pain, shortness of breath, abdominal pain, nausea, vomiting, problem with urination or bowel movements. PAST MEDICAL HISTORY: None reported PAST SURGICAL HISTORY: None reported SOCIAL HISTORY: Denies smoking. Drinks occasionally. Uses cannabis occasionally. FAMILY HISTORY: None reported ALLERGIES: Please see below. REVIEW OF SYSTEMS: 10 point review of system was negative except for what is noted in the HPI HOME MEDICATIONS: Please see below. PHYSICAL EXAMINATION: VITAL SIGNS: Please see below General: Lying in bed, no acute distress Head/Neck/Throat: Trachea midline, mucous membranes moist Eyes: Sclera anicteric, no erythema or discharge appreciated bilaterally Thorax: Normal respiratory effort on room air, lungs clear to auscultation bilaterally, no wheezes/rales/rhonchi Cardiovascular: Normal rate, regular rhythm, normal S1, S2; no S3, S4, rubs/gallops/murmurs Abdomen: Bowel sounds present, soft/nontender/nondistended Genitourinary: No CVA tenderness, no Florian in place Musculoskeletal: Moving all extremities, no edema Skin: Warm, dry Neurologic: AAOx3, speech fluent and goal-directed, no focal deficits, grossly intact LABORATORY DATA: See below. IMAGING: None to review at this time MICROBIOLOGY: Please see below. ASSESSMENT/PLAN: 46-year-old female with no reported past medical history presented to emergency department with congestion, rhinorrhea and a loss of taste. There was no respir atory distress appreciated on exam. She was saturating at 98% on room air. She tested positive for Covid 19. Due to her body habitus and BMI she would benefit from monoclonal antibodies. The risks and benefits were explained at length, which she is willing to accept. Consent was obtained and put into the chart. She should be receiving a phone call from the infusion center to be scheduled. Home Medications Scheduled Cetirizine HCl (Zyrtec Allergy) 10 Mg Tab, 10 MG PO DAILY Fluticasone Propionate (Flonase Allergy Relief) 50 Mcg/Act Spr, 50 MCG NA DAILY Omeprazole (Omeprazole) 20 Mg Tab, 20 MG PO DAILY Scheduled PRN Albuterol Sulfate (Proair Hfa) 8.5 Gm Hfa.aer.ad, 2 PUFF INH Q4-6HP PRN for wheezing Miscellaneous Medications Bupropion HCl (Bupropion HCl) 75 Mg Tablet Levonorgestrel (Mirena) 20 Mcg/24 Hr Iud, 20 MCG IU Zolpidem Tartrate (Zolpidem Tartrate) 10 Mg Tablet Allergies Coded Allergies: No Known Allergies (Unverified , 09/05/21) A-FIB/CHADSVASC A-FIB History Current/History of A-Fib/PAF?: No YAQUELIN SANCHEZ M.D. Sep 05, 2021 16:14
[2021-09-07 11:57] VITALS: BP 134/62
[~2021-09-07 12:01] MED LIST changes: +ACETAMINOPHEN TAB 650MG DOSE (2X325MG) PO PRN; +ALBUTEROL 90 MCG/ACT 8GM HFA INHALER INH PRN; +ALBUTEROL SULFATE 2.5 MG/0.5 ML INH NEB SOLN INH PRN; +BAMLANIVIMAB 700 MG, ETESEVIMAB 1,400 MG in NS 250 ML IV ONE; +EPINEPHrine INJ 1 MG/ML 1ML AMP IM PRN; +NS 1,000 ML IV SCH; +[UNRECOGNIZED DRUG - OTHER] IV ONE; +diphenhydrAMINE 50MG/ML VIAL (J1200) IV PRN; +methylPREDNISolone 125MG 2ML VIAL IV PRN
[2021-09-07 12:27] VITALS: BP 153/83
[2021-09-07 12:57] VITALS: BP 142/84
[2021-09-07 13:57] VITALS: BP 159/89
== END 2021-09-07 13:57 | disposition home or self-care (01) ==
LOC: M OPCLI4 12:01 → M OPCLI4PR 12:01
PROVIDERS: ATTEND Internal Medicine
DX: U07.1 COVID-19 (principal)

== ENCOUNTER → 2021-10-20 | Outpatient (CLI) | payer MEDICARE, MEDICAID ==
[~2021-10-20] MED LIST changes: -ACETAMINOPHEN TAB 650MG DOSE (2X325MG) PO PRN; -ALBUTEROL 90 MCG/ACT 8GM HFA INHALER INH PRN; -ALBUTEROL SULFATE 2.5 MG/0.5 ML INH NEB SOLN INH PRN; -BAMLANIVIMAB 700 MG, ETESEVIMAB 1,400 MG in NS 250 ML IV ONE; -EPINEPHrine INJ 1 MG/ML 1ML AMP IM PRN; -NS 1,000 ML IV SCH; -[UNRECOGNIZED DRUG - OTHER] IV ONE; -diphenhydrAMINE 50MG/ML VIAL (J1200) IV PRN; -methylPREDNISolone 125MG 2ML VIAL IV PRN
--- NOTE | 2021-10-20 15:05 | REP ---
INDICATION: PAIN IN HAND. COMPARISON: None. TECHNIQUE: Four views FINDINGS: The joint spaces are symmetric and relatively well maintained. There is no evidence of acute fracture or destructive osseous lesion. Tiny calcifications are seen adjacent to the lateral margin of the distal pole of the scaphoid. IMPRESSION: Soft tissue calcifications as described above. Etiology uncertain. Finding likely represents chronic calcific tendinous changes. <Electronically signed by Dallas Moreno > 10/20/21 [id number]
== END ==
LOC: M RAD 14:27
PROVIDERS: ATTEND Pediatrics
DX: M65.241 Calcific tendinitis, right hand (principal)

== ENCOUNTER 2022-05-17 20:35 | Emergency (ER) | payer OTHER, MEDICARE, MEDICAID ==
[~2022-05-17] VITALS: Ht 157.5 cm; Wt 118.3 kg
[~2022-05-17 20:35] MED LIST changes: -ACET1TAB16; +ACET300T48
[2022-05-17 20:36] VITALS: BP 155/97
[2022-05-17] MEDS ORDERED: NAPR-837 PO (22:57)
== END 2022-05-17 23:17 | disposition home or self-care (01) ==
LOC: M ED 20:35
DX: S66.811A Strain of other specified muscles, fascia and tendons at wrist and hand level, right hand, initial encounter (principal); X50.9XXA Other and unspecified overexertion or strenuous movements or postures, initial encounter; Y92.89 Other specified places as the place of occurrence of the external cause; Y99.0 Civilian activity done for income or pay; D64.9 Anemia, unspecified; F41.9 Anxiety disorder, unspecified; Z79.899 Other long term (current) drug therapy; Z97.5 Presence of (intrauterine) contraceptive device

== ENCOUNTER → 2022-06-07 | Outpatient (CLI) | payer MEDICAID, MEDICARE, OTHER ==
[~2022-06-07] MED LIST changes: -BUPR75TA5; +BUPR75TA5 PO; +CETI-24 PO; +CVS1CHW13 PO; +HAIRTAB15 PO; +NALT50TA4 PO; +NAPR-837 PO; +NAPR-885 PO; +PANT20TA6 PO; +VITMTA PO
== END ==
LOC: M LABSMTC 11:02
PROVIDERS: ATTEND Anesthesiology
DX: Z01.818 Encounter for other preprocedural examination (principal); Z11.52 Encounter for screening for COVID-19

== ENCOUNTER 2022-06-09 07:49 | Day surgery (SDC) | payer OTHER ==
[~2022-06-09] VITALS: Ht 157.5 cm; Wt 117.9 kg
[~2022-06-09 07:49] MED LIST changes: +LIDOCAINE W/EPINEPHRINE 1% 20ML VIAL ID ONE; +SODIUM BICARBONATE 8.4% INJ 50 ML SYRINGE XX ONE
[2022-06-09] MEDS ORDERED: SODIUM BICARBONATE 8.4% INJ 50MEQ 50 ML VIAL As Ordered ONE (08:07)
[2022-06-09] MEDS ORDERED: LIDOCAINE W/EPINEPHRINE 1% 20ML VIAL XX ONE (08:10)
[2022-06-09] MEDS ORDERED: SODIUM BICARBONATE 8.4% INJ 50MEQ 50 ML VIAL XX ONE (08:10)
[2022-06-09 09:47] VITALS: BP 137/82
== END 2022-06-09 09:56 | disposition home or self-care (01) ==
LOC: M SDC 07:49
PROVIDERS: ATTEND Orthopaedic Surgery Hand Surgery
DX: M65.4 Radial styloid tenosynovitis [de Quervain] (principal); G47.33 Obstructive sleep apnea (adult) (pediatric); M25.569 Pain in unspecified knee; J30.1 Allergic rhinitis due to pollen

== ENCOUNTER → 2022-10-07 | Outpatient (CLI) | payer OTHER, MEDICARE, MEDICAID ==
[~2022-10-07] MED LIST changes: -LIDOCAINE W/EPINEPHRINE 1% 20ML VIAL ID ONE; -SODIUM BICARBONATE 8.4% INJ 50 ML SYRINGE XX ONE
== END ==
LOC: M SOG 11:38
PROVIDERS: ATTEND Physician Assistant
DX: M79.642 Pain in left hand (principal)

== ENCOUNTER → 2023-07-26 | Outpatient (REF) | payer MEDICARE, MEDICAID, OTHER ==
[~2023-07-26] MED LIST changes: +FLUT50SP17; -FLUTISP
[2023-07-26 17:25] LABS: BASO % 0.5 % (0.0-1.0); EOS # 0.2 10^3/uL (0.0-0.5); EOS % 2.5 % (0.0-3.0); HEMATOCRIT 41.8 % (36.0-47.0); HEMOGLOBIN 12.8 g/dl (12.0-15.5); LYMPH % 34.4 % (24.0-44.0); MEAN CORPUSCULAR HEMOGLOBIN 26.4 pg (27.0-33.0); MEAN CORPUSCULAR HGB CONC 30.6 g/dl (32.0-36.5); MEAN CORPUSCULAR VOLUME 86.2 fl (80.0-96.0); MONO # 0.4 10^3/uL (0.0-0.8); MONO % 4.1 % (2.0-8.0); NEUTROPHILS # 5.2 10^3/uL (1.5-8.5); NEUTROPHILS % 58.3 % (36.0-66.0); PLATELET COUNT, AUTOMATED 287 10^3/uL (150-450); RED BLOOD COUNT 4.85 10^6/uL (4.00-5.40); WHITE BLOOD COUNT 8.8 10^3/uL (4.0-10.0)
[2023-07-26 17:34] LABS: ALBUMIN 3.4 G/DL (3.2-5.2); ALKALINE PHOSPHATASE 112 U/L (46-116); ALT/SGPT 26 U/L (7.0-40); AST/SGOT 15 U/L (<34); BILIRUBIN,TOTAL 0.3 MG/DL (0.3-1.2); BLOOD UREA NITROGEN 16 MG/DL (9-23); CALCIUM LEVEL 9.2 MG/DL (8.5-10.1); CARBON DIOXIDE LEVEL 27 MMOL/L (20-31); CHLORIDE LEVEL 104 MMOL/L (98-107); CHOLESTEROL LEVEL 210 MG/DL (<200); CHOLESTEROL RISK RATIO 4.83 (<5); CREATININE FOR GFR 0.68 MG/DL (0.55-1.30); GLOMERULAR FILTRATION RATE > 60.0 (>58); GLUCOSE, FASTING 116 MG/DL (60-100); HDL CHOLESTEROL 43.4 MG/DL (>40); LDL CHOLESTEROL 122.4 MG/DL (<100); NON-HDL-C 166.6 MG/DL; POTASSIUM SERUM 4.6 MMOL/L (3.5-5.1); SODIUM LEVEL 138 MMOL/L (136-145); THYROID STIMULATING HORMONE 2.415 uIU/ML (0.55-4.78); TOTAL PROTEIN 7.3 G/DL (5.7-8.2); TRIGLYCERIDES LEVEL 221 MG/DL (<150)
[2023-07-26 17:35] LABS: TOTAL 25(OH) VITAMIN D 22.8 NG/ML (20.0-100.0)
[2023-07-26 17:50] LABS: HEMOGLOBIN A1c 4.9 % (4.0-6.0)
== END ==
LOC: M LAB REF 16:50
PROVIDERS: ATTEND Nurse Practitioner Family
DX: E66.3 Overweight (principal); E55.9 Vitamin D deficiency, unspecified; R53.83 Other fatigue; Z79.899 Other long term (current) drug therapy

== ENCOUNTER → 2023-08-26 | Outpatient (CLI) | payer MEDICARE, MEDICAID | LOC: M RAD 14:03 | PROVIDERS: ATTEND Orthopaedic Surgery Hand Surgery | DX: M79.645 Pain in left finger(s) (principal) ==

== ENCOUNTER → 2023-11-15 | Outpatient (CLI) | payer MEDICARE, MEDICAID ==
[~2023-11-15] MED LIST changes: -FLUT50SP17; +FLUTISP; +OMEP40CA5 PO; +THERTAB52 PO; +VITA200032 PO
== END ==
LOC: M SOG 07:58
PROVIDERS: ATTEND Physician Assistant
DX: M25.562 Pain in left knee (principal)

== ENCOUNTER 2023-11-28 05:48 | Day surgery (SDC) | payer MEDICARE, MEDICAID ==
[~2023-11-28] VITALS: Ht 157.5 cm; Wt 127.1 kg
[2023-11-28] MEDS ORDERED: LR 1,000 ML IV SCH ×2 (06:40→08:25)
[2023-11-28] MEDS ORDERED: ceFAZolin SOD 1 GM in D5W MINI-BAG PLUS 50 ML IV ONE (06:55)
[2023-11-28] MEDS ORDERED: ceFAZolin SOD 2 GM in IV 1 EA IV ONE (06:55)
[2023-11-28] MEDS ORDERED: propofoL 200 MG/20 ML VIAL As Ordered ONE (07:11)
[2023-11-28] MEDS ORDERED: LIDOCAINE 2% 100MG/5ML SDV (FOR ANES.) As Ordered ONE (07:11)
[2023-11-28] MEDS ORDERED: fentaNYL 100 MCG/2 ML INJECTION As Ordered ONE (07:11)
[2023-11-28] MEDS ORDERED: MIDAZOLAM INJ 2MG/2ML VIAL As Ordered ONE (07:11)
[2023-11-28] MEDS ORDERED: BACITRACIN OINTMENT 30GM TUBE As Ordered ONE (07:15)
[2023-11-28] MEDS ORDERED: ONDANSETRON 4MG 2ML VIAL As Ordered ONE (07:47)
[2023-11-28] MEDS ORDERED: METOCLOPRAMIDE INJ 10MG/2ML VIAL As Ordered ONE (07:58)
[2023-11-28] MEDS ORDERED: ACETAMINOPHEN 1000MG 100ML IV BAG As Ordered ONE (07:59)
[2023-11-28] MEDS ORDERED: KETOROLAC 60MG 2ML VIAL As Ordered ONE (08:16)
[2023-11-28] MEDS ORDERED: HYDROMORPHONE HCL 0.5 MG/ 0.5 ML SYRINGE IV PRN (08:25)
[2023-11-28] MEDS ORDERED: fentaNYL 100 MCG/2 ML INJECTION IV PRN (08:25)
[2023-11-28] MEDS ORDERED: ONDANSETRON 4MG 2ML VIAL IV PRN (08:25)
[2023-11-28] MEDS ORDERED: PERC5TAB12 PO (08:56)
[2023-11-28] MEDS: oxyCODONE 5MG TAB PO PRN (09:05)
[2023-11-28 09:21] VITALS: BP 152/83; TEMP 97.6; O2SAT 98
== END 2023-11-28 10:51 | disposition home or self-care (01) ==
LOC: M SDC 05:48
PROVIDERS: ATTEND Orthopaedic Surgery Hand Surgery
DX: M25.742 Osteophyte, left hand (principal); Z79.899 Other long term (current) drug therapy
CPT/HCPCS: 26200; 76000; 81025; J0131; J0665; J1100; J1885; J2250; J2405; J2765; J3010

== ENCOUNTER 2024-02-27 18:21 | Emergency (ER) | payer MEDICARE, MEDICAID ==
[~2024-02-27 18:21] MED LIST changes: +PERC5TAB12 PO
[2024-02-27] MEDS ORDERED: IBUP-1824 PO (18:31)
[2024-02-27] MEDS: ACETAMINOPHEN 500 MG TAB PO ONE (18:57)
[2024-02-27 19:16] LABS: BASO % 0.3 % (0.0-1.0); EOS % 0.1 % (0.0-3.0); HEMATOCRIT 37.6 % (36.0-47.0); LYMPH # 1.1 10^3/uL (1.5-5.0); LYMPH % 7.6 % (24.0-44.0); MEAN CORPUSCULAR HGB CONC 31.9 g/dl (32.0-36.5); MEAN CORPUSCULAR VOLUME 84.5 fl (80.0-96.0); MONO % 6.9 % (2.0-8.0); NEUTROPHILS % 84.5 % (36.0-66.0); PLATELET COUNT, AUTOMATED 244 10^3/uL (150-450); RED BLOOD COUNT 4.45 10^6/uL (4.00-5.40); WHITE BLOOD COUNT 14.2 10^3/uL (4.0-10.0)
[2024-02-27 19:43] LABS: BLOOD UREA NITROGEN 12 MG/DL (9-23); CALCIUM LEVEL 8.4 MG/DL (8.5-10.1); CARBON DIOXIDE LEVEL 22 MMOL/L (20-31); CHLORIDE LEVEL 108 MMOL/L (98-107); CREATININE FOR GFR 0.87 MG/DL (0.55-1.30); GLOMERULAR FILTRATION RATE > 60.0 (>58); GLUCOSE, FASTING 126 MG/DL (60-100); POTASSIUM SERUM 3.6 MMOL/L (3.5-5.1); SODIUM LEVEL 140 MMOL/L (136-145)
[2024-02-27] MEDS ORDERED: ISOVUE-370 76% 100ML VIAL As Ordered ONE (21:17)
[2024-02-27 21:46] LABS: Trichomonas vaginalis (AMP) NOT DETECTED (NEGATIVE)
[2024-02-27 22:10] LABS: GC DNA AMPLIFICATION NEGATIVE (NEGATIVE)
[2024-02-27 22:16] VITALS: BP 138/84; TEMP 99.1; O2SAT 97
[2024-02-27] MEDS: cefTRIAXone SOD 1 GM in D5W MINI-BAG PLUS 50 ML IV ONE (22:21)
[2024-02-27] MEDS: IBUPROFEN 600MG TAB PO ONE (22:21)
[2024-02-27 22:27] LABS: HCG, SERUM QUALITATIVE NEGATIVE (NEGATIVE)
[2024-02-27] MEDS ORDERED: CEFP200T PO (23:05)
== END 2024-02-28 00:31 | disposition home or self-care (01) ==
LOC: M ED 18:21
DX: N10 Acute pyelonephritis (principal); G47.33 Obstructive sleep apnea (adult) (pediatric); K21.9 Gastro-esophageal reflux disease without esophagitis; M54.50 Low back pain, unspecified; Z79.1 Long term (current) use of non-steroidal anti-inflammatories (NSAID); Z79.2 Long term (current) use of antibiotics
CPT/HCPCS: 74177; 80048; 81001; 83605; 84703; 85025; 87040; 87088; 87186; 87661; 87810; 87850; 96374; 99283; J0696; Q9967

== ENCOUNTER → 2024-06-28 | Outpatient (REF) | payer MEDICARE, MEDICAID ==
[~2024-06-28] MED LIST changes: +CEFP200T PO; +IBUP-1824 PO
[2024-06-28 17:28] LABS: BASO # 0.1 10^3/uL (0.0-0.2); BASO % 0.5 % (0.0-1.0); EOS # 0.2 10^3/uL (0.0-0.5); EOS % 1.7 % (0.0-3.0); HEMATOCRIT 43.1 % (36.0-47.0); HEMOGLOBIN 13.5 g/dl (12.0-15.5); LYMPH # 3.5 10^3/uL (1.5-5.0); LYMPH % 29.3 % (24.0-44.0); MEAN CORPUSCULAR HEMOGLOBIN 26.4 pg (27.0-33.0); MEAN CORPUSCULAR HGB CONC 31.3 g/dl (32.0-36.5); MEAN CORPUSCULAR VOLUME 84.2 fl (80.0-96.0); MONO # 0.6 10^3/uL (0.0-0.8); MONO % 5.1 % (2.0-8.0); NEUTROPHILS # 7.6 10^3/uL (1.5-8.5); NEUTROPHILS % 62.9 % (36.0-66.0); PLATELET COUNT, AUTOMATED 308 10^3/uL (150-450); RED BLOOD COUNT 5.12 10^6/uL (4.00-5.40)
[2024-06-28 18:07] LABS: THYROID STIMULATING HORMONE 1.268 uIU/ML (0.55-4.78)
[2024-06-28 18:09] LABS: BLOOD UREA NITROGEN 16 MG/DL (9-23); CALCIUM LEVEL 9.8 MG/DL (8.5-10.1); CARBON DIOXIDE LEVEL 27 MMOL/L (20-31); CHLORIDE LEVEL 106 MMOL/L (98-107); CHOLESTEROL LEVEL 222 MG/DL (<200); CHOLESTEROL RISK RATIO 4.46 (<5); CREATININE FOR GFR 0.71 MG/DL (0.55-1.30); GLOMERULAR FILTRATION RATE > 60.0 (>58); GLUCOSE, FASTING 94 MG/DL (60-100); HDL CHOLESTEROL 49.7 MG/DL (>40); LDL CHOLESTEROL 141.7 MG/DL (<100); NON-HDL-C 172.3 MG/DL; POTASSIUM SERUM 5.2 MMOL/L (3.5-5.1); SODIUM LEVEL 138 MMOL/L (136-145); TRIGLYCERIDES LEVEL 153 MG/DL (<150)
== END ==
LOC: M LAB REF 16:46
PROVIDERS: ATTEND Nurse Practitioner Family
DX: E78.00 Pure hypercholesterolemia, unspecified (principal); D72.829 Elevated white blood cell count, unspecified; Z68.43 Body mass index [BMI] 50.0-59.9, adult; E66.9 Obesity, unspecified

== ENCOUNTER → 2024-07-02 | Outpatient (REF) | payer MEDICARE, MEDICAID ==
[2024-07-02 13:43] LABS: APPEARANCE, URINE HAZY (CLEAR); BACTERIA, URINE AUTO 1+ (NEGATIVE); BILIRUBIN, URINE AUTO NEGATIVE (NEGATIVE); BLOOD, URINE BLOOD 2+ (NEGATIVE); COLOR, URINE YELLOW (YELLOW); GLUCOSE, URINE (UA) AUTO NEGATIVE (NEGATIVE); KETONE, URINE AUTO NEGATIVE (NEGATIVE); LEUKOCYTE ESTERASE, URINE AUTO 3+ (NEGATIVE); NITRITE, URINE AUTO NEGATIVE (NEGATIVE); PROTEIN, URINE AUTO NEGATIVE (NEGATIVE); RBC, URINE AUTO 6 /HPF (0-3); SPECIFIC GRAVITY URINE AUTO 1.012 (1.002-1.035); SQUAMOUS EPITHELIAL CELL UR AU 1 /HPF (0-6); UROBILINOGEN, URINE AUTO 0.2 mg/dL (0.0-2.0); WBC, URINE AUTO TNTC /HPF (0-3)
== END ==
LOC: M LAB REF 12:22
PROVIDERS: ATTEND Physician Assistant Medical
DX: N39.0 Urinary tract infection, site not specified (principal)

== ENCOUNTER → 2024-08-31 | Outpatient (CLI) | payer MEDICARE, MEDICAID | LOC: M SOG 07:55 | PROVIDERS: ATTEND Physician Assistant | DX: M25.511 Pain in right shoulder (principal); Z53.8 Procedure and treatment not carried out for other reasons ==

== ENCOUNTER → 2024-09-06 | Outpatient (CLI) | payer MEDICARE, MEDICAID | LOC: M SOG 07:56 | PROVIDERS: ATTEND Physician Assistant | DX: M25.511 Pain in right shoulder (principal) ==

== ENCOUNTER → 2025-08-09 | Outpatient (CLI) | payer MEDICARE, MEDICAID ==
[~2025-08-09] MED LIST changes: -PHEN-239 PO; +PHEN37.511 PO; +ZOLP10TA11; -ZOLP10TA2
== END ==
LOC: M SOG 07:40
PROVIDERS: ATTEND Physician Assistant
DX: M17.11 Unilateral primary osteoarthritis, right knee (principal)